=== PATIENT | female | born 1960 | race Hispanic/Latino ===

== ENCOUNTER → 2020-03-11 | Outpatient (REF) | payer OTHER ==
[~2020-03-11] MED LIST: AMIT50TA PO; ATOR40TA75 PO; OMEP10CASR PO; TOPI200T7 PO
[2020-04-25 11:47] LABS: ALBUMIN 3.9 GM/DL (3.2-5.2); BILIRUBIN,TOTAL 0.3 MG/DL (0.2-1.0); CALCIUM LEVEL 9.1 MG/DL (8.5-10.1); CHOLESTEROL RISK RATIO 2.875 (<5); CREATININE FOR GFR 1.2 MG/DL (0.55-1.30); GLOMERULAR FILTRATION RATE 49.1 (>51); POTASSIUM SERUM 4.4 MEQ/L (3.5-5.1); THYROID STIMULATING HORMONE 2.69 uIU/ML (0.358-3.740); TOTAL PROTEIN 6.9 GM/DL (6.4-8.2)
== END ==
LOC: M LAB REF 08:05
PROVIDERS: ATTEND Family Medicine Addiction Medicine
DX: E78.2 Mixed hyperlipidemia (principal)

== ENCOUNTER → 2020-05-05 | Outpatient (CLI) | payer OTHER ==
[2020-05-05 12:28] LABS: BASO # 0.1 10^3/uL (0.0-0.2); BASO % 0.8 % (0.0-1.0); EOS # 0.3 10^3/uL (0.0-0.5); HEMATOCRIT 45.2 % (36.0-47.0); HEMOGLOBIN 14.3 g/dl (12.0-15.5); LYMPH # 2.4 10^3/uL (1.5-5.0); LYMPH % 37.7 % (24.0-44.0); MEAN CORPUSCULAR HEMOGLOBIN 28.9 pg (27.0-33.0); MEAN CORPUSCULAR HGB CONC 31.6 g/dl (32.0-36.5); MEAN CORPUSCULAR VOLUME 91.5 fl (80.0-96.0); MONO # 0.4 10^3/uL (0.0-0.8); MONO % 6.8 % (0.0-5.0); NEUTROPHILS # 3.2 10^3/uL (1.5-8.5); NEUTROPHILS % 50.2 % (36.0-66.0); PLATELET COUNT, AUTOMATED 311 10^3/uL (150-450); RED BLOOD COUNT 4.94 10^6/uL (4.00-5.40); WHITE BLOOD COUNT 6.3 10^3/uL (4.0-10.0)
[2020-05-05 13:03] LABS: ALBUMIN 3.9 GM/DL (3.2-5.2); ALT/SGPT 29 U/L (12-78); BILIRUBIN,TOTAL 0.3 MG/DL (0.2-1.0); BLOOD UREA NITROGEN 18 MG/DL (7-18); CALCIUM LEVEL 9.5 MG/DL (8.5-10.1); CARBON DIOXIDE LEVEL 25 MEQ/L (21-32); CHLORIDE LEVEL 110 MEQ/L (98-107); CREATININE FOR GFR 1.21 MG/DL (0.55-1.30); GLOMERULAR FILTRATION RATE 48.7 (>51); GLUCOSE, FASTING 99 MG/DL (70-100); POTASSIUM SERUM 4.2 MEQ/L (3.5-5.1); RHEUMATOID FACTOR QUANT < 10.0 IU/ML (<15.0); SODIUM LEVEL 142 MEQ/L (136-145); TOTAL PROTEIN 7.2 GM/DL (6.4-8.2)
[2020-05-05 13:05] LABS: VITAMIN B12 LEVEL 418 PG/ML
[2020-05-05 13:07] LABS: FOLATE 7.5 NG/ML
[2020-05-05 13:17] LABS: ERYTHROCYTE SEDIMENTATION RATE 18 mm/hr (0-30)
[2020-05-05 13:27] LABS: HEMOGLOBIN A1c 5.9 %
[2020-05-09 19:06] LABS: ANTINUCLEAR ANTIBODIES DIRECT Negative (Negative); TOPIRAMATE LEVEL 12.1 ug/mL (2.0-25.0); VITAMIN B1 LEVEL WHOLE BLOOD 124.4 nmol/L (66.5-200.0); VITAMIN B6,PYRIDOXAL PHOSPHATE 5.2 ug/L (2.0-32.8); VITAMIN E(ALPHA TOCOPHEROL) 11.7 mg/L (7.0-25.1); VITAMIN E(GAMMA TOCOPHEROL) 2.8 mg/L (0.5-5.5)
== END ==
LOC: M LAB 09:31
PROVIDERS: ATTEND Psychiatry & Neurology Neurology
DX: R51 Headache (principal); E11.9 Type 2 diabetes mellitus without complications; G40.89 Other seizures; M19.90 Unspecified osteoarthritis, unspecified site

== ENCOUNTER → 2020-06-18 | Outpatient (CLI) | payer OTHER | LOC: M LABSMTC 12:10 | PROVIDERS: ATTEND Anesthesiology | DX: Z01.812 Encounter for preprocedural laboratory examination (principal); Z20.828 Contact with and (suspected) exposure to other viral communicable diseases ==

== ENCOUNTER 2020-06-23 09:11 | Day surgery (SDC) | payer OTHER ==
[~2020-06-23] VITALS: Ht 162.6 cm; Wt 92.0 kg
[~2020-06-23 09:11] MED LIST changes: +NS 1,000 ML IV ONE
[2020-06-23] MEDS ORDERED: LIDOCAINE 2% 100MG/5ML SDV (FOR ANES.) As Ordered ONE (09:32)
[2020-06-23] MEDS ORDERED: fentaNYL 100 MCG/2 ML INJECTION (J3010) As Ordered ONE (10:15)
[2020-06-23] MEDS ORDERED: propofoL 500 MG/50 ML VIAL As Ordered ONE (10:27)
[2020-06-23 11:25] VITALS: BP 118/60
--- NOTE | 2020-06-23 11:27 | ROOR ---
Patient Name: Shanta Lees Procedure Date: 06/23/2020 10:28 AM Date of : 1960 Age: 59 Room: [facility] Gender: Female Note Status: Finalized Procedure: Upper GI endoscopy Indications: Heartburn, Suspected gastro-esophageal reflux disease Providers: Randy Ledesma MD Referring MD: Higinio COLLAZO MD Requesting Provider: Medicines: Monitored Anesthesia Care Complications: No immediate complications. Procedure: Pre-Anesthesia Assessment: - Prior to the procedure, a History and Physical was performed, and patient medications and allergies were reviewed. The patient is competent. The risks and benefits of the procedure and the sedation options and risks were discussed with the patient. All questions were answered and informed consent was obtained. Patient identification and proposed procedure were verified by the physician, the nurse and the anesthesiologist in the procedure room. Mental Status Examination: alert and oriented. Airway Examination: normal oropharyngeal airway and neck mobility. Respiratory Examination: clear to auscultation. CV Examination: normal. Prophylactic Antibiotics: The patient does not require prophylactic antibiotics. Prior Anticoagulants: The patient has taken no previous anticoagulant or antiplatelet agents. ASA Grade Assessment: II - A patient with mild systemic disease. After reviewing the risks and benefits, the patient was deemed in satisfactory condition to undergo the procedure. The anesthesia plan was to use monitored anesthesia care (MAC). Immediately prior to administration of medications, the patient was re-assessed for adequacy to receive sedatives. The heart rate, respiratory rate, oxygen saturations, blood pressure, adequacy of pulmonary ventilation, and response to care were monitored throughout the procedure. The physical status of the patient was re-assessed after the procedure. The Endoscope was introduced through the mouth, and advanced to the second part of duodenum. The upper GI endoscopy was accomplished without difficulty. The patient tolerated the procedure well. Findings: The Z-line was irregular and was found 40 cm from the incisors. No gross lesions were noted in the entire esophagus. Scattered mild inflammation characterized by erythema and granularity was found in the gastric antrum. Biopsies were taken with a cold forceps for Helicobacter pylori testing. Verification of patient identification for the specimen was done by the physician and nurse using the patient's name, date and medical record number. Estimated blood loss was minimal. The duodenal bulb and second portion of the duodenum were normal. Impression: - Z-line irregular, 40 cm from the incisors. - No gross lesions in esophagus. - Gastritis. Biopsied. - Normal duodenal bulb and second portion of the duodenum. Recommendation: - Patient has a contact number available for emergencies. The signs and symptoms of potential delayed complications were discussed with the patient. Return to normal activities tomorrow. Written discharge instructions were provided to the patient. - High fiber diet. - Continue present medications. - Await pathology results. - Follow an antireflux regimen. - Telephone GI clinic for pathology results in 2 weeks. - Return to primary care physician. Procedure Code(s): --- Professional --- 59245, Esophagogastroduodenoscopy, flexible, transoral; with biopsy, single or multiple Diagnosis Code(s): --- Professional --- K22.8, Other specified diseases of esophagus K29.70, Gastritis, unspecified, without bleeding R12, Heartburn CPT copyright 2019 [employer]. All rights reserved. The codes documented in this report are preliminary and upon emergency communications dispatcher review may be revised to meet current compliance requirements. Randy Ledesma MD Randy Ledesma MD 06/23/2020 11:26:36 AM Electronically signed by Randy Ledesma MD Number of Addenda: 0 Note Initiated On: 06/23/2020 10:28 AM Estimated Blood Loss: Estimated blood loss was minimal.
--- NOTE | 2020-06-23 11:30 | ROOR ---
Patient Name: Shanta Colon Procedure Date: 06/23/2020 10:28 AM Date of : 1960 Age: 59 Room: [facility] Gender: Female Note Status: Finalized Procedure: Colonoscopy Indications: High risk colon cancer surveillance: Personal history of colonic polyps Providers: Randy Ledesma MD Referring MD: Higinio COLLAZO MD Requesting Provider: Medicines: Monitored Anesthesia Care Complications: No immediate complications. Procedure: Pre-Anesthesia Assessment: - Prior to the procedure, a History and Physical was performed, and patient medications and allergies were reviewed. The patient is competent. The risks and benefits of the procedure and the sedation options and risks were discussed with the patient. All questions were answered and informed consent was obtained. Patient identification and proposed procedure were verified by the physician, the nurse and the anesthesiologist in the procedure room. Mental Status Examination: alert and oriented. Airway Examination: normal oropharyngeal airway and neck mobility. Respiratory Examination: clear to auscultation. CV Examination: normal. Prophylactic Antibiotics: The patient does not require prophylactic antibiotics. Prior Anticoagulants: The patient has taken no previous anticoagulant or antiplatelet agents. ASA Grade Assessment: II - A patient with mild systemic disease. After reviewing the risks and benefits, the patient was deemed in satisfactory condition to undergo the procedure. The anesthesia plan was to use monitored anesthesia care (MAC). Immediately prior to administration of medications, the patient was re-assessed for adequacy to receive sedatives. The heart rate, respiratory rate, oxygen saturations, blood pressure, adequacy of pulmonary ventilation, and response to care were monitored throughout the procedure. The physical status of the patient was re-assessed after the procedure. The Colonoscope was introduced through the anus and advanced to the terminal ileum, with identification of the appendiceal orifice and IC valve. The colonoscopy was performed without difficulty. The patient tolerated the procedure well. The quality of the bowel preparation was good. The terminal ileum, ileocecal valve, appendiceal orifice, and rectum were photographed. Scope insertion time was 2 minutes. Scope withdrawal time was 9 minutes. The total duration of the procedure was 14 minutes. Findings: The perianal and digital rectal examinations were normal. The terminal ileum appeared normal. Two sessile polyps were found in the recto-sigmoid colon and transverse colon. The polyps were 4 to 6 mm in size. These polyps were removed with a jumbo cold forceps. Resection and retrieval were complete. Verification of patient identification for the specimen was done by the physician and nurse using the patient's name, date and medical record number. Estimated blood loss was minimal. A few small-mouthed diverticula were found from sigmoid to transverse colon. There was no evidence of diverticular bleeding. The ileocecal valve was mildly lipomatous. Biopsies were taken with a cold forceps for histology. Non-bleeding external and internal hemorrhoids were found during retroflexion. The hemorrhoids were medium-sized. Impression: - The examined portion of the ileum was normal. - Two 4 to 6 mm polyps at the recto-sigmoid colon and in the transverse colon, removed with a jumbo cold forceps. Resected and retrieved. - Mild diverticulosis from sigmoid to transverse colon. There was no evidence of diverticular bleeding. - Lipomatous ileocecal valve. Biopsied. - Non-bleeding external and internal hemorrhoids. Recommendation: - Patient has a contact number available for emergencies. The signs and symptoms of potential delayed complications were discussed with the patient. Return to normal activities tomorrow. Written discharge instructions were provided to the patient. - High fiber diet. - Continue present medications. - Use fiber, for example Citrucel, Fibercon, Konsyl or Metamucil. - Await pathology results. - Repeat colonoscopy in 5-10 years for surveillance based on pathology results. - Telephone GI clinic for pathology results in 2 weeks. - Return to primary care physician. Procedure Code(s): --- Professional --- 75633, Colonoscopy, flexible; with biopsy, single or multiple Diagnosis Code(s): --- Professional --- Z86.010, Personal history of colonic polyps K64.8, Other hemorrhoids K63.5, Polyp of colon K63.89, Other specified diseases of intestine K57.30, Diverticulosis of large intestine without perforation or abscess without bleeding CPT copyright 2019 [employer]. All rights reserved. The codes documented in this report are preliminary and upon packer and carry out review may be revised to meet current compliance requirements. Randy Ledesma MD Randy Ledesma MD 06/23/2020 11:30:05 AM Electronically signed by Randy Ledesma MD Number of Addenda: 0 Note Initiated On: 06/23/2020 10:28 AM Estimated Blood Loss: Estimated blood loss was minimal.
== END 2020-06-23 12:00 | disposition home or self-care (01) ==
LOC: M OPP 09:11
PROVIDERS: ATTEND Internal Medicine Gastroenterology
DX: Z86.010 Personal history of colon polyps (principal); Z09 Encounter for follow-up examination after completed treatment for conditions other than malignant neoplasm; K64.8 Other hemorrhoids; K63.5 Polyp of colon; K63.89 Other specified diseases of intestine; K57.30 Diverticulosis of large intestine without perforation or abscess without bleeding; K22.8 Other specified diseases of esophagus; K29.70 Gastritis, unspecified, without bleeding; R12 Heartburn; Z79.899 Other long term (current) drug therapy; Z88.2 Allergy status to sulfonamides; Z88.5 Allergy status to narcotic agent; Z88.8 Allergy status to other drugs, medicaments and biological substances; Z87.891 Personal history of nicotine dependence
CPT/HCPCS: 43239; 45380; 88305; J3010

== ENCOUNTER → 2020-08-14 | Outpatient (REF) | payer OTHER ==
[~2020-08-14] MED LIST changes: -NS 1,000 ML IV ONE
[2020-08-14 17:50] LABS: APPEARANCE, URINE CLEAR (CLEAR); BACTERIA, URINE AUTO 1+ (NEGATIVE); BILIRUBIN, URINE AUTO NEGATIVE (NEGATIVE); BLOOD, URINE BLOOD NEGATIVE (NEGATIVE); COLOR, URINE AMBER (YELLOW); GLUCOSE, URINE (UA) AUTO NEGATIVE (NEGATIVE); KETONE, URINE AUTO NEGATIVE (NEGATIVE); LEUKOCYTE ESTERASE, URINE AUTO TRACE (NEGATIVE); MUCUS, URINE SMALL (NEGATIVE); NITRITE, URINE AUTO POSITIVE (NEGATIVE); PROTEIN, URINE AUTO NEGATIVE (NEGATIVE); RBC, URINE AUTO 0 /HPF (0-3); SPECIFIC GRAVITY URINE AUTO 1.004 (1.002-1.035); SQUAMOUS EPITHELIAL CELL UR AU 2 /HPF (0-6); UROBILINOGEN, URINE AUTO 0.2 mg/dL (0.0-2.0); WBC, URINE AUTO 2 /HPF (0-3)
== END ==
LOC: M LAB REF 16:43
PROVIDERS: ATTEND Family Medicine Addiction Medicine
DX: R30.9 Painful micturition, unspecified (principal)

== ENCOUNTER → 2020-08-26 | Outpatient (CLI) | payer OTHER ==
--- NOTE | 2020-08-28 | ECWPNPC ---
PATIENT NAME: ELISSA ALVAREZ : 1960 GENDER: FEMALE VISIT DATE: 08/26/2020 DISCHARGE DATE: 08/26/20 1424 VISIT LOCKED DATE TIME: PHYSICIAN: DENA ELKINS RESOURCE: DENA ELKINS REASON FOR APPOINTMENT 1. BACK PAIN HISTORY OF PRESENT ILLNESS GENERAL: 59-YEAR-OLD FEMALE REFERRED BY [facility] TO EVALUATE CHRONIC NECK AND LOW BACK PAIN. CHIEF AREA OF PAIN IS LOWER BACK WITH RADIATION INTO HER LEFT LEG. ALSO SUFFERS FROM NEUROPATHY. REPORTS FREQUENT FALLING. WAS DOING WELL AFTER PHYSICAL THERAPY AND LUMBAR EPIDURAL STEROID INJECTION THAT WAS DONE IN [place] ONE YEAR AGO UNTIL SHE FELL THIS PAST SUMMER FRACTURING HER RIGHT FOOT. STATES HER LOW BACK PAIN HAS BEEN SIGNIFICANTLY INCREASED SINCE FALL. DENIES URINARY OR BOWEL INCONTINENCE. NO RECENT MRI IMAGING OF THE LUMBAR SPINE. PATIENT STATES SHE HAS LIPOMA AROUND HER SPINAL CORD THAT PAIN SPECIALIST IN [place] WERE CONTEMPLATING DCS TRIAL BUT THEN THEY MOVED. DENIES SADDLE PARESTHESIAS. NO RECENT ILLNESS OR SUDDEN WEIGHT LOSS. -. FALL RISK SCREENING: SCREENING :ONE FALL WITH INJURY IN THE PAST YEAR PATIENT FELL AND BROKE FOOT. PATIENT WAS SEEN AT [facility]. PAIN SCREENING: PATIENT HAS A COMPLAINT OF ACUTE OR CHRONIC PAIN :NO NURSING NOTE: -. PAIN CENTER INTAKE QUESTIONS: DO YOU HAVE A HISTORY OF MRSA? :NO DO YOU TAKE A BLOOD THINNERS? :NO DO YOU HAVE ANY BLEEDING DISORDERS? :NO ANY NEW NUMBNESS OR WEAKNESS IN YOUR LEGS OR ARMS? :NO ANY PACEMAKER,DEFIBRILLATOR, OR DORSAL COLUMN STIMULATOR? :NO DO YOU HAVE ANY RASHES OR OPEN SORES? :YES PATIENT STATES SHE HAS A RASH ON RIGHT LEG ABOVE KNEE. ARE YOU ALLERGIC TO IV DYE? :NO ARE YOU DIABETIC? :NO ANY NEW PROBLEMS WITH YOUR MEDICATIONS? :NO HAVE YOU RECEIVED A VACCINE IN THE PAST 30 DAYS? :NO DO YOU PLAN TO RECEIVE A VACCINE IN THE NEXT 21 DAYS? :YES PATIENT WOULD LIKE COVID VACCINATION WHEN IT BECOMES AVAILABLE. DO YOU NEED ANY PRESCRIPTION? :NO DO YOU TAKE ANY IMMUNOSUPPRESSIVE MEDICATIONS? :NO IS THERE A CHANCE YOU COULD BE ? :NO ARE YOU BREAST FEEDING? :NO CURRENT MEDICATIONS TAKING TOPIRAMATE 200 MG TABLET TAKE ONE TABLET BY MOUTH TWICE A DAY ORALLY TAKING CHLORHEXIDINE GLUCONATE 0.12 % SOLUTION RINSE MOUTH WITH 10ML FOR 1 MINUTE BEFORE BED MOUTH/THROAT TAKING AMITRIPTYLINE HCL 50 MG TABLET 2 TABLET AT BEDTIME ORALLY ONCE A DAY TAKING LIDOCAINE 4 % PATCH DIRECTED EXTERNALLY TAKING LIPITOR 40 MG TABLET 1 TABLET ORALLY ONCE A DAY TAKING TOPAMAX 200 MG TABLET DIRECTED ORALLY TWICE DAILY NOT-TAKING OMEPRAZOLE MAGNESIUM 20 MG TABLET DELAYED RELEASE 1 TABLET 30 MINUTES BEFORE MORNING MEAL ORALLY ONCE A DAY NOT-TAKING ALPRAZOLAM 0.25 MG TABLET (SCHEDULE IV DRUG) TAKE 1 TABLET BY MOUTH ONE HOUR BEFORE MRI MAXIMUM DAILY DOSE 1 ORAL MEDICATION LIST REVIEWED AND RECONCILED WITH THE PATIENT PAST MEDICAL HISTORY GENERALIZED CONVULSIVE EPILEPSY LOCALIZATION-RELATED EPILEPSY LOW BACK PAIN SPONDYLOLYSIS LUMBAR RADICULOPATHY NECK PAIN 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 MIGRAINE WITHOUT AURA, NOT REFRACTORY DISORDERS OF INITIATING AND MAINTAINING SLEEP BILATERAL CARPAL TUNNEL SYNDROME LIPOMITOSIS ALLERGIES VALPROIC ACID SULFAMETHOXAZOLE SURGICAL HISTORY OOPHERECTOMY 2003 COMPLETE HYSTERECTOMY 2002 SOCIAL HISTORY GENERAL: TOBACCO USE ARE YOU A:NONSMOKER LATEX QUESTIONNAIRE LATEX ALLERGY : HAVE YOU EVER DEVELOPED ANY TYPE OF REACTION AFTER HANDLING LATEX PRODUCTS SUCH RUBBER GLOVES, CONDOMS, DIAPHRAGMS, BALLOONS, SOCKS, OR UNDERWEAR?NO LATEX ALLERGY : HAVE YOU EVER DEVELOPED ANY TYPE OF REACTION DURING OR AFTER DENTAL APPOINTMENT, VAGINAL/RECTAL EXAMINATION, SURGICAL PROCEDURE, OR ANY OTHER EXPOSURE?NO LATEX RISK : HAVE YOU EVER HAD ANY DIFFICULTY BREATHING OR HIVES AFTER EATING OR HANDLING ANY FRUITS, OR VEGETABLES; SUCH KIWI, BANANAS, STONE FRUITS, OR CHESTNUTSNO LATEX RISK : DO YOU HAVE A PREVIOUS PERSONAL HISTORY OF MORE THAN NINE SURGERIES, SPINA BIFIDA, OR REPEATED CATHERIZATIONS? NO LATEX RISK : ARE YOU FREQUENTLY EXPOSED TO LATEX PRODUCTS IN YOUR OCCUPATION?NO DATE ASKED : 08/26/2020 ALCOHOL USE: NO. RECREATIONAL DRUG USE DRUG USE?YES LEARNING BARRIERS / SPECIAL NEEDS BARRIERS TO LEARNING?NO HEARING IMPAIRED?NO VISION IMPAIRED?YES :CORRECTIVE LENSES COGNITIVELY IMPAIRED?YES PATIENT STATES SHE BELIEVES IT STEMS FROM THE SEIZURES. :LEARNING DISABILITY READINESS TO LEARN?YES LEARNING PREFERENCES?YES :BOOKLETS, HANDOUTS LEARNING CAPABILITIES PRESENT?YES EMOTIONAL BARRIERS?NO SPECIAL DEVICES?YES :CANE, BRACE SURGICAL AIDE NEEDED?NO HOSPITALIZATION/MAJOR DIAGNOSTIC PROCEDURE HOSPITALIZATIONS FROM ABOVE SURGERIES REVIEW OF SYSTEMS CONSTITUTIONAL: ANY RECENT FEVER NO . CHILLS NO . WEIGHT CHANGE OF UNKNOWN REASONS NO . MUSCULOSKELETAL: ANY UNUSUAL JOINT PAIN OR SWELLING NOT MENTIONED NO . SYSTEMIC LUPUS NO . ANY NEUROMUSCULAR DISORDER NOT MENTIONED NO . LYME DISEASE NO . GASTROENTEROLOGY: ANY NEW CHANGE IN BOWEL CONTROL? NO . HISTORY OF LIVER DISORDER NOT MENTIONED NO . HISTORY OF UNUSUAL ABDOMINAL PAIN OR CRAMPING NOT MENTIONED NO . NO CONSTIPATION. GENITOURINARY: ANY NEW CHANGE IN BLADDER CONTROL? NO . ANY RENAL/KIDNEY CONDITON NOT MENTIONED NO . NEUROLOGY: HISTORY OF TBI NOT MENTIONED NO . HAVE YOU FALLEN IN THE PAST 12 MONTHS? NO . ANY NEW SEIZURES? HISTORY OF SEIZURE DISORDER . LAST SEIZURE WAS SEVERAL YEARS AGO. . HEAD INJURY NO . DEMENTIA NO . CEREBRAL PALSY NO . MULTIPLE SCLEROSIS NO . MYAASTHENIA GRAVIS NO . NEW ONSET DIZZINESS OR NEUROLOGICAL CHANGES NOT MENTIONED NO . DIZZINESS NO . VERTIGO NO . CARDIOLOGY: HEART SURGERY NO . CONGESTIVE HEART FAILURE/FLUID OVERLOAD NOT MENTIONED NO . HISTORY OF CHEST PAIN,IRREGULAR HEART BEAT NOT MENTIONED NO . RESPIRATORY: SHORTNESS OF BREATH ON EXERTION, WHEEZES, UNUSUAL COUGH NOT MENTIONED NO . ENDOCRINOLOGY: ADRENAL GLAND OR THYROID DISORDERS NOT MENTIONED NO . UNUSUAL URINATION, DIZZINESS OR LETHARGY NOT MENTIONED NO . VITAL SIGNS WT 206.2 LBS, HT 64 IN, BMI 35.39 INDEX, BP 139/84 MM HG, HR 85 /MIN, RR 18 /MIN, TEMP 99.1 F, OXYGEN SAT % 97, SAFE IN ENV? (Y/N) LUIS A STRAUSS MA. EXAMINATION GENERAL EXAMINATION: GENERALNO ACUTE DISTRESS, WELL NOURISHED AND HYDRATED. PSYCHAPPROPRIATE MOOD AND AFFECT . NECK:NO LYMPHADENOPATHY. LUNGS:CLEAR TO AUSCULTATION BILATERALLY, NO WHEEZES, RHONCHI, RALES. HEART:NO MURMURS, REGULAR RATE AND RHYTHM. MUSCULOSKELETAL:WEAKNESS NOTED OVER BILATERAL LOWER EXTREMITIES LEFT GREATER THAN RIGHT . LUMBAR: PALPATION: + FOR PAIN OVER L/S SPINE. + FOR PAIN OVER L/S PARSPINALS. ASSESSMENTS LOW BACK PAIN AT MULTIPLE SITES - M54.5 (PRIMARY) TREATMENT LOW BACK PAIN AT MULTIPLE SITES START VALIUM TABLET, 5 MG, 1 TAB, ORALLY, 30 MINUTES PRIOR TO MRI MDD 1, 1 DAYS, 1, REFILLS 0 [facility] MRI LS SPINE W/O AND WITH [id number] NOTES: WE WILL CONSIDER INTERVENTIONAL TREATMENT OPTIONS ONCE MRI IS REVIEWED. I ORDERED THIS WITH AND WITHOUT CONTRAST DUE TO PATIENT'S REPORTED HISTORY OF LIPOMA AROUND SPINAL CORD AND AGGRAVATION OF HER LOWER BACK PAIN AND LEFT LEG RADICULAR SYMPTOMS AFTER A FALL INJURY 6 MONTHS AGO. PROCEDURE CODES FA211 ESTABILISHED PATIENT [facility] CHARGE DISPOSITION & COMMUNICATION FOLLOW UP 6 WEEKS (REASON: REVIEW MRI L/S SPINE) ELECTRONICALLY SIGNED BY GUANAKITO CEJA ON 08/27/2020 AT 02:02 PM EST DISCLAIMER : THIS IS A VISIT SUMMARY EXTRACTED FROM THE [employer] CHART. IT IS NOT A COPY OF THE [employer] PROGRESS NOTE. TALAT
== END ==
LOC: M PAIN 13:00
PROVIDERS: ATTEND Nurse Practitioner Family
DX: M54.5 Low back pain (principal); G40.009 Localization-related (focal) (partial) idiopathic epilepsy and epileptic syndromes with seizures of localized onset, not intractable, without status epilepticus; M47.812 Spondylosis without myelopathy or radiculopathy, cervical region; G43.909 Migraine, unspecified, not intractable, without status migrainosus; Z79.899 Other long term (current) drug therapy; Z88.2 Allergy status to sulfonamides; Z88.8 Allergy status to other drugs, medicaments and biological substances

== ENCOUNTER 2020-09-29 17:00 | Emergency (ER) | payer OTHER ==
[~2020-09-29] VITALS: Ht 162.6 cm; Wt 86.8 kg
--- OUTSIDE RECORDS SUMMARY | 2020-09-29 17:06 | CCD ---
Author Organization Unknown Address [address] [place] [address] Phone [phone] Care Team Providers Care Telemetry Monitor Name Role Phone Higinio Arauz Unavailable Unavailable Allergies Code Code System Name Reaction Severity Status Onset 243041 RxNorm Depakote Active 02/06/2020 318326 RxNorm Demerol Active Nsaids (Non- steroidal Anti-inflammatory Drug) Active Sulfa (Sulfonamide Antibiotics) Active Notes: DEMEROL (MEPERIDINE HCL) | SULFA ANTIBIOTICS Medications Name Status Start Date Stop Date Aerochamber Plus Flow-Vu Active Not aubrie ilable Afluria Quad 60 mcg (15 mcg x 4)/0.5 mL intramuscu lar susp. Completed 05/26/2020 alprazolam 0.25 mg tablet Completed 2019 alprazolam 0.5 mg tablet Completed 020 amitriptyline 50 mg tablet Active Not a vailable aspirin 81 mg tablet,delayed release Completed 05/26/2020 atorvastatin 10 mg tablet Completed 2019 atorvastatin 20 mg tablet Completed 2019 atorvastatin 40 mg tablet Active Not av ailable azithromycin 250 mg tablet Completed 05/26 benzonatate 100 mg capsule Completed 05/26 cefdinir 300 mg capsule Completed 09/17/19 21 cephalexin 500 mg capsule Completed 2019 chlorhexidine gluconate 0.12 % mouthwash Active Not available Ciprodex 0.3 %-0.1 % ear drops,suspension Completed 05/26/2020 ciprofloxacin 250 mg tablet Completed 09/07 clarithromycin 500 mg tablet Completed 06/2021 codeine 10 mg-guaifenesin 100 mg/5 mL oral liquid Completed 05/26/2020 diazepam 5 mg tablet Completed 09/17/2020 hydrocodone 5 mg-acetaminophen 325 mg tablet Completed 05/26/2020 metoprolol tartrate 100 mg tablet Completed 05/26/2020 Mucinex 600 mg tablet, extended release Completed 05/26/2020 Nasal Flasher (oxymetazoline) 0.05 % Completed 05/26/2020 nortriptyline 25 mg capsule Completed 05/08 omeprazole 20 mg capsule,delayed release Active Not available oxycodone-acetaminophen 5 mg-325 mg tablet Completed 09/17/2020 peg-electrolyte solution 420 gram oral solution Completed 09/17/2020 prednisone 10 mg tablet Completed 05/26/20 ProAir HFA 90 mcg/actuation aerosol inhaler Active Not available topiramate 100 mg tablet Completed 020 topiramate 200 mg tablet Active Not aubrie ilable topiramate 50 mg tablet Completed 06/04/20 triamcinolone acetonide 0.1 % topical cream Completed 05/26/2020 Problems Name Status Onset Date Source Mixed Hyperlipidemia Active 02/06/2020 History Chronic Constipation Active 02/06/2020 History Low Back Pain Active 02/06/2020 History Localization-related Symptomatic Epilepsy Active 2019 History Lumbosacral Radiculopathy Active 02/20/2020 Histor y Abnormal Findings on Diagnostic Imaging of Breast Active 03/19/2020 History Clinical Finding Active 03/19/2020 History Cellulitis of Finger of Right Hand Active 04/28/2020 History Acute Bacterial Sinusitis Active 05/26/2020 Chronic Depression Active 06/04/2020 Mammography Abnormal Active 06/04/2020 Screening for Malignant Neoplasm of Breast Active 09/03 Procedures Date Name Performed by 06/04/2020 MAMMO, Diagnostic, Digital, Bilateral [facility] [address] [place] [address] (Work [address]) 09/03/2020 MAMMO, Screening, Digital, Bilateral [facility] [address] [place] [address] (Work Place) Notes: totaly hysterectomy 2004 | totaly hysterectomy 2003, Results Lab Results Date Name Specimen Result Interpretation Description Value Range Status Address 08/14/2020 Urinalysis, Dipstick Urine Normal Appearance, Uri ne clear clear Final [facility]: [address] [facility] Urine Normal Color, Urine brielle yellow Final [facility]: [address] [facility] Urine Normal pH,urine 6.0 units 5.0-9.0 units Fin al [facility]: [address] [facility] Urine Normal Specific [place] Urine Auto 1.004 1 .002-1.035 [facility]: [address] [facility] Urine Normal Protein, Urine Auto negative mg/dL n egative mg/dL [facility]: [address] [facility] Urine Normal Glucose, Urine (UA) Auto negat roberto carlos mg/dL negative mg/dL [facility]: [address] [facility] Urine Normal Ketone, Urine Auto negative mg/dL ne gative mg/dL [facility]: [address] [facility] Urine Normal Urobilinogen, Urine Auto 0.2 mg/dL 0 .0-2.0 mg/dL [facility]: [address] [facility] Urine Normal Bilirubin, Urine Auto negative negat roberto carlos [facility]: [address] [facility] Urine Normal Nitrite, Urine Auto positive negativ e [facility]: [address] [facility] Urine High Leukocyte Esterase, Urine Auto trace negative [facility]: [address] [facility] Urine Normal Blood, Urine Blood negative negative [facility]: [address] [facility] Urine Normal WBC, Urine Auto 2 /hpf 0-3 /hpf [facility]: [address] [facility] Urine Normal RBC, Urine Auto 0 /hpf 0-3 /hpf [facility]: [address] [facility] Urine High Bacteria, Urine Auto 1+ negative [facility]: [address] [facility] Urine Normal Squamous Epithelial Cell Ur AU 2 /hp f 0-6 /hpf [facility]: [address] [facility] Urine Normal Mucus, Urine small negative [facility]: [address] [facility] Urine Normal Hyaline Cast, Urine Auto 0 /lpf 0-1 /lpf [facility]: [address] [facility] Past Encounters 09/17/2020 Insomnia; Acute Cystitis Higinio Arauz MD: [address] [place] [phone], Ph. 08/14/2020 Higinio Arauz MD: [address] [place] [phone], Ph. 06/04/2020 Immunization Due; Mammography Abnormal; Low Back Pain; Localization-related Symptomatic Epilepsy Higinio Arauz MD: [address] [place] [phone], Ph. 05/26/2020 Acute Bacterial Sinusitis Higinio Arauz MD: [address] [place] [address], Ph. Social History Tobacco Smoking Status Former Smoker Vaccine List Vaccine Type Influenza, injectable, MDCK, preservativ e free, quadrivalent 04/24/2020 Tdap 06/04/20200.5 mL Plan of Care Reminders Provider Appointments None recorded. Lab None recorded. Referral None recorded. Procedures None recorded. Surgeries None recorded. Imaging None recorded. Vitals 09/17/2020 10:20AM TELEHEALTH 20 Height 64 in 06/04/2020 04:20PM ESTABLISHED [id number] Height Weight BMI Blood Pressure 64 in 207 lbs 16 oz 35.7 kg/m2 119/82 mm[Hg] 05/26/2020 01:20PM SAME DAY 20 Height Weight BMI Blood Pressure 64 in 198 lbs 4 oz 34 kg/m2 163/91 mm[Hg] 04/28/2020 Height Weight BMI Blood Pressure 64 in 196 lbs 9.6 oz 33.87 kg/m2 120/84 mm[Hg ] 03/19/2020 Height Weight BMI Blood Pressure 64 in 196 lbs 33.76 kg/m2 102/72 mm[Hg] 02/06/2020 Height Weight BMI Blood Pressure 64 in 190 lbs 32.73 kg/m2 122/86 mm[Hg]"
--- OUTSIDE RECORDS SUMMARY | 2020-09-29 17:06 | CCD | Continuity of Care Document ---
Author Author Shanta ODWNEY M.D. Organization Unknown Address [address] [place] [phone] Phone [phone] Problems Active Problems Provider Date Generalized convulsive epilepsy Flavio Downey M.D. Onset: 0 05/05/2020 Localization-related epilepsy Flavio Downey M.D. Onset: Low back pain Flavio Downey M.D. Onset: 05/05/2020 Spondylolysis Flavio Downey M.D. Onset: 05/05/2020 Lumbar radiculopathy Flavio Downey M.D. Onset: 05/05/2020 Neck pain Flavio Downey M.D. Onset: 05/05/2020 Spondylolysis of cervical spine Flavio Downey M.D. Onset: 0 05/05/2020 Cervico-occipital neuralgia Flavio Downey M.D. Onset: 05/05 Chronic tension-type headache Flavio Downey M.D. Onset: 11/2019 Migraine without aura, not refractory Flavio Downey M.D. On set: 07/10/2020 Disorders of initiating and maintaining sleep Darius Lux Onset: 07/10/2020 Bilateral carpal tunnel syndrome Flavio Downey M.D. Onset: 07/10/2020 Social History Type Date Description Comments Sex Unknown Tobacco Use Start: Unknown Patient has never smoked Allergies, Adverse Reactions, Alerts Active Allergies Reaction Severity Comments Date Valproic Acid 05/05/2020 Sulfamethoxazole 05/05/2020 Demerol 05/05/2020 Medications Active Medications SIG Qnty Indications Ordering Provide r Date Amitriptyline HCL 50mg Tablets 2 po qhs. 60tabs Flavio Downey M.D. 05/05/2020 Topiramate 200mg Tablets 1 po bid. 60tabs Flavio Downey, M.D. 05/05/2020 Alprazolam 0.5mg Tablets 1 tab by mouth half an hour before mri scan. may repeat once if needed. 2todd Downey M.D. 05/05/2020 Immunizations Description No Information Available Vital Signs Date Vital Result Comment 05/05/2020 8:29am BP Systolic 130 mmHg BP Diastolic 85 mmHg Heart Rate 94 /min Respiratory Rate 14 /min Height 64 inches 5'4" Weight 195.00 lb BMI (Body Mass Index) 33.5 kg/m2 [place] Body Weight 120 lb Results Test Acquired Date Facility Test Result H/L Range Note Vitamin E Level 05/05/2020 [facility] Vitamin E(Alpha Tocopherol) 11.7 mg/L Normal 7.0-25.1 Vitamin E(Gamma Tocopherol) 2.8 mg/L Normal 0.5-5.5 1 Laboratory test finding 05/05/2020 [facility] Vitamin B1 Level Whole Blood 124.4 nmol/L Normal 66.5-200.0 2 Vitamin B6,Pyridoxal Phosphate 5.2 ug/L Normal 2.0-32.8 3 Antinuclear Antibodies Negative Normal Negative 4 Topiramate 12.1 ug/mL Normal 2.0-25.0 5 Comprehensive Metabolic Profil 05/05/2020 [facility] Glucose, Fasting 99 mg/dL Normal 70-100 Blood Urea Nitrogen 18 mg/dL Normal 7-18 Creatinine For GFR 1.21 mg/dL Normal 0.55-1.30 Glomerular Filtration Rate 48.7 Low >51 6 Sodium Level 142 mEq/L Normal 136-145 Potassium Serum 4.2 mEq/L Normal 3.5-5.1 Chloride Level 110 mEq/L High 98-107 Carbon Dioxide Level 25 mEq/L Normal 21-32 Anion Gap 7 mEq/L Low 8-16 Calcium Level 9.5 mg/dL Normal 8.5-10.1 Ast/Sgot 14 U/L Normal 7-37 Alt/SGPT 29 U/L Normal 12-78 Alkaline Phosphatase 169 U/L High 45-117 Bilirubin,Total 0.3 mg/dL Normal 0.2-1.0 Total Protein 7.2 GM/DL Normal 6.4-8.2 Albumin 3.9 GM/DL Normal 3.2-5.2 Albumin/Globulin Ratio 1.2 Normal 1.2-2.2 Vitamin B12 & Folate 05/05/2020 [facility] Vitamin B12 Level 418 pg/mL Normal 7 Folate 7.5 NG/ML Normal 8 Laboratory test finding 05/05/2020 [facility] Rheumatoid Factor Quant < 10.0 IU/mL Normal <15.0 CBC With Differential 05/05/2020 [facility] White Blood Count 6.3 10 Normal 4.0-10.0 Red Blood Count 4.94 10 Normal 4.00-5.40 Hemoglobin 14.3 g/dL Normal 12.0-15.5 Hematocrit 45.2 % Normal 36.0-47.0 Mean Corpuscular Volume 91.5 fl Normal 80.0-96.0 Mean Corpuscular Hemoglobin 28.9 pg Normal 27.0-33.0 Mean Corpuscular HGB Conc 31.6 g/dL Low 32.0-36.5 Red Cell Distribution Width 13.0 % Normal 11.5-14.5 Platelet Count, Automated 311 10 Normal 150-450 Neutrophils % 50.2 % Normal 36.0-66.0 Lymph % 37.7 % Normal 24.0-44.0 [place] % 6.8 % High 0.0-5.0 Eos % 4.0 % High 0.0-3.0 Baso % 0.8 % Normal 0.0-1.0 Immature Granulocyte % 0.5 % Normal 0-3.0 Nucleated Red Blood Cell % 0.0 % Normal 0-0 Neutrophils # 3.2 10 Normal 1.5-8.5 Lymph # 2.4 10 Normal 1.5-5.0 [place] # 0.4 10 Normal 0.0-0.8 Eos # 0.3 10 Normal 0.0-0.5 Baso # 0.1 10 Normal 0.0-0.2 Laboratory test finding 05/05/2020 [facility] Erythrocyte Sedimentation Rate 18 mm/hr Normal 0-30 Hemoglobin A1c 05/05/2020 [facility] Hemoglobin A1c 5.9 % Normal 9 Estimated Average Glucose 123 mg/dL High 60-110 1 Reference intervals for alph a and gamma-tocopherol determined from National Health and Nutrition Examination Survey, 2685-2703. Individuals with alpha-tocopherol levels less than 5.0 mg/L are considered vitamin E deficient. 2 Specimen Comment: Test(s) 07 0141-Vitamin E(Alpha Tocopherol); 926119- Specimen Comment: Vitamin E(Gamma Tocopherol); 535917-Ymwrapl B6; 651372- Specimen Comment: Vit. B1, Whole Blood Specimen Comment: was developed and its performance characteristics Specimen Comment: determined by [facility]. It has not been cleared or approved Specimen Comment: by the Food and Drug Administration. 3 Specimen Comment: Test(s) 07 0141-Vitamin E(Alpha Tocopherol); 797427- Specimen Comment: Vitamin E(Gamma Tocopherol); 535163-Bxnybhv B6; 018893- Specimen Comment: Vit. B1, Whole Blood Specimen Comment: was developed and its performance characteristics Specimen Comment: determined by [facility]. It has not been cleared or approved Specimen Comment: by the Food and Drug Administration. 4 Specimen Comment: Test(s) 07 0141-Vitamin E(Alpha Tocopherol); 027574- Specimen Comment: Vitamin E(Gamma Tocopherol); 088288-Dflljuh B6; 947872- Specimen Comment: Vit. B1, Whole Blood Specimen Comment: was developed and its performance characteristics Specimen Comment: determined by [facility]. It has not been cleared or approved Specimen Comment: by the Food and Drug Administration. 5 This test was developed and its performance characteristics determined by [facility]. It has not been cleared or approved by the Food and Drug Administration. Detection Limit = 1.0 Performed at: - [address] [id number] Clinical Statistics Manager: Clayton Singer MD, Phone: [phone] Performed at: [facility] [address] [id number] Clinical Statistics Manager: Brie Sanchez MD, Phone: [phone] 6 Units are mL/min/1.73 m2 Chronic Kidney Disease Staging per NKF: Stage I & II GFR >=60 Normal to Mildly Decreased Stage III GFR 30-59 Moderately Decreased Stage IV GFR 15-29 Severely Decreased Stage V GFR <15 Very Little GFR Left ESRD GFR <15 on MACHINE ENGINEER 7 VITAMIN B12 NORMAL RANGE NORMAL 247 - 911 PG/ML INDETERMINATE 211 - 246 PG/ML DEFICIENT LESS THAN 211 PG/ML 8 FOLATE NORMAL RANGE NORMAL GREATER THAN 5.4 NG/ML INDETERMINATE 3.4-5.4 NG/ML DEFICIENT LESS THAN 3.4 NG/ML 9 REFERENCE RANGES: <=5.6% NORMAL 5.7-6.4% SUGGESTS IMPAIRED GLUCOSE META BOLISM/PREDIABETIC >= 6.5% ABNORMAL Procedures Date Code Description Status 06/16/2020 65731 EEG Recording Awake & Asleep Com pleted 06/16/2020 96596 EEG Recording Awake & Asleep Com pleted 05/25/2020 17584 Nerve Conduction 11-12 Studies C ompleted 05/25/2020 46796 Needle Electromyography Complete , Five Or More Muscles Studied Completed 05/25/2020 65618 Needle Electromyography Complete , Five Or More Muscles Studied Completed 05/11/2020 27444 Nerve Conduction 11-12 Studies C ompleted 05/11/2020 75742 Needle Electromyography Complete , Five Or More Muscles Studied Completed 05/11/2020 52051 Needle Electromyography Complete , Five Or More Muscles Studied Completed 05/10/2020 61569 MRI Spine Cervical W/O Contrast Completed 05/10/2020 62666 MRI Spine Cervical W/O Contrast Completed 05/10/2020 86669 MRI Brain W/O Contrast Completed 05/10/2020 72335 MRI Brain W/O Contrast Completed Medical Devices Description No Information Available Encounters Type Date Location Provider Dx Diagnosis Office Visit 07/10/2020 8:00a [place] G40.009 Local-rel idio epi w seiz of loc onst,not ntrct,w/o stat epi G40.309 Gen idiopathic epilepsy, not intractable, w/o stat epi M43.02 Spondylolysis, cervical dagmar on M54.81 Occipital neuralgia M54.5 Low back pain G44.229 Chronic tension-type headach e, not intractable G43.009 Migraine w/o aura, not intra ctable, w/o status migrainosus F51.01 Primary insomnia G56.03 Carpal tunnel syndrome, bila teral upper limbs M43.06 Spondylolysis, lumbar region M54.16 Radiculopathy, lumbar region Office Visit 05/05/2020 8:00a [facility] [place] Den[place] G40.309 Gen idiopathic epilepsy, not intractable, w/o stat epi G40.009 Local-rel idio epi w seiz of loc onst,not ntrct,w/o stat epi M54.5 Low back pain M43.06 Spondylolysis, lumbar region M54.16 Radiculopathy, lumbar region M54.2 Cervicalgia M43.02 Spondylolysis, cervical dagmar on M54.81 Occipital neuralgia Assessments Date Code Description Provider 07/10/2020 G40.009 Localization-related (focal) (partial) idiopathic epilepsy and epileptic syndromes with seizures of localized onset, not intractable, without status epilepticus Flavio Downey M.D. 07/10/2020 G40.309 Generalized idiopath ic epilepsy and epileptic syndromes, not intractable, without status epilepticus Flavio Downey M.D. 07/10/2020 M43.02 Spondylolysis, cervical region M celina Downey M.D. 07/10/2020 M54.81 Occipital neuralgia Flavio Downey M.D. 07/10/2020 M54.5 Low back pain Flavio Downey M.D. 07/10/2020 G44.229 Chronic tension-type headache, n ot intractable Flavio Downey M.D. 07/10/2020 G43.009 Migraine without aur a, not intractable, without status migrainosus Flavio Downey M.D. 07/10/2020 F51.01 Primary insomnia Franc Lux 07/10/2020 G56.03 Carpal tunnel syndrome, bilatera l upper limbs Flavio Downey M.D. 07/10/2020 M43.06 Spondylolysis, lumbar region Cathy Downey M.D. 07/10/2020 M54.16 Radiculopathy, lumbar region Cathy Downey M.D. 06/16/2020 G40.89 Other seizures Luz Marina MaiaDarius mcintosh 06/16/2020 G40.89 Other seizures EEG 05/25/2020 M54.89 Other dorsalgia Flavio Downey M.D. 05/25/2020 R20.2 Paresthesia of skin Flavio Downey M.D. 05/25/2020 G60.9 Hereditary and idiopathic neurop athy, unspecified Flavio Downey M.D. 05/25/2020 M54.16 Radiculopathy, lumbar region Cathy Downey M.D. 05/11/2020 M79.601 Pain in right arm Darius Lux 05/11/2020 M79.602 Pain in left arm Franc Lux 05/11/2020 M62.838 Other muscle spasm Brianna Lux 05/11/2020 M54.2 Cervicalgia Flavio Downey M.D. 05/11/2020 M62.9 Disorder of muscle, unspecified Flavio Downey M.D. 05/10/2020 G40.009 Localization-related (focal) (partial) idiopathic epilepsy and epileptic syndromes with seizures of localized onset, not intractable, without status epilepticus Jacqueline Maia, M.D. 05/10/2020 G40.009 Localization-related (focal) (partial) idiopathic epilepsy and epileptic syndromes with seizures of localized onset, not intractable, without status epilepticus MRI 05/10/2020 G40.309 Generalized idiopath ic epilepsy and epileptic syndromes, not intractable, without status epilepticus Jacqueline Maia, M.D. 05/10/2020 G40.309 Generalized idiopath ic epilepsy and epileptic syndromes, not intractable, without status epilepticus MRI 05/10/2020 M54.2 Cervicalgia Jacqueline Maia, M.D . 05/10/2020 M54.2 Cervicalgia MRI 05/10/2020 M43.02 Spondylolysis, cervical region A bdul Maia, M.D. 05/10/2020 M43.02 Spondylolysis, cervical region M RI 05/10/2020 M54.81 Occipital neuralgia Jacqueline Maia, M.D. 05/10/2020 M54.81 Occipital neuralgia MRI 05/05/2020 G40.309 Generalized idiopath ic epilepsy and epileptic syndromes, not intractable, without status epilepticus Flavio Downey M.D. 05/05/2020 G40.009 Localization-related (focal) (partial) idiopathic epilepsy and epileptic syndromes with seizures of localized onset, not intractable, without status epilepticus Flavio Downey M.D. 05/05/2020 M54.5 Low back pain Flavio Downey M.D. 05/05/2020 M43.06 Spondylolysis, lumbar region Cathy Downey M.D. 05/05/2020 M54.16 Radiculopathy, lumbar region Cathy Downey M.D. 05/05/2020 M54.2 Cervicalgia Flavio Downey M.D. 05/05/2020 M43.02 Spondylolysis, cervical region M celina Downey M.D. 05/05/2020 M54.81 Occipital neuralgia Flavio Downey M.D. Plan of Treatment Future Appointment(s):* 12/08/2020 2:45 pm - Flvaio Downey M.D. at Main office - [place] Functional Status Description No Information Available Mental Status Description No Information Available Referrals Refer to Reason for Referral Status Appt Date Flavio Downey M.D. Created [facility] [address] [place] [address] [phone]
--- OUTSIDE RECORDS SUMMARY | 2020-09-29 17:06 | CCD ---
Author Organization Unknown Address [address] [place] [address] Phone [phone] Care Team Providers Care Laboratory Manager Name Role Phone Higinio Arauz Unavailable Unavailable Allergies Code Code System Name Reaction Severity Status Onset 028273 RxNorm Depakote Active 02/06/2020 735942 RxNorm Demerol Active Nsaids (Non- steroidal Anti-inflammatory [...] capsule Completed 05/26 cefdinir 300 mg capsule Active Not avai lable cephalexin 500 mg capsule Completed 2019 chlorhexidine gluconate 0.12 % mouthwash Active Not available Cipro 250 mg tablet Take 1 tablet twice a day by oral route for 3 days. Active Not available Ciprodex 0.3 %-0.1 % ear drops,suspension Completed 05/26/2020 clarithromycin 500 mg tablet Active Not available codeine 10 mg-guaifenesin 100 mg/5 mL oral liquid Completed 05/26/2020 hydrocodone 5 mg-acetaminophen 325 mg tablet Completed 05/26/2020 metoprolol tartrate 100 mg tablet Completed 05/26/2020 Mucinex 600 mg tablet, extended release Completed 05/26/2020 Nasal [place] (oxymetazoline) 0.05 % Completed 05/26/2020 nortriptyline 25 mg capsule Completed 05/08 omeprazole 20 mg capsule,delayed release Active Not available oxycodone-acetaminophen 5 mg-325 mg tablet Active Not available peg-electrolyte solution 420 gram oral solution Active Not available prednisone 10 mg tablet Completed 05/26/20 ProAir [...] Diagnostic Imaging of Breast Active 03/19/2020 History Acute Bacterial Sinusitis Active 05/26/2020 Chronic Depression Active 06/04/2020 Mammography Abnormal Active 06/04/2020 Procedures Date Name Performed by 06/04/2020 MAMMO, Diagnostic, Digital, Bilateral [facility] [address] [place] [address] (Work Place) Notes: totaly hysterectomy 2004 Results Lab Results Date Name Specimen Result Interpretation Description Value Range Status Address 08/14/2020 Urinalysis, Dipstick Urine Normal Appearance, Uri ne clear clear Final [facility]: [address] [facility] Urine Normal Color, Urine brielle yellow Final [facility]: [address] [facility] Urine Normal pH,urine 6.0 units 5.0-9.0 units Fin al [facility]: [address] [facility] Urine Normal Specific [place] Urine Auto 1.004 1 .002-1.035 Final [facility]: [address] [facility] Urine Normal Protein, Urine Auto negative mg/dL n egative mg/dL [facility]: [address] [facility] Urine Normal Glucose, Urine (UA) Auto negat roberto carlos mg/dL negative mg/dL [facility]: [address] [facility] Urine Normal Ketone, Urine Auto negative mg/dL ne gative mg/dL [facility]: [address] [facility] Urine Normal Urobilinogen, Urine Auto 0.2 mg/dL 0 .0-2.0 mg/dL [facility]: [address] [facility] Urine Normal Bilirubin, Urine Auto negative negat roberto carlos [facility]: [address] [facility] Urine Normal Nitrite, Urine Auto positive negativ e [facility]: [address] [facility] Urine High Leukocyte Esterase, Urine Auto trace negative [facility]: [address] [facility] Urine Normal Blood, Urine Blood negative negative [facility]: [address] [facility] Urine Normal WBC, Urine Auto 2 /hpf 0-3 /hpf [facility]: [address] [facility] Urine Normal RBC, Urine Auto 0 /hpf 0-3 /hpf [facility]: [address] [facility] Urine High Bacteria, Urine Auto 1+ negative [facility]: [address] [facility] Urine Normal Squamous Epithelial Cell Ur AU 2 /hp f 0-6 /hpf [facility]: [address] [facility] Urine Normal Mucus, Urine small negative [facility]: [address] [facility] Urine Normal Hyaline Cast, Urine Auto 0 /lpf 0-1 /lpf [facility]: [address] [facility] Past Encounters 08/14/2020 Higinio Arauz MD: [address] [place] [address], Ph. 06/04/2020 Immunization Due; Mammography Abnormal; Low Back Pain; Localization-related Symptomatic Epilepsy Higinio Arauz MD: [address] [place] [address], Ph. 05/26/2020 Acute Bacterial Sinusitis Higinio Arauz MD: [address] [place] [phone], Ph. Social History Tobacco Smoking Status Former Smoker Vaccine List Vaccine Type Influenza, injectable, MDCK, preservativ e free, quadrivalent 04/24/2020 Tdap 06/04/20200.5 mL Plan of Care Reminders Provider Appointments None recorded. Lab None recorded. Referral None recorded. Procedures None recorded. Surgeries None recorded. Imaging None recorded. Vitals 06/04/2020 04:20PM ESTABLISHED [id number] Height Weight BMI Blood Pressure 64 in 207 lbs 16 oz 35.7 kg/m2 119/82 mm[Hg] 05/26/2020 01:20PM SAME DAY 20 Height Weight BMI Blood Pressure 64 in 198 lbs 4 oz 34 kg/m2 163/91 mm[Hg] 03/19/2020 Height Weight Blood Pressure 64 in 196 lbs 102/72 mm[Hg] 02/06/2020 Height Weight Blood Pressure 64 in 190 lbs 122/86 mm[Hg]"
--- OUTSIDE RECORDS SUMMARY | 2020-09-29 17:06 | CCD ---
Author Author [facility] Organization [facility] Address Unknown Phone Unavailable Care Team Providers Care Station Engineer Name Role Phone Evelyn Pitts Unavailable PROBLEMS No Information ALLERGIES Allergen (clinical drug ingredient) Drug/Non Drug Allergy do cumented on EMR Reaction Allergy Type Onset Date Status Sulfamethoxazole([facility] Code:[address]-07) Unknown Drug A llergy Active valproate Valproic Acid([facility] Code:[address]-25) Unknown Drug Leonid rgy Active ENCOUNTERS from 1960 to 2020-08-29 Encounter Location Date Provider Diagnosis [facility] [address] [place] [phone] Aug, Evelyn Pitts Low back pain at multiple sites M54.5 IMMUNIZATIONS No Information SOCIAL HISTORY Tobacco Use: Social History Observation Description Date Details (start date - stop date) Never Smoker Sex Assigned At : Social History Observation Description Sex Assigned At Unknown Tobacco Use: Question Answer Notes Are you a: never smoker REASON FOR REFERRAL No Information VITAL SIGNS Weight 206.2 lbs Aug, Height 64 in Aug, BMI 35.39 kg/m2 Aug, Heart Rate 85 /min Aug, Respiratory Rate 18 /min Aug, Temperature 99.1 degrees Fahrenheit Aug, Oximetry 97 Aug, Blood pressure systolic 139 mm Hg Aug, Blood pressure diastolic 84 mm Hg Aug, MEDICATIONS Medication SIG (Take, Route, Frequency, Duration) Notes Start Da te End Date Status Omeprazole Magnesium 20 MG 1 tablet 30 minutes before morning meal Orally Once a day for 30 day(s) Not-Taking Topiramate 200 MG TAKE ONE TABLET BY MOUTH TWICE A DAY Orally Active Lidocaine 4 % as directed Externally Active Valium 5 MG 1 tab Orally 30 minutes prior to MRI MDD 1 for 1 days Aug, Active Chlorhexidine Gluconate 0.12 % RINSE MOUTH WITH 10ML F OR 1 MINUTE BEFORE BED Mouth/Throat for 30 Active Topamax 200 MG as directed Orally twice daily Active Alprazolam 0.25 MG (Schedule IV Drug) TAKE 1 TA BLET BY MOUTH ONE HOUR BEFORE MRI MAXIMUM DAILY DOSE 1 Oral for 1 Not-Taking Lipitor 40 MG 1 tablet Orally Once a day for 30 day(s) Active Amitriptyline HCl 50 MG 2 tablet at bedtime Orally Once a day Active PROCEDURES No Information RESULTS No Results REASON FOR VISIT BACK PAIN MEDICAL (GENERAL) HISTORY Type Description Date Medical History Generalized Convulsive epilepsy Medical History localization-related epilepsy Medical History Low back pain Medical History Spondylolysis Medical History lumbar radiculopathy Medical History neck pain Medical History Spondylysis of cervical spine Medical History cervico-occipital neuralgia Medical History chronic tension type headache Medical History Migraine without aura, not refractory Medical History Disorders of initiating and maintaining sleep Medical History Bilateral carpal tunnel syndrome Medical History lipomitosis Surgical History oopherectomy 2002 Surgical History Complete hysterectomy 2002 Hospitalization History Hospitalizations from above [facility] Section No Information Health Concerns No Information MEDICAL EQUIPMENT No Information MENTAL STATUS No Information FUNCTIONAL STATUS No Information ASSESSMENTS Encounter Date Diagnosis Assessment Notes Treatment Notes Treatm ent Clinical Notes Aug, Low back pain at multiple sites (ICD-10 - M54.5) We will consider interventional treatment options once MRI is reviewed. 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 PLAN OF TREATMENT Medication Medication Name Sig Start Date Stop Date Valium 5 MG 1 tab Orally 30 minutes prior to MRI MDD 1 for 1 days Aug, Treatment Notes Assessment Notes Clinical Notes Low back pain at multiple sites We will consider inter ventional treatment options once MRI is reviewed. 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 Treatment Notes Test Name Order Date [facility] MRI LS SPINE W/O AND WITH CONT 2020-08-29 Next Appt Details 6 Weeks Reason:review MRI L/S spine Provider Name:Evelyn Pitts, 2020-10-07 02 :45:00 PM, [address] [place] [address], [phone], Follow Up:6 Weeksreview MRI L/S spine Insurance Providers Payer Name Payer Address Payer Phone Insured Name Patient Relati onship to Insured Coverage Start Date Coverage End Date [address] [phone] ELISSA ALVAREZ self
[2020-09-29] MEDS ORDERED: MULT-90 PO (17:07)
--- OUTSIDE RECORDS SUMMARY | 2020-09-29 17:07 | CCD ---
Author Author [facility] Organization [facility] Address Unknown Phone Unavailable Care Team Providers Care Repairer Recreational Vehicle Name Role Phone PETROFF, CHACHO PA Unavailable Unavailable PETROFF, CHACHO PA Unavailable Unavailable PETROFF, CHACHO PA Unavailable Unavailable PETROFF, CHACHO PA Unavailable Unavailable PETROFF, CHACHO PA Unavailable Unavailable PETROFF, CHACHO PA Unavailable Unavailable PETROFF, CHACHO PA Unavailable Unavailable PETROFF, CHACHO PA Unavailable Unavailable Radha Collazo MD Unavailable Unavailable Radha Collazo MD Unavailable Unavailable Radha Collazo MD Unavailable Unavailable Radha Collazo MD Unavailable Unavailable Radha Collazo MD Unavailable Unavailable Radha Collazo MD Unavailable Unavailable Radha Collazo MD Unavailable Unavailable Radha Collazo MD Unavailable Unavailable Radha Collazo MD Unavailable Unavailable Radha Collazo MD Unavailable Unavailable Radha Collazo MD Unavailable Unavailable Radha Collazo MD Unavailable Unavailable Radha Collazo MD Unavailable Unavailable Radha Collazo MD Unavailable Unavailable Radha Collazo MD Unavailable Unavailable Radha Collazo MD Unavailable Unavailable Radha Collazo MD Unavailable Unavailable Radha Collazo MD Unavailable Unavailable Radha Collazo MD Unavailable Unavailable Radha Collazo MD Unavailable Unavailable Radha Collazo MD Unavailable Unavailable Radha Collazo MD Unavailable Unavailable Radha Collazo MD Unavailable Unavailable Radha Collazo MD Unavailable Unavailable Radha Collazo MD Unavailable Unavailable Radha Collazo MD Unavailable Unavailable Radha Collazo MD Unavailable Unavailable Radha Collazo MD Unavailable Unavailable Radha Collazo MD Unavailable Unavailable Radha Collazo MD Unavailable Unavailable Radha Collazo MD Unavailable Unavailable Radha Collazo MD Unavailable Unavailable Radha Collazo MD Unavailable Unavailable Radha Collazo MD Unavailable Unavailable Radha Collazo MD Unavailable Unavailable Radha Collazo MD Unavailable Unavailable Radha Collazo MD Unavailable Unavailable Radha Collazo MD Unavailable Unavailable Radha Collazo MD Unavailable Unavailable Radha Collazo MD Unavailable Unavailable Radha Collazo MD Unavailable Unavailable Radha Collazo MD Unavailable Unavailable Radha Collazo MD Unavailable Unavailable Radha Collazo MD Unavailable Unavailable Radha Collazo MD Unavailable Unavailable Radha Collazo MD Unavailable Unavailable Radha Collazo MD Unavailable Unavailable Radha Collazo MD Unavailable Unavailable Radha Collazo MD Unavailable Unavailable Radha Collazo MD Unavailable Unavailable Radha Collazo MD Unavailable Unavailable Radha Collazo MD Unavailable Unavailable Radha Collazo MD Unavailable Unavailable Radha Collazo MD Unavailable Unavailable Radha Collazo MD Unavailable Unavailable Radha Collazo MD Unavailable Unavailable Radha Collazo MD Unavailable Unavailable Radha Collazo MD Unavailable Unavailable Radha Collazo MD Unavailable Unavailable Radha Collazo MD Unavailable Unavailable Radha Collazo MD Unavailable Unavailable Radha Collazo MD Unavailable Unavailable Radha Collazo MD Unavailable Unavailable Radha Collazo MD Unavailable Unavailable Radha Collazo MD Unavailable Unavailable Radha Collaoz MD Unavailable Unavailable Radha Collazo MD Unavailable Unavailable Radha Collazo MD Unavailable Unavailable Radha Collazo MD Unavailable Unavailable Radha Collazo MD Unavailable Unavailable Radha Collzao MD Unavailable Unavailable Radha Collazo MD Unavailable Unavailable Radha Colalzo MD Unavailable Unavailable Radha Collazo MD Unavailable Unavailable Radha Collazo MD Unavailable Unavailable Radha Collazo MD Unavailable Unavailable Radha Collazo MD Unavailable Unavailable Radha Collazo MD Unavailable Unavailable Radha Collazo MD Unavailable Unavailable Radha Collazo MD Unavailable Unavailable Radha Collazo MD Unavailable Unavailable Radha Collazo MD Unavailable Unavailable Radha Collazo MD Unavailable Unavailable Radha Collazo MD Unavailable Unavailable Radha Collazo MD Unavailable Unavailable Radha Collazo MD Unavailable Unavailable Radha Collazo MD Unavailable Unavailable Radha Collazo MD Unavailable Unavailable Radha Collazo MD Unavailable Unavailable Fish, Reny Hallie MPAS, PA-C Unavailable Unavailabl e Fish, Reny Hallie MPAS, PA-C Unavailable Unavailabl e Fish, Reny Hallie MPAS, PA-C Unavailable Unavailabl e Fish, Reny Hallie MPAS, PA-C Unavailable Unavailabl e Fish, Reny Hallie MPAS, PA-C Unavailable Unavailabl e Fish, Reny Hallie MPAS, PA-C Unavailable Unavailabl e Fish, Reny Hallie MPAS, PA-C Unavailable Unavailabl e Fish, [facility], PA-C Unavailable Unavailabl e Fish, [facility], PA-C Unavailable Unavailabl e Fish, [facility], PA-C Unavailable Unavailabl e Fish, [facility], PA-C Unavailable Unavailabl e Fish, [facility], PA-C Unavailable Unavailabl e Fish, [facility], PA-C Unavailable Unavailabl e Fish, [facility], PA-C Unavailable Unavailabl e Fish, [facility], PA-C Unavailable Unavailabl e Fish, [facility], PA-C Unavailable Unavailabl e Fish, [facility], PA-C Unavailable Unavailabl e Fish, [facility], PA-C Unavailable Unavailabl e Fish, [facility], PA-C Unavailable Unavailabl e Fish, [facility], PA-C Unavailable Unavailabl e Fish, [facility], PA-C Unavailable Unavailabl e Fish, [facility], PA-C Unavailable Unavailabl e Fish, [facility], PA-C Unavailable Unavailabl e Fish, [facility], PA-C Unavailable Unavailabl e Fish, [facility], PA-C Unavailable Unavailabl e Fish, [facility], PA-C Unavailable Unavailabl e Fish, [facility], PA-C Unavailable Unavailabl e Fish, [facility], PA-C Unavailable Unavailabl e Fish, [facility], PA-C Unavailable Unavailabl e Fish, [facility], PA-C Unavailable Unavailabl e Fish, [facility], PA-C Unavailable Unavailabl e Fish, [facility], PA-C Unavailable Unavailabl e Fish, [facility], PA-C Unavailable Unavailabl e Fish, [facility], PA-C Unavailable Unavailabl e Radha Collazo MD Unavailable Unavailable Radha Collazo MD Unavailable Unavailable Radha Collazo MD Unavailable Unavailable Radha Collazo MD Unavailable Unavailable Radha Collazo MD Unavailable Unavailable Radha Collazo MD Unavailable Unavailable Radha Collazo MD Unavailable Unavailable Radha Collazo MD Unavailable Unavailable Radha Collazo MD Unavailable Unavailable Radha Collazo MD Unavailable Unavailable Radha Collazo MD Unavailable Unavailable Radha Collazo MD Unavailable Unavailable Radha Collazo MD Unavailable Unavailable Radha Collazo MD Unavailable Unavailable Radha Collazo MD Unavailable Unavailable Radha Collazo MD Unavailable Unavailable Radha Collazo MD Unavailable Unavailable Radha Collazo MD Unavailable Unavailable Radha Collazo MD Unavailable Unavailable Radha Collazo MD Unavailable Unavailable Radha Collazo MD Unavailable Unavailable Radha Collazo MD Unavailable Unavailable Radha Collazo MD Unavailable Unavailable Radha Collazo MD Unavailable Unavailable Radha Collazo MD Unavailable Unavailable Radha Collazo MD Unavailable Unavailable Radha Collazo MD Unavailable Unavailable Radha Collazo MD Unavailable Unavailable Radha Collazo MD Unavailable Unavailable Radha Collazo MD Unavailable Unavailable Radha Collazo MD Unavailable Unavailable Radha Collazo MD Unavailable Unavailable Radha Collazo MD Unavailable Unavailable Radha Collazo MD Unavailable Unavailable Radha Collazo MD Unavailable Unavailable Radha Collazo MD Unavailable Unavailable Radha Collazo MD Unavailable Unavailable Radha Collazo MD Unavailable Unavailable Radha Collazo MD Unavailable Unavailable Radha Collazo MD Unavailable Unavailable Radha Collazo MD Unavailable Unavailable Radha Collazo MD Unavailable Unavailable Radha Collazo MD Unavailable Unavailable Radha Collazo MD Unavailable Unavailable Radha Collazo MD Unavailable Unavailable Radha Collazo MD Unavailable Unavailable Radha Collazo MD Unavailable Unavailable Radha Collazo MD Unavailable Unavailable Radha Collazo MD Unavailable Unavailable Radha Collazo MD Unavailable Unavailable Radha Collazo MD Unavailable Unavailable Radha Collazo MD Unavailable Unavailable Radha Collazo MD Unavailable Unavailable Radha Collazo MD Unavailable Unavailable Radha Collazo MD Unavailable Unavailable Radha Collazo MD Unavailable Unavailable Radha Collazo MD Unavailable Unavailable Radha Collazo MD Unavailable Unavailable Radha Collazo MD Unavailable Unavailable Radha Collazo MD Unavailable Unavailable Radha Collazo MD Unavailable Unavailable Radha Collazo MD Unavailable Unavailable Radha Collazo MD Unavailable Unavailable Radha Collazo MD Unavailable Unavailable Radha Collazo MD Unavailable Unavailable Radha Collazo MD Unavailable Unavailable Radha Collazo MD Unavailable Unavailable Radha Collazo MD Unavailable Unavailable Radha Collazo MD Unavailable Unavailable Radha Collazo MD Unavailable Unavailable Radha Collazo MD Unavailable Unavailable Radha Collazo MD Unavailable Unavailable Radha Collazo MD Unavailable Unavailable Radha Collazo MD Unavailable Unavailable Radha Collazo MD Unavailable Unavailable Radha Collazo MD Unavailable Unavailable Radha Collazo MD Unavailable Unavailable Radha Collazo MD Unavailable Unavailable Radha Collazo MD Unavailable Unavailable Radha Collazo MD Unavailable Unavailable Radha Collazo MD Unavailable Unavailable Radha Collazo MD Unavailable Unavailable Radha Collazo MD Unavailable Unavailable Radha Collazo MD Unavailable Unavailable Radha Collazo MD Unavailable Unavailable Radha Collazo MD Unavailable Unavailable Radha Collazo MD Unavailable Unavailable Radha Collazo MD Unavailable Unavailable Radha Collazo MD Unavailable Unavailable TURRIN, ADRIEL Unavailable Unavailable TURRIN, ADRIEL Unavailable Unavailable TURRIN, ADRIEL Unavailable Unavailable TURRIN, ADRIEL Unavailable Unavailable Radha Collazo MD Unavailable Unavailable Radha Collazo MD Unavailable Unavailable Radha Collazo MD Unavailable Unavailable Radha Collazo MD Unavailable Unavailable Radha Collazo MD Unavailable Unavailable Radha Collazo MD Unavailable Unavailable Radha Collazo MD Unavailable Unavailable Radha Collazo MD Unavailable Unavailable Radha Collazo MD Unavailable Unavailable Radha Collazo MD Unavailable Unavailable Radha Collazo MD Unavailable Unavailable Radha Collazo MD Unavailable Unavailable Radha Collazo MD Unavailable Unavailable Radha Collazo MD Unavailable Unavailable Radha Collazo MD Unavailable Unavailable Radha Collazo MD Unavailable Unavailable Radha Collazo MD Unavailable Unavailable Radha Collazo MD Unavailable Unavailable Radha Collazo MD Unavailable Unavailable Radha Collazo MD Unavailable Unavailable Radha Collazo MD Unavailable Unavailable Radha Collazo MD Unavailable Unavailable Radha Collazo MD Unavailable Unavailable Radha Collazo MD Unavailable Unavailable Radha Collazo MD Unavailable Unavailable Radha Collazo MD Unavailable Unavailable Radha Collazo MD Unavailable Unavailable Radha Collazo MD Unavailable Unavailable Radha Collazo MD Unavailable Unavailable Radha Collazo MD Unavailable Unavailable Radha Collazo MD Unavailable Unavailable Radha Collazo MD Unavailable Unavailable Radha Collazo MD Unavailable Unavailable Radha Collazo MD Unavailable Unavailable Radha Collazo MD Unavailable Unavailable Radha Collazo MD Unavailable Unavailable Radha Collazo MD Unavailable Unavailable Radha Clolazo MD Unavailable Unavailable Radha Collazo MD Unavailable Unavailable Radha Collazo MD Unavailable Unavailable Radha Collazo MD Unavailable Unavailable Radha Collazo MD Unavailable Unavailable Radha Collazo MD Unavailable Unavailable Radha Collazo MD Unavailable Unavailable Radha Collazo MD Unavailable Unavailable Radha Collazo MD Unavailable Unavailable Radha Collazo MD Unavailable Unavailable Radha Collazo MD Unavailable Unavailable Radha Collazo MD Unavailable Unavailable Radha Collazo MD Unavailable Unavailable Radha Collazo MD Unavailable Unavailable Radha Collazo MD Unavailable Unavailable Radha Collazo MD Unavailable Unavailable Radha Collazo MD Unavailable Unavailable Radha Collazo MD Unavailable Unavailable Radha Collazo MD Unavailable Unavailable Radha Collazo MD Unavailable Unavailable Radha Collazo MD Unavailable Unavailable Radha Collazo MD Unavailable Unavailable Radha Collazo MD Unavailable Unavailable Radha Collazo MD Unavailable Unavailable CollazoRadha MD Unavailable Unavailable CollazoRadha MD Unavailable Unavailable CollazoRadha MD Unavailable Unavailable Radha Collazo MD Unavailable Unavailable Radha Collazo MD Unavailable Unavailable CollazoRadha MD Unavailable Unavailable Radha Collazo MD Unavailable Unavailable Radha Collazo MD Unavailable Unavailable CollazoRadha MD Unavailable Unavailable Collazo, Radha Sylvester MD Unavailable Unavailable CollazoRadha MD Unavailable Unavailable CollazoRadha MD Unavailable Unavailable CollazoRadha MD Unavailable Unavailable Radha Collazo MD Unavailable Unavailable CollazoRadha MD Unavailable Unavailable CollazoRadha MD Unavailable Unavailable Radha Collazo MD Unavailable Unavailable Radha Collazo MD Unavailable Unavailable CollazoRadha MD Unavailable Unavailable Radha Collazo MD Unavailable Unavailable Radha Collazo MD Unavailable Unavailable Radha Collazo MD Unavailable Unavailable Radha Collazo MD Unavailable Unavailable Radha Collazo MD Unavailable Unavailable Radha Collazo MD Unavailable Unavailable Radha Collazo MD Unavailable Unavailable Radha Collazo MD Unavailable Unavailable Radha Collazo MD Unavailable Unavailable Flavio Downey MD Unavailable Unavailable Flavio Downey MD Unavailable Unavailable Flavio Downey MD Unavailable Unavailable Flavio Downey MD Unavailable Unavailable Flavio Downey MD Unavailable Unavailable Flavio Downey MD Unavailable Unavailable Flavio Downey MD Unavailable Unavailable Flavio Downey MD Unavailable Unavailable Flavio Downey MD Unavailable Unavailable Flavio Downey MD Unavailable Unavailable Flavio Downey MD Unavailable Unavailable Flavio Downey MD Unavailable Unavailable Flavio Downey MD Unavailable Unavailable Flavio Downey MD Unavailable Unavailable Flavio Downey MD Unavailable Unavailable Flavio Downey MD Unavailable Unavailable Flavio Downey MD Unavailable Unavailable Flavio Downey MD Unavailable Unavailable Flavio Downey MD Unavailable Unavailable Flavio Downey MD Unavailable Unavailable Flavio Downey MD Unavailable Unavailable Flavio Downey MD Unavailable Unavailable Flavio Downey MD Unavailable Unavailable Flavio Downey MD Unavailable Unavailable Flavio Downey MD Unavailable Unavailable Flavio Downey MD Unavailable Unavailable Flavio Downey MD Unavailable Unavailable Flavio Downey MD Unavailable Unavailable Flavio Downey MD Unavailable Unavailable Flavio Downey MD Unavailable Unavailable Flavio Downey MD Unavailable Unavailable Flavio Downey MD Unavailable Unavailable Flavio Downey MD Unavailable Unavailable Flavio Downey MD Unavailable Unavailable Flavio Downey MD Unavailable Unavailable Flavio Downey MD Unavailable Unavailable Flavio Downey MD Unavailable Unavailable Flavio Downey MD Unavailable Unavailable Flavio Downey MD Unavailable Unavailable Flavio Downey MD Unavailable Unavailable Ali, Flavio MD Unavailable Unavailable Ali, Flavio MD Unavailable Unavailable Ali, Flavio MD Unavailable Unavailable Ali, Flavio MD Unavailable Unavailable Ali, Flavio MD Unavailable Unavailable Ali, Flavio MD Unavailable Unavailable Ali, Flavio MD Unavailable Unavailable Ali, Flavio MD Unavailable Unavailable Ali, Flavio MD Unavailable Unavailable Re-disclosure Warning The records that you are about to access may contain information from federally-assisted alcohol or drug abuse programs. If such information is present, then the following federally mandated warning applies: This information has been disclosed to you from records protected by federal confidentiality rules (42 CFR part 2). The federal rules prohibit you from making any further disclosure of this information unless further disclosure is expressly permitted by the written consent of the person to whom it pertains or as otherwise permitted by 42 CFR part 2. A general authorization for the release of medical or other information is NOT sufficient for this purpose. The Federal rules restrict any use of the information to criminally investigate or prosecute any alcohol or drug abuse patient.The records that you are about to access may contain highly sensitive health information, the redisclosure of which is protected by Article 27-F of the [facility] Public Health law. If you continue you may have access to information: Regarding HIV / AIDS; Provided by facilities licensed or operated by the [facility] Office of Mental Health; or Provided by the [facility] Office for People With Developmental Disabilities. If such information is present, then the following [facility] mandated warning applies: This information has been disclosed to you from confidential records which are protected by state law. State law prohibits you from making any further disclosure of this information without the specific written consent of the person to whom it pertains, or as otherwise permitted by law. Any unauthorized further disclosure in violation of state law may result in a fine or half-way sentence or both. A general authorization for the release of medical or other information is NOT sufficient authorization for further disc losure. Allergies and Adverse Reactions Type Description Substance Reaction Status Data Source(s ) Drug allergy SEPT [facility] Allergy to substance Allergy to substance Depakote [facility] ([facility]) Allergy to substance Allergy to substance Depakote [facility] ([facility]) Allergy to substance Allergy to substance Depakote [facility] ([facility]) Drug allergy DEPAKOTE DEPAKOTE [facility] Drug allergy DEMEROL (MEPERIDINE HCL) DEMEROL (MEPERIDINE HCL) [facility] Food allergy SULFA ANTIBIOTICS SULFA ANTIBIOTICS [facility] Encounters Encounter Providers Location Date Indications Data Source(s ) Higinio Collazo MD: [address] [place] [address] [phone], Ph. Attender: Higinio Collazo MD [facility] Medical 09/17/2020 12:00:00 AM EST [facility] ([facility]) Outpatient [id number] [facility] [id number] 08/26/2020 12:00:00 AM EST eCW1 ([facility]) Higinio Collazo MD: [address] [place] [address] [phone], Ph. Attender: Higinio Collazo MD [facility] Medical 08/14/2020 12:00:00 AM EST [facility] ([facility]) Higinio Collazo MD: [address] [place] [address] [phone], Ph. Attender: Higinio Collazo MD [facility] Medical 08/14/2020 12:00:00 AM EST [facility] ([facility]) Outpatient Attender: Flavio Downey MD Main office - [place] 07/10/2020 07:00:00 AM EST MED[facility] ([facility]) Higinio Collazo MD: [address] [place] [address] [phone], Ph. Attender: Higinio Collazo MD [facility] Medical 06/04/2020 12:00:00 AM EDT [facility] ([facility]) Higinio Collazo MD: [address] [place] [address] [phone], Ph. Attender: Higinio Collazo MD [facility] Medical 06/04/2020 12:00:00 AM EDT [facility] ([facility]) Higinio Collazo MD: [address] [place] [address] [phone], Ph. Attender: Higinio Collazo MD [facility] Medical 06/04/2020 12:00:00 AM EDT [facility] ([facility]) Outpatient Attender: Higinio Collazo MD 06/02/2020 02:24:00 PM EDT [facility] Outpatient Attender: Higinio Collazo MD 05/26/2020 01:08:01 PM EDT [facility] Higinio Collazo MD: [address] [place] [address] [phone], Ph. Attender: Higinio Collazo MD [facility] Medical 05/26/2020 12:00:00 AM EDT [facility] ([facility]) Higinio Collazo MD: [address] [place] [address] [phone], Ph. Attender: Higinio Collazo MD [facility] Medical 05/26/2020 12:00:00 AM EDT [facility] ([facility]) Higinio Collazo MD: [address] [place] [address] [phone], Ph. Attender: Higinio Collazo MD [facility] Medical 05/26/2020 12:00:00 AM EDT [facility] ([facility]) Outpatient Attender: Higinio Collazo MD 05/22/2020 12:38:02 PM EDT [facility] Emergency Attender: ADRIEL BRICEÑOConsultant: Higinio Collazo MD 05/21/2020 02:58:00 PM EDT - 05/21/2020 03:51:[address] [facility] Patient discharged. Outpatient Attender: Higinio Collazo MD 05/05/2020 01:30:04 PM EDT [facility] Outpatient Attender: Higinio Collazo MD 05/05/2020 01:29:59 PM EDT [facility] Outpatient Attender: Higinio Collazo MD 05/05/2020 01:21:03 PM EDT [facility] Outpatient Attender: Higinio Collazo MD 05/05/2020 01:21:02 PM EDT [facility] Outpatient Attender: Flavio Downey MD Main office - [place] 05/05/2020 08:00:00 AM EDT MED[facility] ([facility]) Outpatient Attender: Higinio Collazo MD FP 04/28/2020 02:06:03 PM EDT [facility] Outpatient Attender: Higinio Collazo MD FP 04/28/2020 02:05:01 PM EDT [facility] Outpatient Attender: Higinio Collazo MD FP 04/28/2020 12:36:01 PM EDT [facility] Outpatient Attender: Higinio Collazo MD FP 04/28/2020 12:35:05 PM EDT [facility] Outpatient Attender: Higinio Collazo MD FP 04/27/2020 08:38:03 AM EDT [facility] Outpatient Attender: Higinio Collazo MD FP 04/27/2020 08:38:02 AM EDT [facility] Outpatient Attender: Higinio Collazo MD FP 04/17/2020 01:12:00 PM EDT [facility] Outpatient Attender: Higinio Collazo MD FP 04/17/2020 12:00:47 AM EDT [facility] Outpatient Attender: Higinio Collazo MD FP 04/16/2020 03:00:10 PM EDT [facility] Outpatient Attender: Higinio Collazo MD FP 04/16/2020 02:46:31 PM EDT [facility] Outpatient Attender: Higinio Collazo MD FP 03/20/2020 03:34:01 PM EDT [facility] Outpatient Attender: Higinio Collaoz MD FP 03/19/2020 03:06:00 PM EDT [facility] Outpatient Attender: Higinio Collazo MD FP 03/19/2020 09:38:01 AM EDT [facility] Outpatient Attender: Higinio Collazo MD FP 03/19/2020 09:16:01 AM EDT [facility] Outpatient Attender: Higinio Collazo MD FP 03/19/2020 08:55:01 AM EDT [facility] Outpatient Attender: Higinio Collazo MD FP 03/11/2020 11:31:01 AM EDT [facility] Outpatient Attender: Higinio Collazo MD FP 03/09/2020 04:18:01 PM EDT [facility] Outpatient Attender: Higinio Collazo MD FP 03/09/2020 02:05:00 PM EDT [facility] Outpatient Attender: Higinio Collazo MD FP 03/09/2020 02:04:02 PM EDT [facility] Outpatient Attender: Higinio Collazo MD FP 03/09/2020 02:03:01 PM EDT [facility] Outpatient Attender: Higinio Collazo MD FP 02/24/2020 04:50:00 PM EDT [facility] Outpatient Attender: Higinio Collazo MD FP 02/20/2020 03:42:01 PM EDT [facility] Outpatient Attender: [facility] 02/17/2020 02:15:00 PM EDT [facility] ([facility]) Outpatient Attender: Higinio Collazo MD FP 02/10/2020 07:39:01 AM EDT [facility] Outpatient Attender: Higinio Collazo MD FP 02/07/2020 12:00:11 AM EDT [facility] Outpatient Attender: Higinio Collazo MD FP 02/06/2020 09:32:02 AM EDT [facility] Outpatient Attender: Higinio Collazo MD FP 02/06/2020 09:31:00 AM EDT [facility] Outpatient Attender: Higinio Collazo MD FP 02/06/2020 08:24:00 AM EDT [facility] Outpatient Attender: Higinio Collazo MD FP 02/06/2020 08:22:01 AM EDT [facility] Outpatient Attender: Higinio Collazo MD FP 02/06/2020 08:21:00 AM EDT [facility] Outpatient Attender: Higinio Collazo MD FP 02/06/2020 08:20:00 AM EDT [facility] Outpatient Attender: Higinio Collazo MD FP 02/06/2020 08:10:00 AM EDT [facility] Outpatient Attender: Higinio Collazo MD FP 02/05/2020 09:40:01 AM EDT [facility] Outpatient Attender: TOPHER PattenC Physical Therapy 01/22/2020 09:30:00 AM EDT [facility] ([facility]) Outpatient Attender: Higinio Collazo MD FP 01/21/2020 04:16:01 PM EDT [facility] Outpatient Attender: Higinio Collazo MD FP 01/14/2020 08:04:12 PM EDT [facility] OFFICE OUTPATIENT NEW 30 MINUTES Attender: JUAREZ Patten-C Physical Therapy 01/13/2020 11:00:00 AM EDT [facility] ([facility] ) Emergency Attender: CHACHO PIZARRO 2019 02:57:00 PM EDT - 01/12/2020 05:00:00 PM EDT [facility] Patient discharged. Outpatient Attender: Higinio TOVAR 01/10/2020 12:02:16 AM EDT [facility] Outpatient Attender: Higinio TOVAR 01/09/2020 03:03:00 PM EDT [facility] Immunizations Vaccine Date Status Description Data Source(s) Tdap 06/04/2020 05:14:00 PM EDT completed 06/04/2020 0.5 mL [place] ([facility]) Tdap 06/04/2020 05:14:00 PM EDT completed 06/04/2020 0.5 mL [facility] ([facility]) Tdap 06/04/2020 05:14:00 PM EDT completed 06/04/2020 0.5 mL [facility] ([facility]) Influenza, injectable, MDCK, preservative free, ciro valent 04/24/2020 12:00:00 AM EDT completed 04/24/2020 [place] ([facility]) Influenza, injectable, MDCK, preservative free, ciro valent 04/24/2020 12:00:00 AM EDT completed 04/24/2020 [place] ([facility]) INFLUENZA VIRUS VACCINE QUADRIVALENT 2019-21 (6 MOS AN D UP) 04/24/2020 12:00:00 AM EDT completed [facility] Medications Medication Brand Name Start Date Product Form Dose Route Admi nistrative Instructions Pharmacy Instructions Status Indications Reaction Description Data Source(s) Diazepam 5 MG Oral Tablet [Valium] Valium 5 MG Valium 5 MG 08/27/2020 12:00:00 AM EST active Valium 5 MG eCW1 ([facility]) Alprazolam 0.5 MG Oral Tablet Alprazolam 05/05/2020 12:00:00 AM EDT ORAL active [facility] ([facility] ) topiramate 200 MG Oral Tablet Topiramate 05/05/2020 12:00:00 AM EDT ORAL active [facility] ([facility] ) Amitriptyline Hydrochloride 50 MG Oral Tablet Amitriptyline HCL 05/05/2020 12:00:00 AM EDT ORAL active M [facility]ENT ([facility]) Cephalexin 500 MG Oral Capsule CEPHALEXIN 04/28/2020 12:00:00 AM EDT capsule 21 TAKE ONE CAPSULE BY MOUTH THREE TIMES A DAY TAKE ONE C APSULE BY MOUTH THREE TIMES A DAY SOLD: 04/30/2020 [facility] 0.12 % 04/17/2020 12:00:00 AM EDT mouthwash 473 RINSE MOUTH WITH 10ML FOR 1 MINUTE BEFORE BED RINSE MOUTH WITH 10ML FOR 1 MINUTE BEFORE BED SOLD: [facility] Alprazolam 0.25 MG Oral Tablet ALPRAZOLAM 03/24/2020 12:00:00 AM EDT t ablet 1 TAKE 1 TABLET BY MOUTH ONE HOUR BEFORE MRI MAXIMUM DAILY DOSE = 1 TAKE 1 TABLET BY MOUTH ONE HOUR BEFORE MRI MAXIMUM DAILY DOSE = 1 SOLD: 03/25/2020 [facility] 50 mg 03/20/2020 12:00:00 AM EDT tablet 60 TAKE ONE TABLET BY MOUTH TWICE A DAY TAKE ONE TABLET BY MOUTH TWICE A DAY SOLD: 04/24/2020 [facility] 50 mg 03/20/2020 12:00:00 AM EDT tablet 60 TAKE ONE TABLET BY MOUTH TWICE A DAY TAKE ONE TABLET BY MOUTH TWICE A DAY SOLD: 03/20/2020 [facility] 100 mg 03/20/2020 12:00:00 AM EDT tablet 60 TAKE ONE TABLET BY MOUTH TWICE A DAY TAKE ONE TABLET BY MOUTH TWICE A DAY SOLD: 04/24/2020 [facility] 100 mg 03/20/2020 12:00:00 AM EDT tablet 60 TAKE ONE TABLET BY MOUTH TWICE A DAY TAKE ONE TABLET BY MOUTH TWICE A DAY SOLD: 03/20/2020 [facility] 5-325 mg 01/13/2020 12:00:00 AM EDT tablet 6 TAKE ONE TABLET BY MOUTH EVERY 4 HOURS NEEDED FOR PAIN MAXIMUM DAILY DOSE = 12 TAKE ONE TABLET BY MOUTH EVERY 4 HOURS NEEDED FOR PAIN MAXIMUM DAILY DOSE = 12 SOLD: 01/13/2020 [facility] atorvastatin 20 MG Oral Tablet atorvastatin 20 mg tabl et atorvastatin 20 mg tablet completed atorvastatin 20 MG Oral Tablet [facility] ([facility]) atorvastatin 20 MG Oral Tablet atorvastatin 20 mg tabl et atorvastatin 20 mg tablet completed [facility] Ciprofloxacin 3 MG/ML / Dexamethasone 1 MG/ML Otic Suspension [Ciprodex] Ciprodex 0.3 %-0.1 % ear drops,suspension Ciprodex 0.3 %-0.1 % ear drops,suspension completed ciprofloxacin 3 MG/ML / dexamethasone 1 MG/ML Otic Suspension [Ciprodex] [place] ([facility]) Cephalexin 500 MG Oral Capsule cephalexin 500 mg capsu le cephalexin 500 mg capsule completed cephalexin 500 MG Oral Capsule [place] ([facility]) Clarithromycin 500 MG Oral Tablet clarithromycin 500 m g tablet clarithromycin 500 mg tablet completed clarithr omycin 500 MG Oral Tablet [place] ([facility]) Alprazolam 0.5 MG Oral Tablet alprazolam 0.5 mg tablet alpra zolam 0.5 mg tablet completed alprazolam 0.5 MG Oral Tablet [place] ([facility]) atorvastatin 10 MG Oral Tablet atorvastatin 10 mg tabl et atorvastatin 10 mg tablet completed atorvastatin 10 MG Oral Tablet [place] ([facility]) 12 HR Guaifenesin 600 MG Extended Releas e Oral Tablet [Mucinex] Mucinex 600 mg tablet, extended release Mucinex 600 mg tablet, extended release completed 12 HR guaifenesin 600 MG Extende d Release Oral Tablet [Mucinex] [place] ([facility]) Acetaminophen 325 MG / Hydrocodone Juve trate 5 MG Oral Tablet hydrocodone 5 mg- acetaminophen 325 mg tablet hydrocodone 5 mg-acetaminophen 325 mg tablet completed acetaminophen 325 MG / hydrocodone bitartrate 5 MG Oral Tablet [place] ([facility]) Nortriptyline 25 MG Oral Capsule nortriptyline 25 mg c apsule nortriptyline 25 mg capsule completed nortriptyline 25 MG Oral Capsule [place] ([facility]) cefdinir 300 MG Oral Capsule cefdinir 300 mg capsule cefdinir 30 0 mg capsule completed cefdinir 300 M G Oral Capsule [place] ([facility]) Metoprolol Tartrate 100 MG Oral Tablet metoprolol tart rate 100 mg tablet metoprolol tartrate 100 mg tablet comp leted metoprolol tartrate 100 MG Oral Tablet [place] ([facility]) Oxymetazoline hydrochloride 0.5 MG/ML Na one[place]ichard Nasal Prichard (oxymetazoline) 0.05 % Nasal [place]ichard (oxymetazoline) 0.05 % co mpleted oxymetazoline hydrochloride 0.5 MG/ML Nasal Prichard [place] ([facility]) topiramate 50 MG Oral Tablet topiramate 50 mg tablet topiramate 50 mg tablet completed topiramate 50 MG Oral Tablet [place] ([facility]) Oxymetazoline hydrochloride 0.5 MG/ML [place] Nasal [place]ichard (oxymetazoline) 0.05 % Nasal [place] (oxymetazoline) 0.05 % co mpleted oxymetazoline hydrochloride 0.5 MG/ML Nasal [place]ard [place] ([facility]) Alprazolam 0.25 MG Oral Tablet alprazolam 0.25 mg tabl et alprazolam 0.25 mg tablet completed alprazolam 0.25 MG Oral Tablet [place] ([facility]) Metoprolol Tartrate 100 MG Oral Tablet metoprolol tart rate 100 mg tablet metoprolol tartrate 100 mg tablet comp leted metoprolol tartrate 100 MG Oral Tablet [place] ([facility]) Codeine Phosphate 2 MG/ML / Guaifenesin 20 MG/ML Oral Solution codeine 10 mg- guaifenesin 100 mg/5 mL oral liquid codeine 10 mg-guaifenesin 100 mg/5 mL or al liquid completed codeine phosphate 2 MG/ML / guaifenesin 20 MG/ML Oral Solution [place] ([facility]) Alprazolam 0.25 MG Oral Tablet alprazolam 0.25 mg tabl et alprazolam 0.25 mg tablet completed alprazolam 0.25 MG Oral Tablet [place] ([facility]) Cephalexin 500 MG Oral Capsule cephalexin 500 mg capsu le cephalexin 500 mg capsule completed cephalexin 500 MG Oral Capsule [place] ([facility]) Alprazolam 0.5 MG Oral Tablet alprazolam 0.5 mg tablet alpra zolam 0.5 mg tablet completed alprazolam 0.5 MG Oral Tablet [place] ([facility]) Azithromycin 250 MG Oral Tablet azithromycin 250 mg ta blet azithromycin 250 mg tablet completed azithromycin 25 0 MG Oral Tablet [place] ([facility]) Aspirin 81 MG Delayed Release Oral Tablet aspirin 81 m g tablet,delayed release aspirin 81 mg tablet,delayed release c ompleted aspirin 81 MG Delayed Release Oral Tablet [place] ([facility]) Alprazolam 0.25 MG Oral Tablet alprazolam 0.25 mg tabl et alprazolam 0.25 mg tablet completed alprazolam 0.25 MG Oral Tablet [place] ([facility]) Nortriptyline 25 MG Oral Capsule nortriptyline 25 mg c apsule nortriptyline 25 mg capsule completed nortriptyline 25 MG Oral Capsule [place] ([facility]) topiramate 100 MG Oral Tablet topiramate 100 mg tablet topir amate 100 mg tablet completed topiramate 100 MG Oral Tablet [place] ([facility]) topiramate 100 MG Oral Tablet topiramate 100 mg tablet topir amate 100 mg tablet completed topiramate 100 MG Oral Tablet [place] ([facility]) Ciprofloxacin 3 MG/ML / Dexamethasone 1 MG/ML Otic Suspension [Ciprodex] Ciprodex 0.3 %-0.1 % ear drops,suspension Ciprodex 0.3 %-0.1 % ear drops,suspension completed ciprofloxacin 3 MG/ML / dexamethasone 1 MG/ML Otic Suspension [Ciprodex] [place] ([facility]) Afluria Quad 6615-2430 60 mcg (15 mcg x 4)/0.5 mL intramuscular susp. 175519 completed Afluria Quad 60 mcg (15 mcg x 4)/0.5 mL intramuscular susp. [place] ([facility]) Afluria Quad 5862-4338 60 mcg (15 mcg x 4)/0.5 mL intramuscular susp. 584162 completed Afluria Quad 60 mcg (15 mcg x 4)/0.5 mL intramuscular susp. [place] ([facility]) Oxymetazoline hydrochloride 0.5 MG/ML [place] Nasal Prichard (oxymetazoline) 0.05 % Nasal [place]ichard (oxymetazoline) 0.05 % co mpleted oxymetazoline hydrochloride 0.5 MG/ML Nasal [place] ([facility]) topiramate 50 MG Oral Tablet topiramate 50 mg tablet topiramate 50 mg tablet completed topiramate 50 MG Oral Tablet [facility]) atorvastatin 20 MG Oral Tablet atorvastatin 20 mg tabl et atorvastatin 20 mg tablet completed atorvastatin 20 MG Oral Tablet [place] ([facility]) Triamcinolone Acetonide 1 MG/ML Topical Cream triamcinolone acetonide 0.1 % topical cream triamcinolone acetonide 0.1 % topical cream completed triamcinolone acetonide 1 MG/ML Topical Cream [place] ([facility]) Acetaminophen 325 MG / Hydrocodone Juve trate 5 MG Oral Tablet hydrocodone 5 mg- acetaminophen 325 mg tablet hydrocodone 5 mg-acetaminophen 325 mg tablet completed acetaminophen 325 MG / hydrocodone bitartrate 5 MG Oral Tablet [place] ([facility]) atorvastatin 10 MG Oral Tablet atorvastatin 10 mg tabl et atorvastatin 10 mg tablet completed atorvastatin 10 MG Oral Tablet [place] ([facility]) Aspirin 81 MG Delayed Release Oral Tablet aspirin 81 m g tablet,delayed release aspirin 81 mg tablet,delayed release c ompleted aspirin 81 MG Delayed Release Oral Tablet [place] ([facility]) 12 HR Guaifenesin 600 MG Extended Releas e Oral Tablet [Mucinex] Mucinex 600 mg tablet, extended release Mucinex 600 mg tablet, extended release completed 12 HR guaifenesin 600 MG Extende d Release Oral Tablet [Mucinex] [facility] ([facility]) Diazepam 5 MG Oral Tablet diazepam 5 mg tablet diazepam 5 mg tablet completed diazepam 5 MG Oral Tablet [place] ([facility]) Codeine Phosphate 2 MG/ML / Guaifenesin 20 MG/ML Oral Solution codeine 10 mg- guaifenesin 100 mg/5 mL oral liquid codeine 10 mg-guaifenesin 100 mg/5 mL or al liquid completed codeine phosphate 2 MG/ML / guaifenesin 20 MG/ML Oral Solution [place] ([facility]) Afluria Quad 1271-9760 60 mcg (15 mcg x 4)/0.5 mL intramuscular susp. 448047 completed Afluria Quad 2 -2020 60 mcg (15 mcg x 4)/0.5 mL intramuscular susp. [facility] ([facility]) Aspirin 81 MG Delayed Release Oral Tablet aspirin 81 m g tablet,delayed release aspirin 81 mg tablet,delayed release c ompleted aspirin 81 MG Delayed Release Oral Tablet [place] ([facility]) POLYETHYLENE GLYCOL 3350 105 MG/ML / Pot assium Chloride 0.27778 MEQ/ML / Sodium Bicarbonate 0.017 MEQ/ML / Sodium Chloride 0.0479 MEQ/ML Oral Solution peg- electrolyte solution 420 gram oral solution peg-electrolyte solution 420 gram oral solution completed polyethylene glycol 3350 155523 MG / potassium chloride 1480 MG / sodium bicarbonate 5720 MG / sodium chloride 92805 MG Powder for Oral Solution [place] ([facility]) Codeine Phosphate 2 MG/ML / Guaifenesin 20 MG/ML Oral Solution codeine 10 mg- guaifenesin 100 mg/5 mL oral liquid codeine 10 mg-guaifenesin 100 mg/5 mL or al liquid completed codeine phosphate 2 MG/ML / guaifenesin 20 MG/ML Oral Solution [place] ([facility]) Prednisone 10 MG Oral Tablet prednisone 10 mg tablet prednisone 10 mg tablet completed prednisone 10 MG Oral Tablet [place] ([facility]) benzonatate 100 MG Oral Capsule benzonatate 100 mg cap estefany benzonatate 100 mg capsule completed benzonatate 10 0 MG Oral Capsule [place] ([facility]) Alprazolam 0.5 MG Oral Tablet alprazolam 0.5 mg tablet alpra zolam 0.5 mg tablet completed alprazolam 0.5 MG Oral Tablet [place] ([facility]) Prednisone 10 MG Oral Tablet prednisone 10 mg tablet prednisone 10 mg tablet completed prednisone 10 MG Oral Tablet [place] ([facility]) Ciprofloxacin 3 MG/ML / Dexamethasone 1 MG/ML Otic Suspension [Ciprodex] Ciprodex 0.3 %-0.1 % ear drops,suspension Ciprodex 0.3 %-0.1 % ear drops,suspension completed ciprofloxacin 3 MG/ML / dexamethasone 1 MG/ML Otic Suspension [Ciprodex] [place] ([facility]) topiramate 50 MG Oral Tablet topiramate 50 mg tablet topiramate 50 mg tablet completed topiramate 50 MG Oral Tablet [place] ([facility]) topiramate 100 MG Oral Tablet topiramate 100 mg tablet topir amate 100 mg tablet completed topiramate 100 MG Oral Tablet [place] ([facility]) Acetaminophen 325 MG / Oxycodone Hydroch loride 5 MG Oral Tablet oxycodone- acetaminophen 5 mg-325 mg tablet oxycodone-acetaminophen 5 mg-325 mg tablet completed acetaminop hen 325 MG / oxycodone hydrochloride 5 MG Oral Tablet [place] ([facility]) Ciprofloxacin 250 MG Oral Tablet ciprofloxacin 250 mg tablet ciprofloxacin 250 mg tablet completed ciprofloxaci n 250 MG Oral Tablet [place] ([facility]) Triamcinolone Acetonide 1 MG/ML Topical Cream triamcinolone acetonide 0.1 % topical cream triamcinolone acetonide 0.1 % topical cream completed triamcinolone acetonide 1 MG/ML Topical Cream [place] ([facility]) Metoprolol Tartrate 100 MG Oral Tablet metoprolol tart rate 100 mg tablet metoprolol tartrate 100 mg tablet comp leted metoprolol tartrate 100 MG Oral Tablet [place] ([facility]) atorvastatin 10 MG Oral Tablet atorvastatin 10 mg tabl et atorvastatin 10 mg tablet completed atorvastatin 10 MG Oral Tablet [place] ([facility]) benzonatate 100 MG Oral Capsule benzonatate 100 mg cap estefany benzonatate 100 mg capsule completed benzonatate 10 0 MG Oral Capsule [place] ([facility]) Azithromycin 250 MG Oral Tablet azithromycin 250 mg ta blet azithromycin 250 mg tablet completed azithromycin 25 0 MG Oral Tablet [place] ([facility]) Azithromycin 250 MG Oral Tablet azithromycin 250 mg ta blet azithromycin 250 mg tablet completed azithromycin 25 0 MG Oral Tablet [place] ([facility]) Acetaminophen 325 MG / Hydrocodone Juve trate 5 MG Oral Tablet hydrocodone 5 mg- acetaminophen 325 mg tablet hydrocodone 5 mg-acetaminophen 325 mg tablet completed acetaminophen 325 MG / hydrocodone bitartrate 5 MG Oral Tablet [place] ([facility]) benzonatate 100 MG Oral Capsule benzonatate 100 mg cap estefany benzonatate 100 mg capsule completed benzonatate 10 0 MG Oral Capsule [place] ([facility]) Prednisone 10 MG Oral Tablet prednisone 10 mg tablet prednisone 10 mg tablet completed prednisone 10 MG Oral Tablet [place] ([facility]) 12 HR Guaifenesin 600 MG Extended Releas e Oral Tablet [Mucinex] Mucinex 600 mg tablet, extended release Mucinex 600 mg tablet, extended release completed 12 HR guaifenesin 600 MG Extende d Release Oral Tablet [Mucinex] [place] ([facility]) Triamcinolone Acetonide 1 MG/ML Topical Cream triamcinolone acetonide 0.1 % topical cream triamcinolone acetonide 0.1 % topical cream completed triamcinolone acetonide 1 MG/ML Topical Cream [place] ([facility]) Nortriptyline 25 MG Oral Capsule nortriptyline 25 mg c apsule nortriptyline 25 mg capsule completed nortriptyline 25 MG Oral Capsule [place] ([facility]) Cephalexin 500 MG Oral Capsule cephalexin 500 mg capsu le cephalexin 500 mg capsule completed cephalexin 500 MG Oral Capsule [place] ([facility]) Insurance Providers Payer name Policy type / Coverage type Policy ID Covered constitution party ID Covered constitution party's relationship to bullard Policy Bullard Plan Information [facility] [id number] SP [id number] [facility] O [id number] P [id number] [facility] [id number] SP [id number] [facility] AT [facility] [id number] 18 [id number] [facility] P [id number] S [id number] Self Pay P [id number] S [id number] Self Pay P UNAVAILABLE S UNAVAILA BLE [facility] PLAN [id number] S [id number] Problems, Conditions, and Diagnoses Code Display Name Description Problem Type Effective Dates Data Source(s) 787231169 Screening for malignant neoplasm of [address] Screening for Malignant Neoplasm of Breast Problem 09/03/2020 12:00:00 AM EST [place] ([facility]) [id number] Bilateral carpal tunnel syndrome Bilater al carpal tunnel syndrome Problem 07/10/2020 12:00:00 AM EST [facility] ([facility]) 268420741 Disorders of initiating and maintaining sleep Disorders of initiating and maintaining sleep Problem 07/10/2020 12:00:00 AM EST [facility] ([facility]) 730025804 Migraine without aura, not refractory Mi graine without aura, not refractory Problem 07/10/2020 12:00:00 AM EST [facility] ([facility]) 598192143 Chronic tension-type headache Chronic tension-type hea dache Problem 07/10/2020 12:00:00 AM EST [facility] ([facility]) 077090288 Mammography abnormal Mammography Abnormal Problem 06/04/2020 12:00:00 AM EDT [facility] ([facility]) 374855513 Chronic depression Chronic Depression Problem 12:00:00 AM EDT [facility] ([facility]) 234088301 Mammography abnormal Mammography Abnormal Problem 06/04/2020 12:00:00 AM EDT [facility] ([facility]) 954753084 Chronic depression Chronic Depression Problem 12:00:00 AM EDT [facility] ([facility]) 594887973 Mammography abnormal Mammography Abnormal Problem 06/04/2020 12:00:00 AM EDT [facility] ([facility]) 042052838 Chronic depression Chronic Depression Problem 12:00:00 AM EDT [facility] ([facility]) 67080127 Acute bacterial sinusitis Acute Bacterial Sinusitis Pr oblem 05/26/2020 12:00:00 AM EDT [facility] ([facility]) 01125674 Acute bacterial sinusitis Acute Bacterial Sinusitis Pr oblem 05/26/2020 12:00:00 AM EDT [facility] ([facility]) 05922664 Acute bacterial sinusitis Acute Bacterial Sinusitis Pr oblem 05/26/2020 12:00:00 AM EDT [facility] ([facility]) 70450185 Cervico-occipital neuralgia Cervico-occipital neuralgi a Problem 05/05/2020 12:00:00 AM EDT [facility] ([facility]) 929096421 Spondylolysis of cervical spine Spondylolysis of cervical spine Problem 05/05/2020 12:00:00 AM EDT [facility] ([facility]) 70165882 Neck pain Neck pain Problem 05/05/2020 12:00:00 AM ED T [facility] ([facility]) 941846839 Lumbar radiculopathy Lumbar radiculopathy Problem 05/05/2020 12:00:00 AM EDT [facility] ([facility]) 489664866 Spondylolysis Spondylolysis Problem 05/05/2020 12:00:00 AM EDT [facility] ([facility]) 494635550 Low back pain Low back pain Problem 05/05/2020 12:00:00 AM EDT [facility] ([facility]) 719537978 Localization-related epilepsy Localization-related epi lepsy Problem 05/05/2020 12:00:00 AM EDT [facility] ([facility]) 69217465 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 Problem 05/05/2020 12:00:00 AM EDT [facility] ([facility] ) 681.02 Cellulitis of right finger Cellulitis of right finger 04/28/2020 02:04:42 PM EDT [facility] [id number] Cellulitis of finger of right hand Cellu litis of Finger of Right Hand Problem 04/28/2020 12:00:00 AM EDT [facility] ([facility]) 793.80 Mammography abnormal Mammography abnormal 03/19 09:14:38 AM EDT [facility] [id number] Clinical finding Clinical Finding Problem 03/19/2020 12 :00:00 AM EDT [facility] ([facility]) 127627436 Abnormal findings on diagnostic imaging of breast Abnormal Findings on Diagnostic Imaging of Breast Problem 03/19/2020 12:00:00 AM EDT [facility]VIN [facility] ([facility]) 283766962 Abnormal findings on diagnostic imaging of breast Abnormal Findings on Diagnostic Imaging of Breast Problem 03/19/2020 12:00:00 AM EDT [facility] ([facility]) 842618295 Abnormal findings on diagnostic imaging of breast Abnormal Findings on Diagnostic Imaging of Breast Problem 03/19/2020 12:00:00 AM EDT [facility] ([facility]) 724.4 Lumbar radiculopathy Lumbar radiculopathy 02/19 03:41:34 PM EDT [facility] 300559005 Localization-related (focal) (partial) symptomatic epilepsy and epileptic syndromes with simple partial seizures, intractable, without status epilepticus Localization-related (focal) (partial) s ymptomatic epilepsy and epileptic syndromes with simple partial seizures, intractable, without status epilepticus 02/20/2020 03:41:34 PM EDT [facility] [id number] Lumbosacral radiculopathy Lumbosacral Radiculopathy Pr oblem 02/20/2020 12:00:00 AM EDT [place] ([facility]) [id number] Localization-related symptomatic epileps y Localization-related Symptomatic Epilepsy Problem 02/20/2020 12:00:00 AM EDT [place] ([facility]) 4067528 Lumbosacral radiculopathy Lumbosacral Radiculopathy Pr oblem 02/20/2020 12:00:00 AM EDT [place] ([facility]) [id number] Localization-related symptomatic epileps y Localization-related Symptomatic Epilepsy Problem 02/20/2020 12:00:00 AM EDT [place] ([facility]) 7610936 Lumbosacral radiculopathy Lumbosacral Radiculopathy Pr oblem 02/20/2020 12:00:00 AM EDT [place] ([facility]) [id number] Localization-related symptomatic epileps y Localization-related Symptomatic Epilepsy Problem 02/20/2020 12:00:00 AM EDT [place] ([facility]) 16607514 Other constipation Other constipation 0 09:30:39 AM EDT [facility] [id number] Mixed hyperlipidemia Mixed hyperlipidemia 02/06/2020 09:30:39 AM EDT [facility] 724.2 Chronic low back pain Chronic low back pain 09/2019 09:30:39 AM EDT [facility] [id number] Low back pain Low Back Pain Problem 02/06/2020 12:00:00 AM EDT [place] ([facility]) [id number] Chronic constipation Chronic Constipation Problem 02/06/2020 12:00:00 AM EDT [place] ([facility]) 572643968 Mixed hyperlipidemia Mixed Hyperlipidemia Problem 02/06/2020 12:00:00 AM EDT [place] ([facility]) 538736406 Low back pain Low Back Pain Problem 02/06/2020 12:00:00 AM EDT [place] ([facility]) 700378667 Chronic constipation Chronic Constipation Problem 02/06/2020 12:00:00 AM EDT [place] ([facility]) 092686039 Mixed hyperlipidemia Mixed Hyperlipidemia Problem 02/06/2020 12:00:00 AM EDT [place] ([facility]) 427028181 Low back pain Low Back Pain Problem 02/06/2020 12:00:00 AM EDT [place] ([facility]) 545924677 Chronic constipation Chronic Constipation Problem 02/06/2020 12:00:00 AM EDT [place] ([facility]) 415514496 Mixed hyperlipidemia Mixed Hyperlipidemia Problem 02/06/2020 12:00:00 AM EDT [place] ([facility]) H17844 Personal history of nicotine dependence Personal history of nicotine dependence Diagnosis 05/21/2020 02:58:[address] 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 E7800 Pure hypercholesterolemia, unspecified P ure hypercholesterolemia, unspecified Diagnosis 05/21/2020 02:58:[address] [facility] J0110 Acute frontal sinusitis, unspecified Acute front al sinusitis, unspecified Diagnosis 05/21/2020 02:58:00 PM [facility] J0100 Acute maxillary sinusitis, unspecified A cute maxillary sinusitis, unspecified Diagnosis 05/21/2020 02:58:00 PM [facility] J3489 Other specified disorders of nose and na oneida sinuses Other specified disorders of nose and nasal sinuses Diagnosis 05/21/2020 02:58:[address] 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 THER SCREENING TECH (CURRENT) DRUG THERAPY Diagnosis [facility]/12[facility]2020 [facility] S92.255A Nondisplaced fracture of monique icular [scaphoid] of left foot, initial encounter for closed fracture NONDISP FX OF NAVICULAR OF LEFT FOOT, IN IT FOR SUZANNE Diagnosis 01/12/2020 02:57:00 PM ED[facility] S92.345A Nondisplaced fracture of fou rth metatarsal bone, left foot, initial encounter for closed fracture NONDISP FX OF FOURTH METATARSAL BONE, LE FT FOOT, I Diagnosis 01/12/2020 02:57:00 PM EDT [facility] l S99.911A Unspecified injury of right ankle, initi al encounter UNSPECIFIED INJURY OF RIGHT ANKLE, INITIAL ENCOUNTER Diagnosis 01/12/2020 02:57:00 PM ED T [facility] Surgeries/Procedures Procedure Description Date Indications Data Source(s) ELECTROENCEPHALOGRAM W/REC AWAKE&ASLEEP 06/16/2020 12: 00:00 AM EST [place] ([facility]) ELECTROENCEPHALOGRAM W/REC AWAKE&ASLEEP 06/16/2020 12: 00:00 AM EST [place] ([facility] ) MAMMO, diagnostic, digital, bilateral 06/04/2020 12:00 :00 AM EDT [place] ([facility]) Needle electromyography, each extremity, with related paraspinal areas, when performed, done with nerve conduction, amplitude and latency/velocity study; complete, five or more muscles studied, innervated by three or more nerves or four or more spinal levels (list separately in addition to the code for primary procedure). 05/25/2020 12:00:00 AM EDT [place] ([facility], ) Needle electromyography, each extremity, with related paraspinal areas, when performed, done with nerve conduction, amplitude and latency/velocity study; complete, five or more muscles studied, innervated by three or more nerves or four or more spinal levels (list separately in addition to the code for primary procedure). 05/25/2020 12:00:00 AM EDT [facility] ([facility], ) Nerve Conduction 11-12 Studies 05/25/2020 12:00:00 AM EDT [place] ([facility] ) Needle electromyography, each extremity, with related paraspinal areas, when performed, done with nerve conduction, amplitude and latency/velocity study; complete, five or more muscles studied, innervated by three or more nerves or four or more spinal levels (list separately in addition to the code for primary procedure). 05/11/2020 12:00:00 AM EDT [place] [facility] ([facility], ) Needle electromyography, each extremity, with related paraspinal areas, when performed, done with nerve conduction, amplitude and latency/velocity study; complete, five or more muscles studied, innervated by three or more nerves or four or more spinal levels (list separately in addition to the code for primary procedure). 05/11/2020 12:00:00 AM EDT [facility] [facility] ([facility] ) Nerve Conduction 11-12 Studies 05/11/2020 12:00:00 AM EDT [facility] ([facility] ) MRI BRAIN BRAIN STEM W/O CONTRAST MATERIAL 05/10/2020 12:00:00 AM EDT [place] ([facility] ) MRI BRAIN BRAIN STEM W/O CONTRAST MATERIAL 05/10/2020 12:00:00 AM EDT [place] ([facility] ) MRI SPINAL CANAL CERVICAL W/O CONTRAST MATRL 0 12:00:00 AM EDT [place] ([facility] ) MRI SPINAL CANAL CERVICAL W/O CONTRAST MATRL 0 12:00:00 AM EDT [facility] ([facility] ) RADIOLOGIC EXAM KNEE COMPLETE 4/MORE VIEWS 01/22/2020 12:00:00 AM EDT [facility] ([facility] ) RADEX FOOT COMPLETE MINIMUM 3 VIEWS 01/22/2020 12:00:0 0 AM EDT [place] ([facility] ) RADIOLOGIC EXAM KNEE COMPLETE 4/MORE VIEWS 01/13/2020 12:00:00 AM EDT [facility] ([facility] ) Results ID Date Data Source [id number] 08/14/2020 11:30:00 AM EST [place] ([facility]) Name Value Range Interpretation Code Description Data Alexa rce(s) Supporting Document(s) appearance, urine clear clear normal Appearance, Urine [place] ([facility]) protein, urine auto negative negative normal Protein, Urine A uto [place] ([facility]) pH,urine 6.0 units 5.0-9.0 normal pH,urine [place] ([facility]) specific gravity urine auto 1.002-1.035 normal Specifi c [place] Urine Auto [place] ([facility]) color, urine brielle yellow normal Color, Urine [place] (No [facility]) bilirubin, urine auto negative negative normal Bilirubin, Uri ne Auto [place] ([facility]) nitrite, urine auto positive negative normal Nitrite, Urine A uto [place] ([facility]) urobilinogen, urine auto 0.2 mg/dL 0.0-2.0 normal Urobilinoge n, Urine Auto [place] ([facility]) ketone, urine auto negative negative normal Ketone, Urine Aut o [place] ([facility]) glucose, urine (UA) auto negative negative normal Glucose, Ur ine (UA) Auto [place] ([facility]) leukocyte esterase, urine auto trace negative Above high normal Leukocyte Esterase, Urine Auto [place] ([facility]) WBC, urine auto 2 /hpf 0-3 normal WBC, Urine Auto [place] ([facility]) RBC, urine auto 0 /hpf 0-3 normal RBC, Urine Auto [place] ([facility]) blood, urine blood negative negative normal Blood, Urine Bloo d [place] ([facility]) bacteria, urine auto 1+ negative Above high normal Bacteria , Urine Auto [place] ([facility]) squamous epithelial cell ur AU 2 /hpf 0-6 normal Squam ous Epithelial Cell Ur AU [place] ([facility]) mucus, urine small negative normal Mucus, Urine [place] ([facility]) hyaline cast, urine auto 0 /lpf 0-1 normal Hyaline Paulo t, Urine Auto [place] ([facility]) ID Date Data Source [id number] 08/14/2020 11:30:00 AM EST [place] ([facility]) Name Value Range Interpretation Code Description Data Alexa rce(s) Supporting Document(s) appearance, urine clear clear normal Appearance, Urine [place] ([facility]) pH,urine 6.0 units 5.0-9.0 normal pH,urine [place] ([facility]) color, urine brielle yellow normal Color, Urine [place] ([facility]) glucose, urine (UA) auto negative negative normal Glucose, Ur ine (UA) Auto [place] ([facility]) protein, urine auto negative negative normal Protein, Urine A uto [place] ([facility]) specific gravity urine auto 1.002-1.035 normal Specifi c [place] Urine Auto [place] ([facility]) urobilinogen, urine auto 0.2 mg/dL 0.0-2.0 normal Urobilinoge n, Urine Auto [place] ([facility]) ketone, urine auto negative negative normal Ketone, Urine Aut o [place] ([facility]) nitrite, urine auto positive negative normal Nitrite, Urine A uto [place] ([facility]) blood, urine blood negative negative normal Blood, Urine Bloo d [place] ([facility]) leukocyte esterase, urine auto trace negative Above high normal Leukocyte Esterase, Urine Auto [place] ([facility]) bilirubin, urine auto negative negative normal Bilirubin, Uri ne Auto [place] ([facility]) RBC, urine auto 0 /hpf 0-3 normal RBC, Urine Auto [place] ([facility]) WBC, urine auto 2 /hpf 0-3 normal WBC, Urine Auto [place] ([facility]) squamous epithelial cell ur AU 2 /hpf 0-6 normal Squam ous Epithelial Cell Ur AU [place] ([facility]) bacteria, urine auto 1+ negative Above high normal Bacteria , Urine Auto [place] ([facility]) mucus, urine small negative normal Mucus, Urine [place] (No [facility]) hyaline cast, urine auto 0 /lpf 0-1 normal Hyaline Paulo t, Urine Auto [place] ([facility]) ID Date Data Source [id number] 06/18/2020 01:00:00 PM EST [facility] Name Value Range Interpretation Code Description Data Alexa rce(s) Supporting Document(s) SARS coronavirus 2 RNA [facility] This lab was ordered by [facility] and reported by [facility]. ID Date Data Source [id number] 05/25/2020 10:02:00 AM EDT [facility] [address] [place] [address] PHONE: [phone] FAX: [phone] Name .................. : ANTONIO BOWERS Acct Number.................. : [id number] ROOM. ................. : -1B MR Number ................... : [id number] Stay type ............. : E/R Discharge Date......... ... : 05/21/20 Admit Date ......... : 05/21/20 Admit Phys .................... : TURRIN HANNAH Date of ....... : 1960 Family Phys ................... : [employer] Phone .................. : [phone] Age ................................ : 59 Film# .................. .:[id number] Sex ................................. : F Unsigned transcriptions are preliminary reports and do not represent a medical or legal document CHEST 2 VIEWS [id number] COMPLETE:05/21/20 17:02 [facility] [id number] Reason(s): Congestion CHEST X-RAY: 2-VIEWS FINDINGS: Frontal and lateral views of the chest are performed. COPD changes are noted. Pneumonic infiltrate, pneumothorax, pleural effusion, cardiomegaly or acute osseous abnormality is not seen. IMPRESSION: COPD. No acute pathology identified. Electronically Reviewed and Signed By Alfred Tovar MD , 05/25/20 10:02, K[facility] Transcribe Initials: CHARLES , Transcribe Date: 05/22/20 02:45, Dictation Date: Copy for: EMERGENCY DEPT via [facility] Copy for: 710 MED REC DISCHARGED Page 1 of 1 Name Value Range Interpretation Code Description Data Alexa rce(s) Supporting Document(s) ID Date Data Source [id number] 05/21/2020 02:58:[address] [facility] [address] [facility] Emergency Department [address] [place] [address] Phone #: [phone] 05/21/2020 14:45 Patient: ELISSA ALVAREZ Sex: F : 1960 Age: 59yWEIGHT:87.0 kg (S) HEIGHT:64 inches (S) BMI:32.9ALLERGIES: Depakote, Meperidine and Related, Sulfa AntibioticsCHIEF COMPLAINT: cough, sinus painDIAGNOSIS: SinusitisLAB ORDERSOrder Description Priority Entered Acknowledged InitialedDIAGNOSTIC STUDY ORDERSOrder Description Priority Entered Acknowledged InitialedChest 2 View STAT 15:09 05/21/2020 15:14 Sorberica,(Oxygen?(No)) Adriel Briceño R.N., M.D.; Reason for Study: Congestion, CoughMEDICATION/IV/DRIP/FLUID ORDERSOrder Description Priority Entered Acknowledged InitialedTessalon Perles PO 15:09 05/21/2020 15:21 Sorbero,200 mg Adriel Briceño R.N., M.D.;Motrin 600 mg PO 15:10 05/21/2020 15:21 Sorbero,X1 dose: 600 mg Adriel Briceño RMarlinNMarlin(NOW x1) M.DMarlin; Reason for ordering with alerts: Does not appear to be a true allergy -- 15:10 05/21/2020 Adriel Briceño M.D.Cefdinir Capsules 15:35 05/21/2020 15:38 Sorbero,PO 300 mg (NOW Adriel Briceño RMarlinNMarlinx1) M.DMarlin;GENERAL ORDERSOrder Description Priority Entered Acknowledged Initialed[Electronically signed by Adriel Briceño M.D. (16:02 05/21/2020)][Electronically signed by Harsh Solis R.N. (16:12 05/21/2020)][Electronically locked by Harsh Solis R.N. (16:12 05/21/2020)] Name Value Range Interpretation Code Description Data Alexa rce(s) Supporting Document(s) ID Date Data Source [id number] 05/21/2020 02:58:[address] [facility] [address] [facility] Emergency Department [address] [place] [address] Phone #: [phone] 05/21/2020 14:45 Patient: ELISSA ALVAREZ Sex: F : 1960 Age: 59yWeight: 87.0 kgHeight/Length: 64 in.BMI: 32.9ALLERGIES: Depakote, Meperidine and Related, Sulfa AntibioticsThe patient's Home Medications are listed below:CONTINUE TAKING THE FOLLOWING MEDICATIONS: Amitriptyline HCl Oral (50 mg) 2 tablets, daily, at bedtime Atorvastatin Calcium Oral (40 mg) 1 tablet, daily Omeprazole Oral (20 mg) 1 capsule, daily Topiramate Oral 150 mg, 2x a dayThe source(s) of the original Home Medication information:Not obtained.The following Medications were given to the patient in the Emergency Department:Tessalon Perles [PO] PO 200 mg, administered: 05/21/2020 3:21:00 PMMotrin [PO] PO 600 mg, administered: 05/21/2020 3:21:00 PMCefdinir [PO] PO 300 mg, administered: 05/21/2020 3:38:00 PMThe following Medications were prescribed to the patient:cefdinir 300 mg capsule Take 1 capsule twice a day for 10 days -- Dispense 20 capsule. Refills: 0.Substitution permitted.Pharmacy - [facility] [phone] ; [place] [address]. .Tessalon Perles 100 mg capsule Take 1 capsule three times a day for 5 days -- Dispense 15 capsule.Refills: 1. Substitution permitted.Pharmacy - [facility] [address] ; [place] [address]. Phone: [phone] [facility] Emergency Department [address] [place] [address] Phone #: [phone]- [phone] 05/21/2020 14:45 Patient: ELISSA ALVAREZ Sex: F : 1960 Age: [id number] . -- Adriel Briceño M.D. Name Value Range Interpretation Code Description Data Alexa rce(s) Supporting Document(s) ID Date Data Source [id number] 05/21/2020 02:58:[address] [facility] [address] [facility] Emergency Department [address] [place] [address] Phone #: [phone]- [phone] 05/21/2020 14:45 Patient: ELISSA ALVAREZ Sex: F : 1960 Age: 59yWeight: 87.0 kgHeight/Length: 64 inBMI: 32.9ALLERGIES: Meperidine and Related, Sulfa Antibiotics, Depakote Date/Time Medication Administered Medication OrderedGiven TESSALON PERLES [PO] Tessalon Perles PO 200 mg15:21 05/21/2020 (BENZONATATE)Harsh Solis R.N. Dose: 200 mg Capsules POGiven MOTRIN [PO] (IBUPROFEN) Motrin 600 mg PO X1 dose: 65779:21 05/21/2020 Dose: 600 mg Tablets PO mg (NOW x1)Harsh Solis R.N.Given CEFDINIR [PO] Cefdinir Capsules PO 300 mg15:38 05/21/2020 Dose: 300 mg Capsules PO (NOW x1)Harsh Solis R.N. Name Value Range Interpretation Code Description Data Alexa rce(s) Supporting Document(s) ID Date Data Source [id number] 05/21/2020 02:58:[address] [facility] [address] [facility] Emergency Department [address] [place] [address] Phone #: [phone]- [phone] 05/21/2020 14:45 Patient: ELISSA ALVAREZ Sex: F : 1960 Age: 59yAcute maxillary and frontal sinusitis.INSTRUCTIONSAlternate Tylenol (Acetaminophen) or Motrin (Ibuprofen) for fever, temperature greater than 102 degreesorally. Take according to label instructions.Drink plenty of fluids. Do not smoke. No alcohol.Warnings: Further evaluation is necessary. It is very important to follow up with a healthcare provider.GENERAL WARNINGS: Return or contact your physician immediately if your condition worsens orchanges unexpectedly, if not improving as expected, or if other problems arise. Specifically return if pain,vomiting, bleeding, breathing difficulty or fever greater than 102 degrees F and not controlled byacetaminophen or ibuprofen worsens.Your Current Medications: Your current home medications have been reviewed.CONTINUE TAKING THE FOLLOWING MEDICATIONS:Amitriptyline HCl Oral : Tablet 50 mg, 2 tablets daily, at bedtime.Atorvastatin Calcium Oral : Tablet 40 mg, 1 tablet daily.Omeprazole Oral : Capsule Delayed Release 20 mg, 1 capsule daily.Topiramate Oral : 150 mg 2x a day.Prescription Medications:cefdinir 300 mg capsule Take 1 capsule twice a day for 10 days -- Dispense 20 capsule. Refills: 0.Substitution permitted.Pharmacy - [facility] [address] ; [place] [address]. Phone: .Tessalon Perles 100 mg capsule Take 1 capsule three times a day for 5 days -- Dispense 15 capsule.Refills: 1. Substitution permitted.Pharmacy - [facility] [phone] ; [place] [address]. .Follow-up:Return to the emergency department as needed. Follow up with your healthcare provider in five days ifnot better. Call for an appointment. Reason for referral: evaluation and treatment. Summary of careprovided to patient via paper.Understanding of the discharge instructions verbalized by patient. Expected course of illness, disch arge [address] [facility] Emergency Department [address] [place] [address] Phone #: [phone]- [phone] 05/21/2020 14:45 Patient: ELISSA ALVAREZ Sex: F : 1960 Age: 59yinstructions, activity level, diet, prescriptions x2, follow-up appointment and risks and benefits of treatmentreviewed with patient and understanding verbalized. Agrees to plan of care. ADDITIONAL INFORMATIONSinusitis (Antibiotic Treatment)The sinuses are air-filled spaces within the bones of the face. They connect to the inside of thenose. Sinusitis is an inflammation of the tissue that lines the sinuses. Sinusitis can occur during acold. It can also happen due to allergies to pollens and other particles in the air. Sinusitis can causesymptoms of sinus congestion and a feeling of fullness. A sinus infection causes fever, headache,and facial pain. There is often green or yellow fluid draining from the nose or into the back of thethroat (post-nasal drip). You have been given antibiotics to treat this condition.Home care Take the full course of antibiotics as instructed. Do not stop taking them, even when you feel better. Drink plenty of water, hot tea, and other liquids. This may help thin nasal mucus. It also may help your sinuses drain fluids. Heat may help soothe painful areas of your face. Use a towel soaked in hot water. Or, shredded filler cigar maker machine the shower and direct the warm spray onto your face. Using a vaporizer along with a [address] [facility] Emergency Department [address] [place] [address] Phone #: [phone]- [phone] 05/21/2020 14:45 Patient: ELISSA ALVAREZ Sex: F : 1960 Age: 59y menthol rub at night may also help soothe symptoms. An expectorant with guaifenesin may help thin nasal mucus and help your sinuses drain fluids. You can use an cozr-zef-ezxkioh decongestant, unless a similar medicine was prescribed to you. Nasal sprays work the fastest. Use one that contains phenylephrine or oxymetazoline. First blow your nose gently. Then use the spray. Do not use these medicines more often than directed on the label. If you do, your symptoms may get worse. You may also take pills that contain pseudoephedrine. Don't use products that combine multiple medicines. This is because side effects may be increased. Read labels. You can also ask the pharmacist for help. (People with high blood pressure should not use decongestants. They can raise blood pressure.) Ialh-jix-mcsfezf antihistamines may help if allergies contributed to your sinusitis. Do not use nasal rinses or irrigation during an acute sinus infection, unless your healthcare provider tells you to. Rinsing may spread the infection to other areas in your sinuses. Use acetaminophen or ibuprofen to control pain, unless another pain medicine was prescribed to you. If you have chronic liver or kidney disease or ever had a stomach ulcer, talk with your healthcare provider before using these medicines. (Aspirin should never be taken by anyone under age 18 who is ill with a fever. It may cause severe liver damage.) Don't smoke. This can make symptoms worse.Follow-up careFollow up with your healthcare provider or our staff if you are not better in 1 week.When to seek medical adviceCall your healthcare provider if any of these occur: Facial pain or headache that gets worse Stiff neck Unusual drowsiness or confusion Swelling of your forehead or eyelids Vision problems, such as blurred or double vision Fever of 100.4F (38C) or higher, or as directed by your healthcare provider Seizure [address] [facility] Emergency Department [address] [place] [address] Phone #: ext- [phone] 05/21/2020 14:45 Patient: ELISSA ALVAREZ Sex: F : 1960 Age: 59y Breathing problems Symptoms don't go away in 10 daysPreventionHere are steps you can take to help prevent an infection: Keep good hand washing habits. Don't have close contact with people who have sore throats, colds, or other upper respiratory infections. Don't smoke, and stay away from secondhand smoke. Stay up to date with of your vaccines. 6004-7067 [employer]. [address] [place] [address]. All rights reserved. This information is not intended as asubstitute for professional medical care. Always follow your healthcare professional's instructions.Fever Control (Adult)A fever is a normal reaction of your body to an illness. The temperature itself usually isn't harmful. Itactually helps your body fight infections. You don't need to treat a fever unless you feel veryuncomfortable.Home careFollow these tips to take care of yourself at home: If you feel warm, check your temperature. Dress in light clothing. This will help you lose extra body heat through your skin. The fever will go up if you wear extra layers or wrap in blankets. Fever causes your body to lose water through evaporation. Drink plenty of fluids. These include water, juice, clear sodas, diana jimmie, or lemonade.Fever me dicinesYou can take acetaminophen every 4 to 6 hours if: You feel very uncomfortable Your oral temperature is 100.4F (38C) or higherIf you can't take or keep down oral medicine, ask your pharmacist for acetaminophen suppositories.You don't need a prescription for these. [address] [facility] Emergency Department [address] [place] [address] Phone #: ext- [phone] 05/21/2020 14:45 Patient: ELISSA ALVAREZ Sex: F : 1960 Age: 59yIf the fever doesn't get better within 1 hour after you take acetaminophen, take ibuprofen. If thisworks, keep taking the ibuprofen every 6 to 8 hours.If you have chronic liver or kidney disease, talk with your healthcare provider before taking thesemedicines. Also talk with your provider if you ever had a stomach ulcer or GI (gastrointestinal)bleeding.If either medicine alone doesn't keep the fever down, you may switch off between the 2 medicinesevery 3 to 4 hours. But do this only if your healthcare provider has told you to. For example, takeibuprofen. Wait 3 hours. Then take acetaminophen. Wait 3 hours. Take ibuprofen, and so on. Followyour provider's instructions exactly.Don't give aspirin to anyone younger than age 19 who is ill with a fever. Aspirin can cause seriousside effects such as liver damage and Chaka syndrome. Although rare, Chaka syndrome is a veryserious illness usually found in children younger than age 15. The syndrome is closely linked to theuse of aspirin or aspirin-co ntaining medicine during viral infection.Follow-up careFollow up with your healthcare provider if you don't get better after 48 hours.When to seek medical adviceCall your healthcare provider right away if any of these occur: Fever, as directed by your healthcare provider, or: o Fever of 100.4F (38C) or above lasting for 24 to 48 hours o Fever lasting more than 3 days, even without other symptoms o Fever that happens after visiting a foreign country o Fever that happens within a month after visiting a country with malaria. Malaria is a serious illness. A fever can still be malaria even if you took medicine to prevent it. The medicine does not work in all cases. Confusion or trouble thinking Headache or stiff neck Flat, small, purplish red spots on your skin Low blood pressure Fast heart rate Fast (rapid) breathing [address] [facility] Emergency Department [address] [place] [address] Phone #: ext- [phone] 05/21/2020 14:45 Patient: ELISSA ALVAREZ Sex: F : 1960 Age: 59y You are You just had surgery, another medical procedure, or were just discharged from the hospital Use of medicines that suppress the immune system (immunosuppressants). These include Prednisone, cancer medicines, and organ transplant rejection medicines. If you are not sure about whether your medicines suppress your immune system, ask your healthcare provider.Call 911Someone should call 911 if you: Are having trouble breathing or shortness of breath Are unresponsiveImportant reminderCall your healthcare provider if you get a fever after visiting a place where infectious diseases arecommon. Many people turkey picker a cold or other virus while traveling. This usually goes away without aproblem. But, some places have more serious diseases. Fever with certain other symptoms maymean you have a serious illness. Symptoms to watch for include diarrhea, skin rashes, insect bites,and skin boils, or infections. Your provider may ask you: What you did on your trip How long you were there Where you stayed (hotel, nooksack house, tent) What you ate and drank If you were bitten by insects or other bugs If you swam in freshwater If you had sex or got a tattoo or piercing while you were thereCheck the CDC to get more information about specific infectious diseases in the areas you havetraveled. 6259-3489 [employer]. [address] [place] [address]. All rights reserved. This information is not intended as asubstitute for professional medical care. Always follow your healthcare professional's instructions. You have been given the following additional information: [address] [facility] Emergency Department [address] [place] [address] Phone #: ext- [phone] 05/21/2020 14:45 Patient: ELISSA ALVAREZ Sex: F : 1960 Age: 59ySinusitis (Antibiotic Treatment)Fever Control (Adult)(Electronically signed by Adriel Briceño M.D. 05/21/2020 16:02) Name Value Range Interpretation Code Description Data Alexa rce(s) Supporting Document(s) ID Date Data Source [id number] 05/21/2020 02:58:[address] [facility] 1 Clinical Report - Nurses [facility] Emergency Department [address] [place] [address] Phone #: ext- [phone] 05/21/2020 14:45 Patient: ELISSA ALVAREZ Sex: F : 1960 Age: 59yTRIAGEArrived by private vehicle. Historian: patient.Triage time: 14:47 05/21/2020. Acuity: LEVEL 3.Chief Complaint: COUGH.14:47 10/20. Alert. No acute distress.Onset. (1 weeks ago). Reports muscle aches. The patient has had nasal congestion, right ear pain andhas had left ear pain and sinus pain. The patient has had a cough productive of yellow sputum.SEPSIS SCREEN: SIRS Screen negative. Sepsis Screen negative. No suspected or confirmed signs ofinfection present. --14:59 05/21/20 Lorena Latham RN14:47 05/21/20. BP: 128/100. MAP: 109. HR: 90. RR: 16. O2 saturation: 97%. Temp: 96.6 F. Pain levelnow: 6/10. Describes the quality as "pain". It has been constant. Pain level at maximum: 6/10. No radiationnoted. It is worsened by movement, turning, coughing and deep breathing. --14:59 05/21/20 MANUEL Angulo.Weight: 87 kg stated. Height/Length: 64 inches Per Patient. BMI: 32.9. --14:46 05/21/20 Lorena Latham RN.MedicationsAmitriptyline HCl Oral (Tablet 50 mg) 2 tablets, daily at bedtime. --15:03 05/21/20 Lorena Latham RN Atorvastatin Calcium Oral (Tablet 40 mg) 1 tablet, daily. --15:04 05/21/20 Lorena Latham RN Omeprazole Oral (Capsule Delayed Release 20 mg) 1 capsule, daily. --15:05 05/21/20 MANUEL Angulo Topiramate Oral 150 mg, 2x a day. --15:08 05/21/20 Lorena Latham RN.AllergiesDepakote.(rash) --14:49 05/21/20 VERNON Moulfa Antibiotics.(itching, rash) --14:50 05/21/20 Lorena Latham RNMeperidine and Related. (Seizure) --14:50 05/21/20 Lorena Latham RN.PROBLEMS:Hypercholesterolemia.Spinal Stenosis.Seizure. --14:51 05/21/20 Lorena Latham RN.ADDITIONAL SURGERIES:Hysterectomy. --14:51 05/21/20 Lorena Latham RN. 2 Clinical Report - Nurses [facility] Emergency Department [address] [place] [address] Phone #: ext- [phone] 05/21/2020 14:45 Patient: ELISSA ALVAREZ Sex: F : 1960 Age: 59y History 14:47 05/21/20. PAST MEDICAL HX: Immunizations: up-to-date. SOCIAL HX: Former smoker, end date 2009. No alcohol use or drug use. The patient was offered HIV testing but declined and hepatitis C testing but declined. Infectious disease exposure: Has cough. (Returned home from [place], [place] yesterday visiting family (granddaughter had a cold) Denies contact with PUI for COVID- 19). Patient is not a known carrier of tuberculosis, hepatitis, HIV, MRSA or VRE. Patient is not a known carrier of CRE. SELF HARM ASSESSMENT: Self harm assessment was performed. The patient answered "no" to the question(s) "Do you have thoughts of harming or killing yourself?" and "Have you recently had thoughts about harming or killing others?". ABUSE ASSESSMENT: Abuse assessment. The patient had positive responses to the question(s) "Do you feel safe in your home?" (yes). Abuse denied. No report of abuse. NUTRITIONAL RISK ASSESSMENT: The nutritional risk assessment revealed no deficiencies. FUNCTIONAL ASSESSMENT: Functional assessment: no impairments noted. LEARNING NEEDS ASSESSMENT: The learning needs assessment revealed no barriers. FALL RISK ASSESSMENT: Fall risk assessment completed. Fall interventions initiated. Patient placed on stretcher. Side rails up x2. Bed in low position. Brakes on. Patient identified as a fall risk by chart flagged. Family at bedside. Call light in reach of patient. Instructed not to get up without assistance. Instructions given to patient. Verbalizes understanding. SKIN INTEGRITY ASSESSMENT: Skin integrity risk assessment completed. No skin integrity risk identified. --14:59 05/21/20 Lorena Latham RN late entry - 15:51 05/21/20. SOCIAL HX: The patient has not traveled outside the [place] --15:51 05/21/20 Harsh Solis R.N. Interventions 14:47 05/21/20. To treatment room. Ambulatory by hospital staff. Report given to the primary nurse. --14:59 05/21/20 Lorena Latham RN.PHYSICAL UBSMKDZGHO20:10 05/21/20. Ambulatory to room. Patient gowned.GENERAL / NEURO / PSYCH: Alert. Appears in no acute distress.HEENT: Pharynx within normal limits. Voice within normal limits. Mucous membranes are pink.RESPIRATORY: Respirations not labored. Breath sounds within normal limits.CVS: Capillary refill less than 2 seconds. 3 Clinical Report - Nurses [facility] Emergency Department [address] [place] [address] Phone #: ext- [phone] 05/21/2020 14:45 Patient: ELISSA ALVAREZ Sex: F : 1960 Age: 59y SKIN: Skin is warm and dry. Normal skin turgor. --15:10 05/21/20 Harsh Solis R.N.NURSING PROGRESS NOTES14:47 05/21/20. Head of bed elevated. Two patient identifiers checked. Call light placed in reach. Siderails up. Bed placed in lowest position. Brakes of bed on. Patient ready for evaluation- ED suzanna PIZARRO notified. --15:00 05/21/20 Lorena Latham RN 15:14 05/21/20. Patient transported to radiology by wheelchair with eye technician. --15:14 05/21/20 Harsh Solis R.N. 15:21 05/21/2020 Tessalon Perles (Benzonatate) PO Capsules 200 mg given. Allergies verified and confirmed 5 rights. Information reviewed with patient including reason for taking this medication, signs of allergic reaction and precautions. Verbalizes understanding. --15:21 05/21/20 Harsh Solis R.N. 15:21 05/21/2020 Motrin (Ibuprofen) PO Tablets 600 mg given. Allergies verified and confirmed 5 rights. Information reviewed with patient including reason for taking this medication, signs of allergic reaction and precautions. Verbalizes understanding. --15:21 05/21/20 Harsh Solis R.N. 15:38 05/21/2020 Cefdinir PO Capsules 300 mg given. Allergies verified and confirmed 5 rights. Information reviewed with patient including reason for taking this medication, signs of allergic reaction and precautions. Verbalizes understanding. --15:38 05/21/20 Harsh Solis R.N.DISPOSITION / DISCHARGE 15:48 05/21/20. Condition at departure: improved and stable. The goals identified in the patient's plan of care were met. Fall risk assessment completed. No risk factors identified. No learning barriers present. Discharge instructions provided and reviewed with the patient and spouse. Reviewed warnings. Reviewed medication(s) side effects, precautions, dosing and course information. Prescription(s) sent electronically to pharmacy. Treatments reviewed. Reviewed referral to a primary care physician. Patient and spouse verbalized understanding. Written instructions provided in Italian. The patient was discharged by the physician. She was discharged home and accompanied by spouse. She left ambulatory and via private vehicle. Spouse driving. --15:49 05/21/20 Harsh Solis R.N. 15:49 05/21/20. BP: 124/84. HR: 86. RR: 17. O2 saturation: 100%. Temp: 98.8 F. Pain level now 4/10. --15:50 05/21/20 [place] manager floralMarin ER Tech1 Departure time: 15:50 05/21/2020. --15:50 05/21/20 Harsh Solis R.N.Locked/Released at 05/21/2020 16:12 by Harsh Solis R.N. 4 Clinical Report - Nurses [facility] Emergency Department [address] [place] [address] Phone #: ext- [phone] 05/21/2020 14:45 Patient: ELISSA ALVAREZ Sex: F : 1960 Age: 59y Name Value Range Interpretation Code Description Data Alexa rce(s) Supporting Document(s) ID Date Data Source [id number] 05/21/2020 02:58:[address] [facility] 1 Clinical Report - Physicians/Mid Levels [facility] Emergency Department [address] [place] [address] Phone #: ext- [phone] 05/21/2020 14:45 Patient: ELISSA ALVAREZ Sex: F : 1960 Age: 59y Time Seen: 14:46 05/21/2020; initial patient contact. Arrived- By private vehicle. Historian- patient. Disposition decision: 15:36 05/21/2020.HISTORY OF PRESENT ILLNESS Chief Complaint: COUGH and SINUS PAIN. This started 1 weeks ago and is still present and now worse. It was gradual in onset and has been constant. The patient has had a mild cough productive of scant amounts of yellow sputum. She has had scant amounts of yellow sputum. No difficulty breathing, chest pain, fever, chills or sore throat. No hoarseness. She has had chest soreness (left lower rib w coughing). She has had moderate nasal congestion, moderate sinus pressure . Associated symptoms include sinus drainage and mild, generalized muscle aches. She has had a moderate yellow nasal discharge. She has had moderate sinus drainage with sinus pressure. She has had mild left ear pain. Additional history - The patient has had contact with a sick family member. (grandchild). They have had similar symptoms. She has had recent travel- [facility] (just returned from [place]). Similar symptoms previously. Patient has had similar symptoms occasionally. ( w sinusitis and had pneumoniae once). Recent medical care: Not recently seen/assessed.REVIEW OF SYSTEMSThe patient has had a mild, dull frontal headache. No eye discomfort, nausea, vomiting, diarrhea orabdominal pain. No hay fever, pedal edema, calf pain, difficulty with urination or skin rash. No enlargedlymph nodes, joint pain or tick bite. All other systems reviewed and are negative.PAST HISTORYSee nurses notes. Problems: Gastroesophageal Reflux Disease. Hypercholesterolemia. Spinal Stenosis. Seizure. Additional Surgeries: Hysterectomy. Medications: Topiramate Oral 150 mg, 2x a day. Omeprazole Oral (Capsule Delayed Release 20 mg) 1 capsule, daily. Atorvastatin Calcium Oral (Tablet 40 mg) 1 tablet, daily. 2 Clinical Report - Physicians/Mid Levels [facility] Emergency Department [address] [place] [address] Phone #: ext- [phone] 05/21/2020 14:45 Patient: ELISSA ALVAREZ Sex: F : 1960 Age: 59y Amitriptyline HCl Oral (Tablet 50 mg) 2 tablets, daily at bedtime. Allergies: Depakote.(rash) Meperidine and Related. (Seizure) Sulfa Antibiotics.(itching, rash).SOCIAL HISTORYFormer smoker, end date 2009. No alcohol use or drug use.ADDITIONAL NOTESThe nursing notes have been reviewed with agreement regarding the chief complaint, HPI, ROS, PMH andpatient medications and allergies.PHYSICAL EXAMVital Signs: 05/21/2020 14:47 BP: 128/100. MAP: 109. HR: 90. RR: 16. O2 saturation: 97%. Temp: 96.6F. Pain level now: 6/10. Oxygen saturation normal.Appearance: Alert. No acute distress.Head: Tenderness present to percussion/palpation of the sinuses: mild right and left frontal tenderness,maxillary tenderness.Eyes: Pupils equal, round and reactive to light. Eyes normal inspection.ENT: Left TM reveals bulging (fluid behind each TM). No erythema of the right TM. No exudate in the leftexternal auditory canal. Moderate nasal discharge present. Pharynx normal. Uvula midline.Neck: Normal inspection. Neck supple.CVS: Normal heart rate and rhythm. Heart sounds normal. Pulses normal.Respiratory: No respiratory distress. Painless inspiration. Breath sounds normal.Abdomen: Soft and nontender. No organomegaly.Back: Normal inspection.Skin: Skin warm and dry. Normal skin color. No rash. Normal skin turgor.Extremities: Extremities exhibit normal ROM. No lower extremity edema.Neuro: Oriented X 3. No motor deficit. No sensory deficit. Reflexes normal.LABS, X-RAYS, AND EKGChest X-ray: No acute disease. Views: PA and lateral. Technique: good. The X-rays were interpretedby the radiologist. Interpretation time: 15:30 05/21/2020.PROGRESS AND PROCEDURESCourse of Care: 1 5:35 05/21/20. CXR is nml; will treat for sinsusitis; pt agrees; d/c instructions given. Patient and spouse counseled in person regarding the patient's stable condition, test results, diagnosis and need for follow-up. Patient and spouse agrees with plan of care. Disposition: Condition: good and stable. Discharge decision based on the following: patient's condition is stable; patient's condition is improved; patient is ambulatory; patient is active; patient drinking fluids; patient eating; patient's pain is controlled; 3 Clinical Report - Physicians/Mid Levels [facility] Emergency Department [address] [place] [address] Phone #: ext- [phone] 05/21/2020 14:45 Patient: ELISSA ALVAREZ Sex: F : 1960 Age: 59y patient's exam is improved; no abnormal test results; improving condition on repeat evaluation; social support is good; transportation is available; follow- up is available; clinical impression is consistent with outpatient treatment.CLINICAL IMPRESSION Acute maxillary and frontal sinusitis.INSTRUCTIONS Alternate Tylenol (Acetaminophen) or Motrin (Ibuprofen) for fever, temperature greater than 102 degrees orally. Take according to label instructions. Drink plenty of fluids. Do not smoke. No alcohol. Warnings: Further evaluation is necessary. It is very important to follow up with a healthcare provider. GENERAL WARNINGS: Return or contact your physician immediately if your condition worsens or changes unexpectedly, if not improving as expected, or if other problems arise. Specifically return if pain, vomiting, bleeding, breathing difficulty or fever greater than 102 degrees F and not controlled by acetaminophen or ibuprofen worsens. Your Current Medications: Your current home medications have been reviewed. CONTINUE TAKING THE FOLLOWING MEDICATIONS: Amitriptyline HCl Oral : Tablet 50 mg, 2 tablets daily, at bedtime. Atorvastatin Calcium Oral : Tablet 40 mg, 1 tablet daily. Omeprazole Oral : Capsule Delayed Release 20 mg, 1 capsule daily. Topiramate Oral : 150 mg 2x a day. Prescription Medications: cefdinir 300 mg capsule Take 1 capsule twice a day for 10 days -- Dispense 20 capsule. Refills: 0. Substitution permitted. Pharmacy - [facility] [id number] ; [place] [address]. . Tessalon Perles 100 mg capsule Take 1 capsule three times a day for 5 days -- Dispense 15 capsule. Refills: 1. Substitution permitted. Pharmacy - [facility] [id number] ; [place] [address]. . Follow-up: Return to the emergency department as needed. Follow up with your healthcare provider in five days if not better. Call for an appointment. Reason for referral: evaluation and treatment. Summary of care provided to patient via paper. 4 Clinical Report - Physicians/Mid Levels [facility] Emergency Department [address] [place] [address] Phone #: ext- [phone] 05/21/2020 14:45 Patient: ELISSA ALVAREZ Sex: F : 1960 Age: 59y Understanding of the discharge instructions verbalized by patient. Expected course of illness, discharge instructions, activity level, diet, prescriptions x2, follow-up appointment and risks and benefits of treatment reviewed with patient and understanding verbalized. Agrees to plan of care.(Electronically signed by Adriel Briceño M.D. 05/21/2020 16:02) Name Value Range Interpretation Code Description Data Alexa rce(s) Supporting Document(s) ID Date Data Source [id number] 05/05/2020 09:47:00 AM EDT [facility] ([facility], ) Name Value Range Interpretation Code Description Data Alexa rce(s) Supporting Document(s) Pyridoxine [Mass/volume] in Serum or Plasma 5.2 ug/L 2.0-32.8 [facility] ([facility], ) Specimen Comment: Test(s) [id number] E(Alpha Tocopherol); 653075- Specimen Comment: Vitamin E(Gamma Tocopherol); 297941-Svlblhl B6; 407586- Specimen Comment: Vit. B1, Whole Blood Specimen Comment: was developed and its performance characteristics Specimen Comment: determined by [facility]. It has not been cleared or approved Specimen Comment: by the Food and Drug Administration. Thiamine [Mass/volume] in Blood 124.4 nmol/L 66.5-200.0 [facility] ([facility], ) Specimen Comment: Test(s) [id number]-Imnmvep E(Alpha Tocopherol); 371868- Specimen Comment: Vitamin E(Gamma Tocopherol); 236184-Lbvatkv B6; 968905- Specimen Comment: Vit. B1, Whole Blood Specimen Comment: was developed and its performance characteristics Specimen Comment: determined by [facility]. It has not been cleared or approved Specimen Comment: by the Food and Drug Administration. Nuclear IgG Ab [Units/volume] in Serum by Flow cytomet ry (FC) Laboratory test result [facility] ([facility], ) Specimen Comment: Test(s) [id number] E(Alpha Tocopherol); 165230- Specimen Comment: Vitamin E(Gamma Tocopherol); 177003-Kjynfrx B6; 385322- Specimen Comment: Vit. B1, Whole Blood Specimen Comment: was developed and its performance characteristics Specimen Comment: determined by [facility]. It has not been cleared or approved Specimen Comment: by the Food and Drug Administration. Topiramate [Mass/volume] in Serum or Plasma 12.1 ug/mL 2.0-25.0 [facility] ([facility], ) This test was developed and its performa nce characteristics determined by [facility]. It has not been cleared or approved by the Food and Drug Administration. Detection Limit = 1.0 Performed at: - [facility] [address] [id number] [employer] Consultant: Clayton Singer MD, Phone: [phone] Performed at: [facility] [id number] [employer] Consultant: Brie Sanchez MD, Phone: [phone] ID Date Data Source [id number] 05/05/2020 09:47:00 AM EDT [facility] ([facility], ) Name Value Range Interpretation Code Description Data Alexa rce(s) Supporting Document(s) Vitamin E(Gamma Tocopherol) 2.8 mg/L 0.5-5.5 [facility] ([facility], ) Reference intervals for alpha and gamma- tocopherol determined from National Health and Nutrition Examination Survey, 0784-8453. Individuals with alpha-tocopherol levels less than 5.0 mg/L are considered vitamin E deficient. Vitamin E(Alpha Tocopherol) 11.7 mg/L 7.0-25.1 [facility] ([facility], ) ID Date Data Source [id number] 05/05/2020 09:46:[address] [facility] ([facility], ) Name Value Range Interpretation Code Description Data Alexa rce(s) Supporting Document(s) Hemoglobin A1c 5.9 % [facility] ([facility], ) <content>REFERENCE RANGES:</content><br/ ><content></content>
<content><=5.6% NORMAL</content>
<content>5.7-6.4% SUGGESTS IMPAIRED GLUCOSE METABOLISM/PREDIABETIC</content>
<content>>= 6.5% ABNORMAL</content>
<content></content> Estimated Average Glucose 123 mg/dL 60-110 [facility] ([facility], ) ID Date Data Source [id number] 05/05/2020 09:46:00 AM EDT [facility] ([facility]) Name Value Range Interpretation Code Description Data Alexa rce(s) Supporting Document(s) Erythrocyte sedimentation rate by 2H Westergren method 18 mm/hr 0-3 0 [facility] ([facility]) ID Date Data Source [id number] 05/05/2020 09:46:00 AM EDT [facility] ([facility]) Name Value Range Interpretation Code Description Data Alexa rce(s) Supporting Document(s) White Blood Count 6.3 10 4.0-10.0 [facility] ([facility]) Red Blood Count 4.94 10 4.00-5.40 [facility] ([facility]) Hematocrit 45.2 % 36.0-47.0 [facility] ([facility]) Mean Corpuscular Volume 91.5 fl 80.0-96.0 M [facility] ([facility]) Hemoglobin 14.3 g/dL 12.0-15.5 [facility] ([facility]) Mean Corpuscular Hemoglobin 28.9 pg 27.0-33.0 [facility] ([facility]) Mean Corpuscular HGB Conc 31.6 g/dL 32.0-36.5 [facility] ([facility]) Neutrophils % 50.2 % 36.0-66.0 [facility] ([facility]) Platelet Count, Automated 311 10 150-450 [facility] ([facility]) Red Cell Distribution Width 13.0 % 11.5-14.5 [facility] ([facility]) Baca % 6.8 % 0.0-5.0 [facility] ([facility]) Eos % 4.0 % 0.0-3.0 [facility] ([facility]) Lymph % 37.7 % 24.0-44.0 [facility] ([facility]) Baso % 0.8 % 0.0-1.0 [facility] ([facility]) Nucleated Red Blood Cell % 0.0 % 0-0 [facility] ([facility]) Immature Granulocyte % 0.5 % 0-3.0 [facility] ([facility]) Neutrophils # 3.2 10 1.5-8.5 [facility] ([facility]) Lymph # 2.4 10 1.5-5.0 [facility] ([facility], ) Baca # 0.4 10 0.0-0.8 [facility] Eos # 0.3 10 0.0-0.5 [facility] Baso # 0.1 10 0.0-0.2 [facility] ([facility], ) ID Date Data Source [id number] 05/05/2020 09:46:00 AM EDT [facility] ([facility], ) Name Value Range Interpretation Code Description Data Alexa rce(s) Supporting Document(s) Rheumatoid factor [Units/volume] in Serum or Plasma Laboratory test result [facility] ([facility], ) ID Date Data Source [id number] 05/05/2020 09:46:00 AM EDT [facility] ([facility], ) Name Value Range Interpretation Code Description Data Alexa rce(s) Supporting Document(s) Vitamin B12 Level 418 pg/mL [facility] ([facility], ) VITAMIN B12 NORMAL RANGE NORMAL 247 - 911 PG/ML INDETERMINATE 211 - 246 PG/ML DEFICIENT LESS THAN 211 PG/ML Folate 7.5 ng/mL [facility] ([facility], ) FOLATE NORMAL RANGE NORMAL GREATER THAN 5.4 NG/ML INDETERMINATE 3.4-5.4 NG/ML DEFICIENT LESS THAN 3.4 NG/ML ID Date Data Source [id number] 05/05/2020 09:46:00 AM EDT [facility] ([facility], ) Name Value Range Interpretation Code Description Data Alexa rce(s) Supporting Document(s) Blood Urea Nitrogen 18 mg/dL 7-18 [facility] ([facility], ) Glucose, Fasting 99 mg/dL 70-100 [facility] ([facility], ) Creatinine For GFR 1.21 mg/dL 0.55-1.30 [facility] ([facility], ) Potassium Serum 4.2 meq/L 3.5-5.1 [facility] ([facility], ) Sodium Level 142 meq/L 136-145 [facility] ([facility], ) Glomerular Filtration Rate 48.7 [facility] ([facility], ) <content>Units are mL/min/1.73 m2</content>
<content></content>
<content>Chronic Kidney Disease Staging per NKF:</content>
<content></content>
<content>Stage I & II GFR >=60 Normal to Mildly Decreased</content>
<content>Stage III GFR 30- 59 Moderately Decreased</content>
<content>Stage IV GFR 15-29 Severely Decreased</content>
<content>Stage V GFR <15 Very Little GFR Left</content>
<content>ESRD GFR <15 on INSPECTOR BALANCE BRIDGE</content>
<content></content> Anion Gap 7 meq/L 8-16 [facility] ([facility], ) Carbon Dioxide Level 25 meq/L 21-32 [facility] ([facility]) Chloride Level 110 meq/L 98-107 [facility] ([facility]) Alt/SGPT 29 U/L 12-78 [facility] ([facility]) Calcium Level 9.5 mg/dL 8.5-10.1 [facility] ([facility], ) Ast/Sgot 14 U/L 7-37 [facility] ([facility]) Alkaline Phosphatase 169 U/L 45-117 [facility] ([facility], ) Bilirubin,Total 0.3 mg/dL 0.2-1.0 [facility] ([facility]) Total Protein 7.2 GM/DL 6.4-8.2 [facility] ([facility]) Albumin/Globulin Ratio 1.2 1.2-2.2 [facility] ([facility]) Albumin 3.9 GM/DL 3.2-5.2 [facility] ([facility]) ID Date Data Source [id number] 05/05/2020 09:46:00 AM EDT [facility] Name Value Range Interpretation Code Description Data Alexa rce(s) Supporting Document(s) HGBA1C 5.9 % N [facility] ID Date Data Source [id number] 05/05/2020 09:46:00 AM EDT [facility] Name Value Range Interpretation Code Description Data Alexa rce(s) Supporting Document(s) BG FASTING 99 mg/dL 70-100 N [facility] ID Date Data Source [id number] 05/05/2020 09:46:00 AM EDT [facility] Name Value Range Interpretation Code Description Data Alexa rce(s) Supporting Document(s) ESR 18 mm/hr 0-30 N [facility] HCT 45.2 % 36.0-47.0 N [facility] HGB 14.3 g/dL 12.0-15.5 N [facility] MCH 31.6 G/DL pg 32.0-36.5 L [facility] MCHC 28.9 PG % 27.0-33.0 N [facility] PLATELETS 311 10 10*3/mm3 150-450 N [facility] RBC 4.94 10 10*6/mm3 4.00-5.40 N [facility] RDW 13.0 % 11.5-14.5 N [facility] WBC TOTAL 6.3 4.0-10.0 N [facility] ID Date Data Source [id number] 04/28/2020 01:00:47 PM EDT [facility] Measurements & CalculationsHeight: 64 inches (5 ft. 4 in.) 162.56 cm Weight: 196.6 pounds 89.36 kg Body Mass Index (BMI): 33.87BMI Interpretation: ObeseBody Surface Area (BSA): 1.94Weight Management Education Done (Nutrition/Physical Activity)Vital SignsTemperature: 98.3F 36.83C tympanic Pulse Rate: 98 beats/minuteRespiratory Rate: 12 respirations/minuteBlood Pressure: 120/84 left arm sitting automaticO2 Saturation: 98% Vital Signs performed by: Karie Zepeda MA, April 28, 2020 1:22 PMVital Signs performed by: Karie Zepeda MA, April 28, 2020 1:22 PMInitial Intake Information From: patientRoom #: 13Infectious Disease / Travel ScreeningRecent travel for you or any close contacts? NoHave you had any close contact with anyone diagnosed with or under investigation for COVID-19 (coronavirus)? NoFever? NoRespiratory symptoms: cough, cold, congestion, shortne ss of breath, difficulty breathing? NoLoss of smell? NoLoss of taste? NoSmoking, Tobacco, Vaping or Smoke Exposure StatusSmoke Status: former smokerTobacco Use: NoDo you vape? NoPassive Smoke Exposure: NoMenstrual HistoryComments: total hysterectomy 2004Healthcare HistorySince your last office visit...Have you been admitted to the hospital? NoHave you been to an emergency room (ER) or urgent care clinic? NoHave you seen another healthcare provider? Yes - [facility] - MRI, Neurology Have you seen a dentist? Yes - NOCOIntake performed by: Karie Zepeda MA, April 28, 2020 1:06 PMRate Your HealthIn general, would you say your health is? GoodPain AssessmentAre you currently having any pain which... You would like your provider to address? Yes Affects your activity level? YesDepression Screening - PHQ-2Over the last two weeks, have you... Had little interest or pleasure in doing things? Nearly every day Been feeling down, depressed, or hopeless? Nearly every day PHQ-2 Score: 6Anxiety Screening - SENTHIL-2Over the last two weeks, have you been... Feeling nervous, anxious, or on edge? Nearly every day Unable to stop or control worrying? Nearly every day SENTHIL-2 Score: 6Food InsecurityWithin the past year...Did you worry whether your food would run out before you got money to buy more? Sometimes trueWas there a time when the food you bought didn't last and you didn't have money to get more? Sometimes trueGeneralized Anxiety Disorder 7- Item Screening (SENTHIL-7)Answer Guide:0 = Not at all1 = Several days2 = Over half the days3 = Nearly every dayOver the last 2 weeks, how often have you been bothered by the following problems?Feeling nervous, anxious, or on edge: 3Not being able to stop or control worryinWorrying too much about different things: 3Trouble relaxinBeing so restless that it's hard to sit still: 3Becoming easily annoyed or irritable: 1Feeling afraid as if something awful might happen: 3Answer Guide:0 = Not difficult at all1 = Somewhat difficult2 = Very difficult3 = Extremely difficultHow difficult have these made it for you to do your work, take care of things at home, or get along with other people? 1GAD-7 Screening Results SENTHIL-2 Score: 6GAD-7 Score: 19Functional Impairment: Somewhat difficultRecommendation: Severe anxietyPHQ-9 1. Over the last 2 weeks, patient reports the following frequency of symptoms: a. Little interest or pleasure in doing things -Nearly every day b. Feeling down, depressed, or hopeless -Nearly every day c. Trouble falling asleep, staying asleep, or sleeping too much - Nearly every day d. Feeling tired or having little energy -Nearly every day e. Poor appetite or overeating -Nearly every day f. Feeling bad about yourself, feeling that you are a failure, or feeling that you have let yourself or your family down -More than half the days g. Trouble concentrating on things such as reading the newspaper or watching television -Nearly every day h. Moving or speaking so slowly that other people could have noticed. Or being so fidgety or restless that you have been moving around a lot more than usual -Nearly every day i. Thinking that you would be better off or that you want to hurt yourself in some way -Not at all2. If you checked off any problems, how difficult have these problems made it for you to do your work, take care of things at home, or get along with other people? -Somewhat DifficultToday's P HQ-9 Results Score: 23 Severity: Severe Diagnosis Recommendation: Major Depression Functional Impairment: Somewhat DifficultPain AssessmentPain ScaleNumeric Rating Scale: 7 / 10Location: Left Lower backDuration: chronicFrequency: DailyCharacter/Quality: aching, sharp, stabbing, throbbing, pressure and stingingIs the pain radiating? YesTo what body part(s) is the pain radiating? down legs to feetScreening, Brief Intervention, & Referral to Treatment (SBIRT)Pre-Screening Questions How many times have you have 4 or more drinks in a day? 0How many times have you used an illegal drug or used a prescription medication for a non-medical reason? 0Performed by: Karie Zepeda MA, April 28, 2020 1:16 PMPatient History Medical History:spinal stenosislynphoma EpilepsySurgical History:totaly hysterectomy 2004Family History:both parents had heat issues and diabetesgrandmother- breast cancer Social/Personal History: Chief Complaintfollow-up visit cut/infected fingerHistory of Present Illness (HPI)59 YO female here for possibly infected cut. Patient states she has lower back pain and anxiety. Patient has already received a flu shot. Right index finger. A week ago. Redness, swelling and pain. No change with time. Peroxide and Neosporin with no relief. Pops open on occasion with bleeding. No fever and no chills.Ongoing issues with low back pain and anxiety. Chronic and somwehat worse lately.HPI performed by: Higinio Collazo MD, April 28, 2020 1:51 PMTransitions of Care InboundProblem ReviewProblem List was reviewed and/or updated during this visit.Medication Reconciliation & ReviewMedication List was reviewed and/or updated during this visit, including review of any [id number] medications, herbal therapies, and/or supplements.Allergy ReviewAllergy List was reviewed and/or updated during this visit.Adult Preventive CareProvider Calculated and Reviewed all Clinical Protocols for patient today. Labs/Meds/Other Counseling-Nutrition and Physical Activity:BMI Interpretation: Obese (04/28/2020) Counseling: Done (04/28/2020) Physical Activity: Done (04/28/2020)Review of Systems General: Denies chills, fever. Physical ExamGeneral Appearance: well nourished, well hydrated, no acute distressRespiratory, Auscultation: clear to auscultation bilaterally; no rales, rhonchi, or wheezesGait & Station: normalSkin, Inspection: Proximal nail fold right index finger with erythema and edema. No pointing and no fluctuance. No drainage.Orientation: oriented to time, place, and personMood & Affect: no depression, anxiety, or agitationJudgment & Insight: intactCare Management Plan Transitions of CareInboundRate Your HealthIn general, would you say your health is? GoodAssessment & Plan Problems:Added: Cellulitis of right finger (ICD- 681.02) (IXF68-W33.011) Assessment: Instructions: Keflex for 7 days.Warm soaks.Tylenol prn.Assessed:Chronic low back pain (ICD-724.2) (SUL67-O50.5) Assessment: Instructions: Chronic.Will defer discussion of this as well as chronic anxiety and depression to one month follow up due to time constraints (today was an acute visit.)Patient Instructions/Care Plan: Cellulitis of right finger: Keflex for 7 days.Warm soaks.Tylenol prn.Chronic low back pain: Chronic.Will defer discussion of this as well as chronic anxiety and depression to one month follow up due to time constraints (today was an acute visit.) Plan developed in collaboration with patient and/or familyMedications:KEFLEX 500 MG ORAL CAPSULECHLORHEXIDINE GLUCONATE 0.12 % SOLNCHLORHEXIDINE GLUCONATE 0.12 % SOLNALPRAZOLAM 0.25 MG ORAL TABLETNORTRIPTYLINE HCL 25 MG ORAL CAPSULETOPAMAX 100 MG ORAL TABLETTOPAMAX 50 MG ORAL TABLETATORVASTATIN CALCIUM 40 MG ORAL TABLETOMEPRAZOLE 20 MG ORAL CAPSULE DELAYED RELEASEMedication Changes:New Prescription:KEFLEX 500 MG ORAL CAPSULE-One po tid Qty: 21[Capsule] Refills: 0 Method: ElectronicAllergies:DEMEROL (MEPERIDINE HCL) (Critical)DEPAKOTE (Critical)SEPTRA (Critical)* SULFA ANTIBIOTICS (Critical)Orders:Adult - Ofc Vst, EST, Level III [CPT-25978] Medications:KEFLEX 500 MG ORAL CAPSULE (CEPHALEXIN) One po tid #21[Capsule] x 0 Route:ORAL Entered and Authorized by: Higinio Collazo MD Method used: Electronically to [facility] (retail) [address] [place] [address] Note to Pharmacy: Route: ORAL; RxID: [id number] signed by Higinio Collazo MD on 04/28/2020 at 2:04 PM Name Value Range Interpretation Code Description Data Alexa rce(s) Supporting Document(s) ID Date Data Source [id number] 04/16/2020 12:46:03 PM EDT [facility] Current Problems: Mammography abnormal ( ICD-793.80) (DHP70-P37.8)Lumbar radiculopathy (ICD-724.4) (BPL55-D18.16)Localization-related (focal) (partial) symptomatic epilepsy and epileptic syndromes with simple partial seizures, intractable, without status epilepticus (PXT84-E67.119)Other constipation (NAJ47-Z12.09)Mixed hyperlipidemia (BHC35-D43.2)Chronic low back pain (ICD- 724.2) (NTM39-C62.5)Problem list reviewed during this update.Current Medications: CHLORHEXIDINE GLUCONATE 0.12 % SOLN (CHLORHEXIDINE GLUCONATE) Rinse for 1 minute with 10mL before bed; Route: MOUTH/THROATALPRAZOLAM 0.25 MG ORAL T ABLET (ALPRAZOLAM) One po one hour before MRI. MDD 1.; Route: ORALNORTRIPTYLINE HCL 25 MG ORAL CAPSULE (NORTRIPTYLINE HCL) take 4 caps by mouth at bedtime; Route: ORALTOPAMAX 100 MG ORAL TABLET (TOPIRAMATE) one tab twice a day; Route: ORALTOPAMAX 50 MG ORAL TABLET (TOPIRAMATE) one tab twice a day; Route: ORALATORVASTATIN CALCIUM 40 MG ORAL TABLET (ATORVASTATIN CALCIUM) one tab by mouth daily; Route: ORALOMEPRAZOLE 20 MG ORAL CAPSULE DELAYED RELEASE (OMEPRAZOLE) one cap every day; Route: ORALMedication list reviewed during this update.Current Allergies: DEMEROL (MEPERIDINE HCL) (Critical)DEPAKOTE (Crit ical)SEPTRA (Critical)* SULFA ANTIBIOTICS (Critical)Allergy list reviewed during this update. Dental Chart: Procedures:Type - CDT Code - Description B - (D0140) Limited oral evaluation - problem focused on Tooth # 4 (Performed by Ayaka Morales DMD) B - (D0220) Intraoral, periapical, first radiographic image on Tooth # 4 (Performed by Ayaka Morales DMD) Existing:Type - CDT Code - Description[E] Bridge - Abutment On #4, #6[E] Bridge - Pontic On #5 Chart Notes:minerva (Apr 16 2020 2:59PM): Additional PPE requirements due to COVID-19 in the dental setting, N95, surgical mask, hair covering, gown and shield. Had to Wait 45 min. for the front getting med history since checked in. still not in.S: CC:" I have a swollen gum on my upper right and it might be because of my bridge. I got a chip stuck in there and it might be because of that"O: RMHx (-)Per Pt. allergy to , demeral, depacoat septra and sulfa drugs HPI: last night PL: 5 BP: 128/95 P: 86, PA 4-6, Bridge, gum area inflammed, possible trauma to the buccal area of #4A: DDS recommends chlorhexadine and monojet syringe to rinse the area , DX:traumaP:Prescribe chlorhexadine follow up in 2 week if neededE-scribe Chlorhexadine Informed Pt about new pain management policy of the clinic regarding about narcotic,told pt to alternate Ibuprophen 600- 800mg and tylenol 500mg every 4 to 6 hrs for pain when needed. Assisted By: PD [place]: Ayaka Verma DMD by minerva (04/16/2020 2:59 PM): Tooth Notes and Watches: Assessment & Plan Medications:CHLORHEXIDINE GLUCONATE 0.12 % SOLNALPRAZOLAM 0.25 MG ORAL TABLETNORTRIPTYLINE HCL 25 MG ORAL CAPSULETOPAMAX 100 MG ORAL TABLETTOPAMAX 50 MG ORAL TABLETATORVASTATIN CALCIUM 40 MG ORAL TABLETOMEPRAZOLE 20 MG ORAL CAPSULE DELAYED RELEASEMedication Changes:New Prescription:CHLORHEXIDINE GLUCONATE 0.12 % SOLN-Rinse for 1 minute with 10mL before bed Qty: 1 Refills: 0 Method: Allergies:DEMEROL (MEPERIDINE HCL) (Critical)DEPAKOTE (Critical)SEPTRA (Critical)* SULFA ANTIBIOTICS (Critical) Name Value Range Interpretation Code Description Data Alexa rce(s) Supporting Document(s) ID Date Data Source [id number] 03/30/2020 12:00:00 AM EDT [facility] Higinio Collazo MD Patient Name: ELISSA [id number] [facility] Date of : 1960[place] [address] Date of Exam: 03/30/2020#: Fax: [phone] EXAM: MRI LUMBAR SPINE WITHOUT CONTRASTPROCEDURE INFORMATION:Exam: MR Lumbar Spine Without Contrast.Exam date and time: 03/30/2020 8:00 AM Age: 59 years oldClinical indication: Low back painTECHNIQUE: Imaging protocol: Multiplanar magnetic resonance images of thelumbar spine without intravenous contrast.COMPARISON: No relevant prior studies available.FINDINGS:Vertebrae: Unremarkable.Spinal cord: Normal signal. No cord compression.L1-L2: No significant disc disease. No significant spinal canal stenosis.No neural foraminal stenosis. L2-L3: There is disc desiccation. There is asuperimposed right foraminal disc herniation. There is moderate right-sidedneuroforaminal narrowing.L3-L4: There is degenerative disc disease including disc space narrowingand dessication. There is mild disc bulging. Disc bulging extends into bothneural foramen causing mild bilateral neural foraminal narrowing, rightworse than left. There is facet arthropathy and ligamentum flavumhypertrophy. There is mild spinal canal stenosis.L4-L5: There is mild disc bulging. Disc bulging extends into both neuralforamen causing mild bilateral neural foraminal narrowing. There is facetarthropathy and ligamentum flavum hypertrophy. There is mild/moderatespinal canal stenosis.L5-S1: There is mild disc bulging. There is a posterior annular tear. Discbulging extends into both neural foramen causing mild bilateral neuralforaminal narrowing.Soft tissues: Unremarkable.IMPRESSION: Multilevel degenerative changes causing variable degrees ofspinal canal and neuroforaminal narrowing as described above. Rightforaminal disc herniation at L2/3. Please see details above. InThank you for allowing us to participate in the care of your patient.Dictated and Authenticated by: Zack Mka MD 03/30/2020 9:01 AM [facility] ( & Jose)ElaineV/Ivy marx for referring ELISSA ALVAREZ to our office. Electronically Signed - ELAINE 03/30/20 9:05 Name Value Range Interpretation Code Description Data Alexa rce(s) Supporting Document(s) ID Date Data Source [id number] 03/19/2020 08:51:43 AM EDT [facility] Measurements & CalculationsHeight: 64 inches (5 ft. 4 in.) 162.56 cm Weight: 196 pounds 89.09 kg Body Mass Index (BMI): 33.76BMI Interpretation: ObeseBody Surface Area (BSA): 1.94Weight Management Education Done (Nutrition/Physical Activity)Vital SignsTemperature: 98.1FPulse Rate: 88 beats/minuteRespiratory Rate: 16 respirations/minuteBlood Pressure: 102/72 O2 Saturation: 97% Vital Signs performed by: Josefina Terrazas MA, March 19, 2020 8:53 AMInitial Intake Information From: patientRoom #: 15Infectious Disease / Travel ScreeningRecent travel for you or any close contacts? NoHave you had any close contact with anyone diagnosed with or under investigation for COVID-19 (coronavirus)? NoFever? NoRespiratory symptoms: cough, cold, congestion, shortness of breath, difficulty breathing? NoLoss of smell? NoLoss of taste? NoSmoking, Tobacco, Vaping or Smoke Exposure StatusTobacco Use: NoDo you vape? NoMenstrual HistoryAny possibility of ? NoHealthcare HistorySince your last office visit...Have you been admitted to the hospital? NoHave you been to an emergency room (ER) or urgent care clinic? NoHave you seen another healthcare provider? NoHave you seen a dentist? NoIntake performed by: Josefina Terrazas MA, March 19, 2020 8:52 AMRate Your HealthIn general, would you say your health is? GoodPain AssessmentAre you currently having any pain which... You would like your provider to address? No Affects your activity level? NoDepression Screening - PHQ-2Over the last two weeks, have you... Had little interest or pleasure in doing things? Not at all Been feeling down, depressed, or hopeless? Not at all PHQ-2 Score: 0Anxiety Screening - SENTHIL-2Over the last two weeks, have you been... Feeling nervous, anxious, or on edge? Not at all Unable to stop or control worrying? Not at all SENTHIL-2 Score: 0Screening, Brief Intervention, & Referral to Treatment (SBIRT)Pre-Screening Questions How many times have you have 4 or more drinks in a day? 0How many times have you used an illegal drug or used a prescription medication for a non- medical reason? 0Performed by: Josefina Terrazas MA, March 19, 2020 8:52 AMPatient History Medical History:spinal stenosislynphoma EpilepsySurgical History:totaly hysterectomy 2004Family History:both parents had heat issues and diabetesgrandmother- breast cancer Social/Personal History: Chief Complaintlab resultsHistory of Present Illness (HPI)Doing well. Still has not heard from the neurologist or GI yet.Having left breast pain, burning, for the past few months. No worse and no better with time.No worse with exertion. No chest pressure. Non radiaiting.Otherwise feeling well.Labs look good except for elevated alk phos.HDL is 64.HPI performed by: Higinio Collazo MD, March 19, 2020 9:00 AMProblem ReviewProblem List was reviewed and/or updated during this visit.Medication Reconciliation & ReviewMedication List was reviewed and/or updated during this visit, including review of any xpse-uln-wkmbmcp medications, herbal therapies, and/or supplements.Allergy ReviewAllergy List was reviewed and/or updated during this visit.Adult Preventive CareProvider Calculated and Reviewed all Clinical Protocols for patient today. Labs/Meds/Other Counseling-Nutrition and Physical Activity:BMI Interpretation: Obese (03/19/2020) Counseling: Done (03/19/2020) Physical Activity: Done (03/19/2020)Cancer Screening Mammogram Reviewed: Previous Comments: 2 years ago in [place] report scanned (02/06/2020)Pap Smear/HPV TestingReviewed: Previous Comments: total hysterectomy ( 0)ColonoscopyReviewed:Previous Comments: would like referral last one done in [place] (02/06/2020)Review of Systems General: Denies dizziness, fatigue. Cardiovascular: Denies chest pain, palpitations, feeling faint. Respiratory: Denies difficulty breathing. Physical ExamGeneral Appearance: well nourished, well hydrated, no acute distressRespiratory, Auscultation: clear to auscultation bilaterally; no rales, rhonchi, or wheezesRespiratory, Effort: no intercostal retractions or use of accessory musclesCardiovascular, Auscultation: S1, S2 audible; no murmur, rub, or gallop; RRRPeripheral Circulation: no clubbing, cyanosis, edema, or varicositiesGait & Station: normalSkin, Inspection: no rashes, lesions, or ulcerationsOrientation: oriented to time, place, and personMood & Affect: no depression, anxiety, or agitationJudgment & Insight: intactRate Your HealthIn general, would you say your health is? GoodAssessment & Plan Problems:Added: Mammography abnormal (ICD-793.80) (EZS12-W05.8) Assessment: Instructions: Area of concern on left upper outer breast 2 years ago on mammogram but read as likely benign. Report on chart.Left breast pain for 2 months. Inlikely cardiac. Will await result of mammogram and make further decisions based on this.Will set up a mammogram.Assessed:Mixed hyperlipidemia (PIZ14-N67.2) Assessment: Instructions: On Lipitor and this seems to be working.Slightly elevated Alk Phos. Asymptomatic. Of unknown clinical signficiance.Recheck this in 6 months with visit with me after.Patient Instructions/Care Plan: Mammography abnormal: Area of concern on left upper outer breast 2 years ago on mammogram but read as likely benign. Report on chart.Left breast pain for 2 months. Inlikely cardiac. Will await result of mammogram and make further decisions based on this.Will set up a mammogram.Mixed hyperlipidemia: On Lipitor and this seems to be working.Slightly elevated Alk Phos. Asymptomatic. Of unknown clinical signficiance.Recheck this in 6 months with visit with me after. Plan developed in collaboration with patient and/or familyMedications:NORTRIPTYLINE HCL 25 MG ORAL CAPSULETOPAMAX 100 MG ORAL TABLETTOPAMAX 50 MG ORAL TABLETATORVASTATIN CALCIUM 40 MG ORAL TABLETOMEPRAZOLE 20 MG ORAL CAPSULE DELAYED RELEASEAllergies:DEMEROL (MEPERIDINE HCL) (Critical)DEPAKOTE (Critical)* SULFA ANTIBIOTICS (Critical)Orders:Adult - Ofc Vst, EST, Level III [CPT-23531] Mammography - Diagnostic- Bilateral; including CAD [CPT-76381] Ultrasound, breast, unilateral; complete [CPT-78058] COMP METABOLIC PANEL [CPT-88997] TSH [CPT-99995] LIPID PANEL [CPT-78846] Electro nically signed by Higinio Collazo MD on 03/19/2020 at 9:37 AM Name Value Range Interpretation Code Description Data Alexa rce(s) Supporting Document(s) ID Date Data Source [id number] 03/11/2020 08:21:24 AM EDT [facility] Labs In-House Blood TestsDate/Time Colle cted: March 11, 2020 7:55 AMTest Result Reference Range Normal ValueComments: taken from right ac, tolerated well.Yas Vargas, March 11, 2020 8:22 AMAssessment & Plan Orders:[id number] Vst-Est Level I [CPT-66128] 57997 - Venipuncture [CPT-16120] Name Value Range Interpretation Code Description Data Alexa rce(s) Supporting Document(s) ID Date Data Source [id number] 03/11/2020 07:55:00 AM EDT [facility] Name Value Range Interpretation Code Description Data Alexa rce(s) Supporting Document(s) BG FASTING 98 mg/dL 70-100 [address] [facility] TSH 2.690 microintl units/mL 0.358-3.740 [address] [facility] ID Date Data Source [id number] 02/06/2020 08:33:19 AM EDT [facility] Measurements & CalculationsHeight: 64 inches (5 ft. 4 in.) 162.56 cm Weight: 190 pounds 86.36 kg Body Mass Index (BMI): 32.73BMI Interpretation: ObeseBody Surface Area (BSA): 1.92Weight Management Education Done (Nutrition/Physical Activity)Vital SignsTemperature: 98.7FPulse Rate: 95 beats/minuteRespiratory Rate: 18 respirations/minuteBlood Pressure: 122/86 O2 Saturation: 98% Vital Signs performed by: Josefina Terrazas MA, February 06, 2020 8:48 AMInitial Intake Information From: patientRoom #: 14Infectious Disease / Travel ScreeningRecent travel for you or any close contacts? NoHave you had any close contact with anyone diagnosed with or under investigation for COVID-19 (coronavirus)? NoFever? NoRespiratory symptoms: cough, cold, congestion, shortness of breath, difficulty breathing? NoLoss of smell? NoLoss of taste? NoSmoking, Tobacco, Vaping or Smoke Exposure StatusSmoke Status: former smokerTobacco Use: NoDo you vape? NoMenstrual HistoryAny possibility of ? NoComments: total hysterectomy 2004Healthcare HistorySince your last office visit...Have you been admitted to the hospital? NoHave you been to an emergency room (ER) or urgent care clinic? NoHave you seen another healthcare provider? NoHave you seen a dentist? NoIntake performed by: Josefina Terrazas MA, February 06, 2020 8:45 AMRate Your HealthIn general, would you say your health is? FairPain AssessmentAre you currently having any pain which... You would like your provider to address? No Affects your activity level? NoDepression Screening - PHQ-2Over the last two weeks, have you... Had little interest or pleasure in doing things? Not at all Been feeling down, depressed, or hopeless? Not at all PHQ-2 Score: 0Anxiety Screening - SENTHIL-2Over the last two weeks, have you been... Feeling nervous, anxious, or on edge? Not at all Unable to stop or control worrying? Not at all SENTHIL-2 Score: 0PRAPARE Sociodemographic Characteristics Race: or Ethnicity: or Preferred Language: EnglishScreening, Brief Intervention, & Referral to Treatment (SBIRT)Pre-Screening Questions How many ti mes have you have 4 or more drinks in a day? 0How many times have you used an illegal drug or used a prescription medication for a non-medical reason? 0Performed by: Josefina Terrazas MA, February 06, 2020 8:45 AMPatient History Medical History:spinal stenosislynphoma EpilepsySurgical History:totaly hysterectomy 2004Family History:both parents had heat issues and diabetesgrandmother- breast cancer Social/Personal History: Chief Complaintestablish care History of Present Illness (HPI)would like referral to pain center also needs a colonoscopy referral Had a FIT test last year that was negative but she would like a colonoscopy.Chronic low back pain for which she was getting injections at the pain clinic in [place]. Spinal stenosis and lipomatosis. Injections were helping. Has been on medications in the past but she did not like how they made her feel. Numbness in left leg. Chronic and unchanged. No saddle anesthesia.Recently broke foot. Seeing Ortho for this.Problems over the past month with constipation. Not having BMs as often as she used to and they are hard to pass. No relief with monica softener. No better and no worse with time.HPI performed by: Higinio Collazo MD, February 06, 2020 8:51 AMProblem ReviewProblem List was reviewed and/or updated during this visit.Medication Reconciliation & ReviewMedication List was reviewed and/or updated during this visit, including review of any bcpm-gof-avodbrf m edications, herbal therapies, and/or supplements.Allergy ReviewAllergy List was reviewed and/or updated during this visit.Adult Preventive CareProvider Calculated and Reviewed all Clinical Protocols for patient today. Labs/Meds/Other Counseling-Nutrition and Physical Activity:BMI Interpretation: Obese (02/06/2020) Counseling: Done (02/06/2020) Physical Activity: Done (02/06/2020)Cancer Screening Mammogram Reviewed: Today's Comments[place] report scannedPap Smear/HPV TestingReviewed: Today's Comments: total hysterectomy ColonoscopyReviewed:Today's Comments: [facility] General: Denies dizziness, fatigue, headache. Cardiovascular: Denies chest pain. Respiratory: Denies difficulty breathing, shortness of breath. Gastrointestinal: Complains of constipation, change in bowel habits. Denies diarrhea, bloody diarrhea, blood in stool, black or tarry stools. Physical ExamGeneral Appearance: well nourished, well hydrated, no acute distressRespiratory, Auscultation: clear to auscultation bilaterally; no rales, rhonchi, or wheezesRespiratory, Effort: no intercostal retractions or use of accessory musclesCardiovascular, Auscultation: S1, S2 audible; no murmur, rub, or gallop; RRRPeripheral Circulation: no clubbing, cyanosis, edema, or varicositiesGait & Station: normalSkin, Inspection: no rashes, lesions, or ulcerationsOrientation: oriented to time, place, and personMood & Affect: no depression, anxiety, or agitationJudgment & Insight: intactRate Your HealthIn general, would you say your health is? FairAssessment & Plan Problems:Added: Mixed hyperlipidemia (OPH50-R80.2)Chronic low back pain (ICD-724.2) (ICD10- M54.5) Assessment: Instructions: Refer to pain clinic.I am somewhat concerned about the new onset constipation so I am ordering an MRI.Other constipation (YMF62-Y36.09) Assessment: Instructions: Posssibly due to dietary changes since the move here but with the chronic LBP and spinal stenosis I am ordering an open MRI (claustrophobic.)Patient Instructions/Care Plan: Chronic low back pain: Refer to pain clinic.I am somewhat concerned about the new onset constipation so I am ordering an MRI.Other constipation: Posssibly due to dietary changes since the move here but with the chronic LBP and spinal stenosis I am ordering an open MRI (claustrophobic.) Plan developed in collaboration with patient and/or familyMedications:NORTRIPTYLINE HCL 25 MG ORAL CAPSULETOPAMAX 100 MG ORAL TABLETTOPAMAX 50 MG ORAL TABLETATORVASTATIN CALCIUM 40 MG ORAL TABLETOMEPRAZOLE 20 MG ORAL CAPSULE DELAYED RELEASEMedication Changes:Added: OMEPRAZOLE 20 MG ORAL CAPSULE DELAYED RELEASE-one cap every dayATORVASTATIN CALCIUM 40 MG ORAL TABLET-one tab by mouth dailyTOPAMAX 50 MG ORAL TABLET-one tab twice a dayTOPAMAX 100 MG ORAL TABLET-one tab twice a dayNORTRIPTYLINE HCL 25 MG ORAL CAPSULE-take 4 caps by mouth at bedtimeAllergies:DEMEROL (MEPERIDINE HCL) (Critical)DEPAKOTE (Critical)* SULFA ANTIBIOTICS (Critical)Orders:Adult - Ofc Vst, NEW, Level III [CPT-88569] COMP METABOLIC PANEL [CPT-88889] LIPID PANEL [CPT-12096] TSH [CPT-35552] MRI SPINAL CANAL LUMBAR W/O CONTRAST MATERIAL [CPT-47864] Name Value Range Interpretation Code Description Data Alexa rce(s) Supporting Document(s) ID Date Data Source [id number] 01/13/2020 11:51:[address] [facility] Patient: ELISSA ALVAREZ Observation Re port - [facility].VisitID: [id number] [place] [address] [phone], FRegistration Date/Time: 01/12/2020 14:53 Weight:81.6 kg (S). Height/Length:64 inches (S). BMI:30.9 FAMILY HISTORYPaternal grandmother: Cancer. Mother: Diabetes Mellitus. Brother(s): Heart Disease. INSTRUCTIONSYour Current Medications: Your current home medications have been reviewed. CONTINUE TAKING THE FOLLOWING MEDICATIONS:"a statin for cholesterol"* : daily, Last: 01/12/2020. Nortriptyline HCl Oral : unknown dose daily, Last: 01/11/2020, every PM, 3 capsules. Topiramate ER Oral : 350mg 2x a day, Last: 01/12/2020. (Electronically signed by Chacho Houston, P.AMarlin 01/12/2020 18:45) Weight:81.6 kg (S). Height/Length:64 inches (S). BMI:30.9 (Electronically signed by Alexx Car, P.AMarlin 01/13/2020 11:36) Addenda for ELISSA ALVAREZ VisitID: [id number] Date: 01/12/2020 01/13/2020 11:49Norco 5 mg-325 mg tablet Take 1 tablet every four hours as needed for pain for 1 days -- Dispense 6 tablet. Refills: 0. Substitution permitted.Pharmacy - [id number], [place] [phone]. . [facility]ieent [facility] , I had to resend it to [facility].(Electronically sign ed by Alexx Car - 01/13/2020 11:49) Name Value Range Interpretation Code Description Data Alexa rce(s) Supporting Document(s) ID Date Data Source [id number] 01/13/2020 11:45:00 AM EDT [facility] Patient: ELISSA ALVAREZ [facility] [id number] [place] [address] [phone], FRegistration Date/Time: 01/12/2020 14:53 Weight:81.6 kg (S). Height/Length:64 inches (S). BMI:30.9 FAMILY HISTORYPaternal grandmother: Cancer. Mother: Diabetes Mellitus. Brother(s): Heart Disease. INSTRUCTIONSYour Current Medications: Your current home medications have been reviewed. CONTINUE TAKING THE FOLLOWING MEDICATIONS:"a statin for cholesterol"* : daily, Last: 01/12/2020. Nortriptyline HCl Oral : unknown dose daily, Last: 01/11/2020, every PM, 3 capsules. Topiramate ER Oral : 350mg 2x a day, Last: 01/12/2020. (Electronically signed by Chacho Houston P.A. 01/12/2020 18:45) Weight:81.6 kg (S). Height/Length:64 inches (S). BMI:30.9 (Electronically signed by Alexx Car P.A. 01/13/2020 11:36) Name Value Range Interpretation Code Description Data Alexa rce(s) Supporting Document(s) ID Date Data Source [id number] 01/12/2020 06:47:00 PM EDT [facility] Patient: ELISSA ALVAREZ Observation Re port - [facility].VisitID: [id number] [place] [address] [phone], FRegistration Date/Time: 01/12/2020 14:53 Weight:81.6 kg (S). Height/Length:64 inches (S). BMI:30.9 FAMILY HISTORYPaternal grandmother: Cancer. Mother: Diabetes Mellitus. Brother(s): Heart Disease. INSTRUCTIONSYour Current Medications: Your current home medications have been reviewed. CONTINUE TAKING THE FOLLOWING MEDICATIONS:"a statin for cholesterol"* : daily, Last: 01/12/2020. Nortriptyline HCl Oral : unknown dose daily, Last: 01/11/2020, every PM, 3 capsules. Topiramate ER Oral : 350mg 2x a day, Last: 01/12/2020. (Electronically signed by Chacho Houston P.A. 01/12/2020 18:45) Name Value Range Interpretation Code Description Data Alexa rce(s) Supporting Document(s) ID Date Data Source [id number] 01/12/2020 04:44:00 PM EDT [facility] DATE OF EXAMINATION: 01/12/2020 15:39 EDT HISTORY: Injury pain TECHNIQUE: 4 views of the right ankle were obtained FINDINGS: No evidence of acute fracture or dislocation. Ankle mortise and talar dome areintact with normal alignment. No aggressive osseous lesions or erosions. Bonemineral density is unremarkable. Visualized soft tissues are normal. IMPRESSION: Small plantar calcaneal spur. Electronically signed in [facility] by: Shayan Morales M.D. 01/12/2020 16:17 EDT Name Value Range Interpretation Code Description Data Alexa e(s) Supporting Document(s) ID Date Data Source [id number] 01/12/2020 04:44:00 PM EDT [facility] DATE OF EXAMINATION: 01/12/2020 15:32 EDT HISTORY: Injury pain TECHNIQUE: 5 views of the left ankle were obtained FINDINGS: Chip fracture along the dorsum of the navicular is noted. Bones arewell-mineralized and properly aligned. IMPRESSION: Chip fracture along the dorsum of the navicular. Electronically signed in [facility] by: Shayan Morales M.D. 01/12/2020 16:17 EDT Name Value Range Interpretation Code Description Data Alexa rce(s) Supporting Document(s) ID Date Data Source [id number] 01/12/2020 04:44:00 PM EDT [facility] DATE OF EXAMINATION: 01/12/2020 15:32 EDT TECHNIQUE: 4 views of the left foot were obtained. HISTORY: Twisting injury FINDINGS: Chip fracture along the dorsum of the navicular bone is noted with overlyingsoft tissue edema. Alignment is normal. No aggressive osseous lesions orerosions. Bone mineral density is unremarkable. Visualized soft tissues arenormal. IMPRESSION: Moderate osteoarthritis. Small to moderate-sized plantar calcaneal spur. Acute chip fracture along the dorsum of the navicular bone. Electronically signed in PS[facility] by: Shayan Morales M.D. 01/12/2020 16:16 EDT Name Value Range Interpretation Code Description Data Alxea rce(s) Supporting Document(s) Procedure Social History Code Duration Value Status Description Data Source(s ) Smoking 08/26/2020 12:00:00 AM EST Never Smoker completed Never S moker eCW1 ([facility]) Vital Signs ID Date Data Source UNK Name Value Range Interpretation Code Description Data Source(s) Body height 64 [in_i] 64 [in_i] LOULOU ([facility]) Diastolic blood pressure 84 mm[Hg] 84 mm[Hg] eCW1 ([facility]) Systolic blood pressure 139 mm[Hg] 139 mm[Hg] e CW1 ([facility]) Body temperature 99.1 [degF] 99.1 [degF] eCW1 ( [facility]) Respiratory rate 18 /min 18 /min eCW1 ([facility]) Heart rate 85 /min 85 /min W1 ([facility]) Body mass index (BMI) [Ratio] 35.39 kg/m2 35.39 kg/m2 [facility] ([facility]) Body height 64 [in_i] 64 [in_i] eCW1 ([facility]) Body weight 206.2 [lb_av] 206.2 [lb_av] eCW1 ([facility]) Body weight 3328 [oz_av] 3328 [oz_av] LOULOU ([facility]) Systolic blood pressure 119 mm[Hg] 119 mm[Hg] A THENA ([facility]) Body mass index (BMI) [Ratio] 35.7 kg/m2 35.7 k g/m2 [place] ([facility]) Body height 64 [in_i] 64 [in_i] LOULOU ([facility]) Diastolic blood pressure 82 mm[Hg] 82 mm[Hg] LOULOU ([facility]) Body weight 3328 [oz_av] 3328 [oz_av] LOULOU ([facility]) Systolic blood pressure 119 mm[Hg] 119 mm[Hg] A THENA ([facility]) Body mass index (BMI) [Ratio] 35.7 kg/m2 35.7 k g/m2 LOULOU ([facility]) Body height 64 [in_i] 64 [in_i] LOULOU ([facility]) Diastolic blood pressure 82 mm[Hg] 82 mm[Hg] LOULOU ([facility]) Body weight 3328 [oz_av] 3328 [oz_av] LOULOU ([facility]) Systolic blood pressure 119 mm[Hg] 119 mm[Hg] A [facility] ([facility]) Body mass index (BMI) [Ratio] 35.7 kg/m2 35.7 k g/m2 LOULOU ([facility]) Body height 64 [in_i] 64 [in_i] LOULOU ([facility]) Diastolic blood pressure 82 mm[Hg] 82 mm[Hg] LOULOU ([facility]) Body weight 3172 [oz_av] 3172 [oz_av] LOULOU ([facility]) Systolic blood pressure 163 mm[Hg] 163 mm[Hg] A THENA ([facility]) Body mass index (BMI) [Ratio] 34 kg/m2 34 kg/ m2 LOU[place]OU ([facility]) Body height 64 [in_i] 64 [in_i] LOULOU ([facility]) Diastolic blood pressure 91 mm[Hg] 91 mm[Hg] LOULOU ([facility]) Body weight 3172 [oz_av] 3172 [oz_av] LOULOU ([facility]) Systolic blood pressure 163 mm[Hg] 163 mm[Hg] A THENA ([facility]) Body mass index (BMI) [Ratio] 34 kg/m2 34 kg/ m2 LOULOU ([facility]) Body height 64 [in_i] 64 [in_i] LOULOU ([facility]) Diastolic blood pressure 91 mm[Hg] 91 mm[Hg] LOULOU ([facility]) Body weight 3172 [oz_av] 3172 [oz_av] LOULOU ([facility]) Systolic blood pressure 163 mm[Hg] 163 mm[Hg] A THENA ([facility]) Body mass index (BMI) [Ratio] 34 kg/m2 34 kg/ m2 LOULOU ([facility]) Body height 64 [in_i] 64 [in_i] LOULOU ([facility]) Diastolic blood pressure 91 mm[Hg] 91 mm[Hg] LOULOU ([facility]) Body weight 89.813 kg 89.813 kg MEDENT ([facility], ) [place] body weight 120 [lb_av] 120 [lb_av] MEDEN T ([facility], ) Body mass index (BMI) [Ratio] 34.0 kg/m2 34.0 k g/m2 MEDENT ([facility], ) Body weight 198.00 [lb_av] 198.00 [lb_av] MEDEN T ([facility], ) Body height 64 [in_i] 64 [in_i] MEDENT ([facility], ) 5'4" Diastolic blood pressure 78 mm[Hg] 78 mm[Hg] MEDENT ([facility], ) Systolic blood pressure 132 mm[Hg] 132 mm[Hg] M EDENT ([facility], ) [place] body weight 120 [lb_av] 120 [lb_av] MEDEN T ([facility]) Body mass index (BMI) [Ratio] 33.5 kg/m2 33.5 k g/m2 MEDENT ([facility]) Body weight 195.00 [lb_av] 195.00 [lb_av] MEDEN T ([facility]) Body height 64 [in_i] 64 [in_i] MEDENT ([facility]) 5'4" Respiratory rate 14 /min 14 /min MEDENT ( [facility]) Heart rate 94 /min 94 /min MEDENT ([facility]) Diastolic blood pressure 85 mm[Hg] 85 mm[Hg] MEDENT ([facility]) Systolic blood pressure 130 mm[Hg] 130 mm[Hg] M EDENT ([facility]) Body weight 3145.6 [oz_av] 3145.6 [oz_av] ATHEN A ([facility]) Systolic blood pressure 120 mm[Hg] 120 mm[Hg] A THENA ([facility]) Body mass index (BMI) [Ratio] 33.87 kg/m2 33.87 kg/m2 LOULOU ([facility]) Body height 64 [in_i] 64 [in_i] LOULOU ([facility]) Diastolic blood pressure 84 mm[Hg] 84 mm[Hg] LOULOU ([facility]) Body weight 3136 [oz_av] 3136 [oz_av] LOULOU ([facility]) Systolic blood pressure 102 mm[Hg] 102 mm[Hg] A [facility] ([facility]) Body mass index (BMI) [Ratio] 33.76 kg/m2 33.76 kg/m2 LOULOU ([facility]) Body height 64 [in_i] 64 [in_i] LOULOU ([facility]) Diastolic blood pressure 72 mm[Hg] 72 mm[Hg] LOULOU ([facility]) Body weight 3136 [oz_av] 3136 [oz_av] LOULOU ([facility]) Systolic blood pressure 102 mm[Hg] 102 mm[Hg] A [facility] ([facility]) Body height 64 [in_i] 64 [in_i] LOULOU ([facility]) Diastolic blood pressure 72 mm[Hg] 72 mm[Hg] LOULOU ([facility]) Body weight 3136 [oz_av] 3136 [oz_av] LOULOU ([facility]) Systolic blood pressure 102 mm[Hg] 102 mm[Hg] [facility] Body height 64 [in_i] 64 [in_i] LOULOU ([facility]) Diastolic blood pressure 72 mm[Hg] 72 mm[Hg] LOULOU ([facility]) Body weight 3040 [oz_av] 3040 [oz_av] LOULOU ([facility]) Systolic blood pressure 122 mm[Hg] 122 mm[Hg] A [facility] ([facility]) Body mass index (BMI) [Ratio] 32.73 kg/m2 32.73 kg/m2 LOULOU ([facility]) Body height 64 [in_i] 64 [in_i] LOULOU ([facility] [facility] Diastolic blood pressure 86 mm[Hg] 86 mm[Hg] [facility] ([facility]) Body weight 3040 [oz_av] 3040 [oz_av] [facility] ([facility]) Systolic blood pressure 122 mm[Hg] 122 mm[Hg] A [facility] ([facility]) Body height 64 [in_i] 64 [in_i] [facility] ([facility]) Diastolic blood pressure 86 mm[Hg] 86 mm[Hg] [facility] ([facility]) Body weight 3040 [oz_av] 3040 [oz_av] [facility] ([facility]) Systolic blood pressure 122 mm[Hg] 122 mm[Hg] A [facility] ([facility]) Body height 64 [in_i] 64 [in_i] [facility] ([facility]) Diastolic blood pressure 86 mm[Hg] 86 mm[Hg] [facility] ([facility]) Patient Treatment Plan of Care Planned Activity Planned Date Details Description Data Source (s) Diazepam 5 MG Oral Tablet [Valium] 08/27/2020 12:00:00 AM EST [email or web address] ([facility]) Triamcinolone Acetonide 1 MG/ML Topical Cream [facility] ([facility]) topiramate 50 MG Oral Tablet [facility] ([facility]) topiramate 100 MG Oral Tablet [facility] ([facility]) Prednisone 10 MG Oral Tablet [facility] ([facility]) POLYETHYLENE GLYCOL 3350 105 MG/ML / Pot assium Chloride 0.96255 MEQ/ML / Sodium Bicarbonate 0.017 MEQ/ML / Sodium Chloride 0.0479 MEQ/ML Oral Solution [facility] ([facility]) Acetaminophen 325 MG / Oxycodone Hydrochloride 5 MG Oral Tablet [facility] ([facility]) Nortriptyline 25 MG Oral Capsule [facility] ([facility]) Oxymetazoline hydrochloride 0.5 MG/ML Nasal [place] [facility] ([facility]) 12 HR Guaifenesin 600 MG Extended Release Oral Tablet [Mucinex] [facility] ([facility]) Metoprolol Tartrate 100 MG Oral Tablet [facility] ([facility]) Acetaminophen 325 MG / Hydrocodone Bitartrate 5 MG Oral Tablet [facility] ([facility]) Diazepam 5 MG Oral Tablet AT [facility] ([facility]) Codeine Phosphate 2 MG/ML / Guaifenesin 20 MG/ML Oral Solution [facility] ([facility]) Clarithromycin 500 MG Oral Tablet [facility] ([facility]) Ciprofloxacin 250 MG Oral Tablet [facility] ([facility]) Ciprofloxacin 3 MG/ML / Dexamethasone 1 MG/ML Otic Suspension [Cipr odex] [facility] ([facility]) Cephalexin 500 MG Oral Capsule [facility] ([facility]) cefdinir 300 MG Oral Capsule [facility] ([facility]) benzonatate 100 MG Oral Capsule [facility] ([facility]) Azithromycin 250 MG Oral Tablet [facility] ([facility]) atorvastatin 20 MG Oral Tablet [facility] ([facility]) atorvastatin 10 MG Oral Tablet [facility] ([facility]) Aspirin 81 MG Delayed Release Oral Tablet [facility] ([facility]) Alprazolam 0.5 MG Oral Tablet [facility] ([facility]) Alprazolam 0.25 MG Oral Tablet [facility] ([facility]) Afluria Quad 0221-7728 60 mcg (15 mcg x 4)/0.5 mL intramuscular saul p. [facility] ([facility]) Triamcinolone Acetonide 1 MG/ML Topical Cream [facility] ([facility]) topiramate 50 MG Oral Tablet [facility] ([facility]) topiramate 100 MG Oral Tablet [facility] ([facility]) Prednisone 10 MG Oral Tablet [facility] ([facility]) Nortriptyline 25 MG Oral Capsule [facility] ([facility]) Oxymetazoline hydrochloride 0.5 MG/ML Nasal [place] [facility] ([facility]) 12 HR Guaifenesin 600 MG Extended Release Oral Tablet [Mucinex] [facility] ([facility]) Metoprolol Tartrate 100 MG Oral Tablet [facility] ([facility]) Acetaminophen 325 MG / Hydrocodone Bitartrate 5 MG Oral Tablet [facility] ([facility]) Codeine Phosphate 2 MG/ML / Guaifenesin 20 MG/ML Oral Solution [facility] ([facility]) Ciprofloxacin 3 MG/ML / Dexamethasone 1 MG/ML Otic Suspension [Cipr odex] [facility] ([facility]) Cephalexin 500 MG Oral Capsule [facility] ([facility]) benzonatate 100 MG Oral Capsule [facility] ([facility]) Azithromycin 250 MG Oral Tablet [facility] ([facility]) atorvastatin 20 MG Oral Tablet [facility] ([facility]) atorvastatin 10 MG Oral Tablet [facility] ([facility]) Aspirin 81 MG Delayed Release Oral Tablet [facility] ([facility]) Alprazolam 0.5 MG Oral Tablet [facility] ([facility]) Alprazolam 0.25 MG Oral Tablet [facility] ([facility]) Afluria Quad 60 mcg (15 mcg x 4)/0.5 mL intramuscular saul p. [facility] ([facility]) Triamcinolone Acetonide 1 MG/ML Topical Cream [facility] ([facility]) topiramate 50 MG Oral Tablet [facility] ([facility]) topiramate 100 MG Oral Tablet [facility] ([facility]) Prednisone 10 MG Oral Tablet [facility] ([facility]) Nortriptyline 25 MG Oral Capsule [facility] ([facility]) Oxymetazoline hydrochloride 0.5 MG/ML Nasal [place] [facility] ([facility]) 12 HR Guaifenesin 600 MG Extended Release Oral Tablet [Mucinex] [facility] ([facility]) Metoprolol Tartrate 100 MG Oral Tablet [facility] ([facility]) Acetaminophen 325 MG / Hydrocodone Bitartrate 5 MG Oral Tablet [facility] ([facility]) Codeine Phosphate 2 MG/ML / Guaifenesin 20 MG/ML Oral Solution [facility] ([facility]) Ciprofloxacin 3 MG/ML / Dexamethasone 1 MG/ML Otic Suspension [Cipr odex] [facility] ([facility]) Cephalexin 500 MG Oral Capsule [facility] ([facility]) benzonatate 100 MG Oral Capsule [facility] ([facility]) Azithromycin 250 MG Oral Tablet [facility] ([facility]) atorvastatin 20 MG Oral Tablet [facility] ([facility]) atorvastatin 10 MG Oral Tablet [facility] ([facility]) Aspirin 81 MG Delayed Release Oral Tablet [facility] ([facility]) Alprazolam 0.5 MG Oral Tablet [facility] ([facility]) Alprazolam 0.25 MG Oral Tablet [facility] ([facility]) Afluria Quad [id number] 60 mcg (15 mcg x 4)/0.5 mL intramuscular saul p. [facility] ([facility])
[2020-09-29] MEDS ORDERED: MORPHINE 4 MG/ML 1ML VIAL/SYRINGE (J2270) IV ONE (17:30)
[2020-09-29] MEDS ORDERED: NS 1,000 ML IV ONE (17:30)
[2020-09-29] MEDS ORDERED: ONDANSETRON 4MG/2ML VIAL IV ONE (17:30)
[2020-09-29 17:54] LABS: BASO # 0.1 10^3/uL (0.0-0.2); BASO % 0.7 % (0.0-1.0); EOS # 0.2 10^3/uL (0.0-0.5); EOS % 2.2 % (0.0-3.0); HEMATOCRIT 43.5 % (36.0-47.0); LYMPH # 3.2 10^3/uL (1.5-5.0); LYMPH % 35.7 % (24.0-44.0); MEAN CORPUSCULAR HEMOGLOBIN 28.9 pg (27.0-33.0); MEAN CORPUSCULAR HGB CONC 32.2 g/dl (32.0-36.5); MEAN CORPUSCULAR VOLUME 89.7 fl (80.0-96.0); MONO # 0.6 10^3/uL (0.0-0.8); MONO % 6.8 % (2.0-8.0); NEUTROPHILS # 4.9 10^3/uL (1.5-8.5); NEUTROPHILS % 54.4 % (36.0-66.0); PLATELET COUNT, AUTOMATED 323 10^3/uL (150-450); RED BLOOD COUNT 4.85 10^6/uL (4.00-5.40); WHITE BLOOD COUNT 8.9 10^3/uL (4.0-10.0)
[2020-09-29 18:18] LABS: ALT/SGPT 26 U/L (12-78); BILIRUBIN,DIRECT < 0.1 MG/DL (0.0-0.2); BILIRUBIN,TOTAL 0.2 MG/DL (0.2-1.0); LIPASE 72 U/L (73-393); TOTAL PROTEIN 7.4 GM/DL (6.4-8.2)
[2020-09-29] MEDS ORDERED: ISOVUE-370 76% 100ML VIAL As Ordered ONE (18:30)
--- NOTE | 2020-09-29 20:19 | REPVR ---
PROCEDURE INFORMATION: Exam: CT Abdomen And Pelvis With Contrast Exam date and time: 09/29/2020 7:20 PM Age: 59 years old Clinical indication: Abdominal pain; Generalized; Additional info: Lower abd pain, HX divertic, cough alot last night TECHNIQUE: Imaging protocol: Computed tomography of the abdomen and pelvis with contrast. Radiation optimization: All CT scans at this facility use at least one of these dose optimization techniques: automated exposure control; mA and/or kV adjustment per patient size (includes targeted exams where dose is matched to clinical indication); or iterative reconstruction. Contrast material: ISOVUE 370; Contrast volume: 100 ml; Contrast route: INTRAVENOUS (IV); COMPARISON: No relevant prior studies available. FINDINGS: Lungs: The lung bases are unremarkable. Mediastinal space: There is a small hiatal hernia. Liver: There are no focal liver lesions. Gallbladder and bile ducts: The gallbladder is distended. Pancreas: The pancreas is normal. Spleen: The spleen is unremarkable. Adrenal glands: The adrenal glands are unremarkable. Kidneys and ureters: The kidneys are unremarkable. Stomach and bowel: There is no evidence of intestinal obstruction. Diverticula are seen in the colon particularly in the sigmoid region where there is wall thickening but no pericolonic soft tissue stranding to suggest acute diverticulitis. Appendix: The appendix is unremarkable. Intraperitoneal space: Unremarkable. No free air. No significant fluid collection. Vasculature: There is no evidence of an infrarenal abdominal aortic aneurysm. There is mild atherosclerotic calcification. Lymph nodes: Unremarkable. No enlarged lymph nodes. Urinary bladder: The urinary bladder is distended. Reproductive: There has been a hysterectomy. Bones/joints: Unremarkable. No acute fracture. Soft tissues: There is a fat-containing umbilical hernia. IMPRESSION: Diverticulosis particularly in the sigmoid colon without evidence of acute diverticulitis. Electronically signed by: Alma Sales On 09/29/2020 20:19:12 PM
[2020-09-29] MEDS ORDERED: KETOROLAC 30 MG/ML 1ML VIAL IV ONE (21:30)
--- OUTSIDE RECORDS SUMMARY | 2020-09-29 22:19 | CCD ---
Author Author [facility] Organization [facility] Address Unknown Phone Unavailable Care Team Providers Care Broommaker Name Role Phone PETROFF, CHACHO PA Unavailable [...] Hallie MPAS, PA-C Unavailable Unavailabl e Fish, [facility], PA-C Unavailable Unavailabl e Fish, [facility], PA-C Unavailable Unavailabl e Fish, [facility], PA-C Unavailable Unavailabl e Fish, [facility], PA-C Unavailable Unavailabl e Fish, [facility], PA-C Unavailable Unavailabl e Fish, [facility], PA-C Unavailable Unavailabl e Fish, [facility], PA-C Unavailable Unavailabl e Fish, [facility], PA-C Unavailable Unavailabl e Fish, [facility], PA-C Unavailable Unavailabl e Fish, [facility], PA-C Unavailable Unavailabl e Fish, [facility], PA-C Unavailable Unavailabl e Fish, [facility], PA-C Unavailable Unavailabl e Fish, [facility], PA-C Unavailable Unavailabl e Fish, [facility], PA-C Unavailable Unavailabl e Fish, [facility], PA-C Unavailable Unavailabl e Fish, [facility], PA-C Unavailable Unavailabl e Fish, [facility], PA-C Unavailable Unavailabl e Fish, [facility], PA-C Unavailable Unavailabl e Fish, [facility], PA-C Unavailable Unavailabl e Fish, [facility], PA-C Unavailable Unavailabl e Fish, [facility], PA-C Unavailable Unavailabl e Fish, [facility], PA-C Unavailable Unavailabl e Fish, [facility], PA-C Unavailable Unavailabl e Fish, [facility], PA-C Unavailable Unavailabl e Fish, [facility], PA-C Unavailable Unavailabl e Fish, [facility], PA-C Unavailable Unavailabl e [facility], [facility] Unavailable Unavailabl e Radha Collazo MD [...] Unavailable Unavailable Radha Collazo MD Unavailable Unavailable Radah Collazo MD Unavailable Unavailable Radha Collazo MD [...] Unavailable Unavailable Radha Collazo MD Unavailable Unavailable Radah Collazo MD Unavailable Unavailable Radha Collazo MD [...] Unavailable Radha Collazo MD Unavailable Unavailable Radha oCllazo MD Unavailable Unavailable Radha Collazo MD Unavailable Unavailable Radha Collazo MD Unavailable Unavailable Radha Collazo MD Unavailable Unavailable Rdaha Collazo MD Unavailable Unavailable Radha Collazo MD [...] MD Unavailable Unavailable CollazoRadha MD Unavailable Unavailable CollazoRadah MD Unavailable Unavailable Radha Collazo MD Unavailable [...] is protected by Article 27-F of the [facility] Public Health law. If you continue you may have access to information: Regarding HIV / AIDS; Provided by facilities licensed or operated by the [facility] Office of Mental Health; or Provided by the [facility] Office for People With Developmental Disabilities. If such information is present, then the following [facility] mandated warning applies: This information has been [...] law may result in a fine or usp sentence or both. A general authorization for the release of medical or other information is NOT sufficient authorization for further disc losure. Allergies and Adverse Reactions Type Description Substance Reaction Status Data Source(s ) Drug allergy SEPT [facility] Allergy to substance Allergy to substance Depakote [facility] ([facility]) Allergy to substance Allergy to substance Depakote [facility] ([facility]) Allergy to substance Allergy to substance Depakote [facility] ([facility]) Drug allergy DEPAKOTE DEPAKOTE [facility] Drug allergy DEMEROL (MEPERIDINE HCL) DEMEROL (MEPERIDINE HCL) [facility] Food allergy SULFA ANTIBIOTICS SULFA ANTIBIOTICS [facility] Encounters Encounter Providers Location Date Indications Data Source(s ) Higinio Collazo MD: [address] [place] [address] [phone], Ph. Attender: Higinio Collazo MD [facility] Medical 09/17/2020 12:00:00 AM EST L[facility]LOU ([facility]) Outpatient [address] [facility] [id number] 08/26/2020 12:00:00 AM EST eCW1 ([facility]) Higinio Collazo MD: [address] [place] [address] [phone], Ph. Attender: Higinio Collazo MD [facility] Medical 08/14/2020 12:00:00 AM EST L[facility]OU ([facility]) Higinio Collazo MD: [address] [place] [address] [phone], Ph. Attender: Higinio Collazo MD [facility] Medical 08/14/2020 12:00:00 AM EST [facility] ([facility]) Outpatient Attender: Flavio Downey MD Main office - [place] 07/10/2020 07:00:00 AM EST MEDENT ([facility]) Higinio Collazo MD: [address] [place] [address] [phone], Ph. Attender: Higinio Collazo MD [facility] Medical 06/04/2020 12:00:00 AM EDT L[facility] ([facility]) Higinio Collazo MD: [address] [place] [address] [phone], Ph. Attender: Higinio Collazo MD [facility] Medical 06/04/2020 12:00:00 AM EDT [facility] ([facility]) Higinio Collazo MD: [address] [place] [address] [phone], Ph. Attender: Higinio Collazo MD [facility] Medical 06/04/2020 12:00:00 AM EDT [facility] ([facility]) Outpatient Attender: Higinio Collazo MD 06/02/2020 02:24:00 PM EDT [facility] Outpatient Attender: Higinio Collazo MD 05/26/2020 01:08:01 PM EDT [facility] Higinio Collazo MD: [address] [place] [address] [phone], Ph. Attender: Higinio Collazo MD [facility] Medical 05/26/2020 12:00:00 AM EDT [facility] ([facility]) Higinio Collazo MD: [address] [place] [address] [phone], Ph. Attender: Higinio Collazo MD [facility] Medical 05/26/2020 12:00:00 AM EDT [facility] ([facility]) Higinio Collazo MD: [address] [place] [address] [phone], Ph. Attender: Higinio Collazo MD [facility] Medical 05/26/2020 12:00:00 AM EDT L[facility]OU ([facility]) Outpatient Attender: Higinio Collazo MD 05/22/2020 12:38:02 PM EDT [facility] Emergency Attender: ADRIEL BRICEÑOConsultant: Higinio Collazo MD 05/21/2020 02:58:00 PM EDT - 05/21/2020 03:51:00 PM EDT [facility] Patient discharged. Outpatient Attender: Higinio Collazo MD 05/05/2020 01:30:04 PM EDT [facility] Outpatient Attender: Higinio Collazo MD 05/05/2020 01:29:59 PM EDT [facility] Outpatient Attender: Higinio Collazo MD 05/05/2020 01:21:03 PM EDT [facility] Outpatient Attender: Higinio Collazo MD 05/05/2020 01:21:02 PM EDT [facility] Outpatient Attender: Flavio Downey MD Main office - [place] 05/05/2020 08:00:00 AM EDT MED[facility] ([facility]) Outpatient Attender: Higinio Collazo MD FP 04/28/2020 02:06:03 PM EDT [facility] Outpatient Attender: Higinio Collazo MD FP 04/28/2020 02:05:01 PM EDT [facility] Outpatient Attender: Higinio Collazo MD FP 04/28/2020 12:36:01 PM EDT [facility] Outpatient Attender: Higinio Collazo MD FP 04/28/2020 12:35:05 PM EDT [facility] Outpatient Attender: Higinio Collazo MD FP 04/27/2020 08:38:03 AM EDT [facility] Outpatient Attender: Higinio Collazo MD FP 04/27/2020 08:38:02 AM EDT [facility] Outpatient Attender: Higinio Collazo MD FP 04/17/2020 01:12:00 PM EDT [facility] Outpatient Attender: Higinio Collazo MD FP 04/17/2020 12:00:47 AM EDT [facility] Outpatient Attender: Higinio Collazo MD FP 04/16/2020 03:00:10 PM EDT [facility] Outpatient Attender: Higinio Collazo MD FP 04/16/2020 02:46:31 PM EDT [facility] Outpatient Attender: Higinio Collazo MD FP 03/20/2020 03:34:01 PM EDT [facility] Outpatient Attender: Higinio Collazo MD FP 03/19/2020 03:06:00 PM EDT [facility] Outpatient Attender: Higinio Collazo MD FP 03/19/2020 09:38:01 AM EDT [facility] Outpatient Attender: Higinio Collazo MD FP 03/19/2020 09:16:01 AM EDT [facility] Outpatient Attender: Higinio Collazo MD FP 03/19/2020 08:55:01 AM EDT [facility] Outpatient Attender: Higinio Collazo MD FP 03/11/2020 11:31:01 AM EDT [facility] Outpatient Attender: Higinio Collazo MD FP 03/09/2020 04:18:01 PM EDT [facility] Outpatient Attender: Higinio Collazo MD FP 03/09/2020 02:05:00 PM EDT [facility] Outpatient Attender: Higinio Collazo MD FP 03/09/2020 02:04:02 PM EDT [facility] Outpatient Attender: Higinio Collazo MD FP 03/09/2020 02:03:01 PM EDT [facility] Outpatient Attender: Higinio Collazo MD FP 02/24/2020 04:50:00 PM EDT [facility] Outpatient Attender: Higinio Collazo MD FP 02/20/2020 03:42:01 PM EDT [facility] Outpatient Attender: Hallie HAYNES [facility] 02/17/2020 02:15:00 PM EDT [facility] ([facility]) Outpatient Attender: Higinio Collazo MD FP 02/10/2020 07:39:01 AM EDT [facility] Outpatient Attender: Higinio Collazo MD FP 02/07/2020 12:00:11 AM EDT [facility] Outpatient Attender: Higinio Collazo MD FP 02/06/2020 09:32:02 AM EDT [facility] Outpatient Attender: Higinio Collazo MD FP 02/06/2020 09:31:00 AM EDT [facility] Outpatient Attender: Higinio Collazo MD FP 02/06/2020 08:24:00 AM EDT [facility] Outpatient Attender: Higinio Collazo MD FP 02/06/2020 08:22:01 AM EDT [facility] Outpatient Attender: Higinio Collazo MD FP 02/06/2020 08:21:00 AM EDT [facility] Outpatient Attender: Higinio Collazo MD FP 02/06/2020 08:20:00 AM EDT [facility] Outpatient Attender: Higinio Collazo MD FP 02/06/2020 08:10:00 AM EDT [facility] Outpatient Attender: Higinio Collazo MD FP 02/05/2020 09:40:01 AM EDT [facility] Outpatient Attender: TOPHER [facility] 01/22/2020 09:30:00 AM EDT [facility] ([facility]) Outpatient Attender: Higinio Collazo MD FP 01/21/2020 04:16:01 PM EDT [facility] Outpatient Attender: Higinio Collazo MD FP 01/14/2020 08:04:12 PM EDT [facility] OFFICE OUTPATIENT NEW 30 MINUTES Attender: JUAREZ [facility] 01/13/2020 11:00:00 AM EDT [facility] ([facility] ) Emergency Attender: CHACHO PIZARRO 2019 02:57:00 PM EDT - 01/12/2020 05:00:00 PM EDT [facility] Patient discharged. Outpatient Attender: Higinio TOVAR 01/10/2020 12:02:16 AM EDT [facility] Outpatient Attender: Higinio TOVAR 01/09/2020 03:03:00 PM EDT [facility] Immunizations Vaccine Date Status Description Data Source(s) Tdap 06/04/2020 05:14:00 PM EDT completed 06/04/2020 0.5 mL [facility]OU ([facility]) Tdap 06/04/2020 05:14:00 PM EDT completed 06/04/2020 0.5 mL [facility] ([facility]) Tdap 06/04/2020 05:14:00 PM EDT completed 06/04/2020 0.5 mL L[facility]OU ([facility]) Influenza, injectable, MDCK, preservative free, ciro valent 04/24/2020 12:00:00 AM EDT completed 04/24/2020 [facility]OU ([facility]) Influenza, injectable, MDCK, preservative free, ciro valent 04/24/2020 12:00:00 AM EDT completed 04/24/2020 CLOSTER ([facility]) INFLUENZA VIRUS VACCINE QUADRIVALENT 2019-21 (6 MOS AN D UP) 04/24/2020 12:00:00 AM EDT completed [facility] Medications Medication Brand Name Start Date Product Form Dose Route Admi nistrative Instructions Pharmacy Instructions Status Indications Reaction Description Data Source(s) Diazepam 5 MG Oral Tablet [Valium] Valium 5 MG Valium 5 MG 08/27/2020 12:00:00 AM EST active Valium 5 MG eCW1 ([facility]) Alprazolam 0.5 MG Oral Tablet Alprazolam 05/05/2020 12:00:00 AM EDT ORAL active MEDENT ([facility] ) topiramate 200 MG Oral Tablet Topiramate 05/05/2020 12:00:00 AM EDT ORAL active MEDENT ([facility] ) Amitriptyline Hydrochloride 50 MG Oral Tablet Amitriptyline HCL 05/05/2020 12:00:00 AM EDT ORAL active M EDENT ([facility]) Cephalexin 500 MG Oral Capsule CEPHALEXIN 04/28/2020 12:00:00 AM EDT capsule 21 TAKE ONE CAPSULE BY MOUTH THREE TIMES A DAY TAKE ONE C APSULE BY MOUTH THREE TIMES A DAY SOLD: 04/30/2020 [facility] 0.12 % 04/17/2020 12:00:00 AM [...] completed atorvastatin 20 MG Oral Tablet LOU[facility]OU ([facility]) atorvastatin 20 MG Oral Tablet atorvastatin 20 mg tabl et atorvastatin 20 mg tablet [facility] Ciprofloxacin 3 MG/ML / Dexamethasone 1 MG/ML Otic Suspension [Ciprodex] Ciprodex 0.3 %-0.1 % ear drops,suspension Ciprodex 0.3 %-0.1 % ear drops,suspension completed ciprofloxacin 3 MG/ML / dexamethasone 1 MG/ML Otic Suspension [Ciprodex] [facility] ([facility]) Cephalexin 500 MG Oral Capsule cephalexin 500 mg capsu le cephalexin 500 mg capsule completed cephalexin 500 MG Oral Capsule [facility]STER ([facility]) Clarithromycin 500 MG Oral Tablet clarithromycin 500 m g tablet clarithromycin 500 mg tablet completed clarithr omycin 500 MG Oral Tablet [facility] ([facility]) Alprazolam 0.5 MG Oral Tablet alprazolam 0.5 mg tablet alpra zolam 0.5 mg tablet completed alprazolam 0.5 MG Oral Tablet [facility] ([facility]) atorvastatin 10 MG Oral Tablet atorvastatin 10 mg tabl et atorvastatin 10 mg tablet completed atorvastatin 10 MG Oral Tablet [facility] ([facility]) 12 HR Guaifenesin 600 MG Extended Releas e Oral Tablet [Mucinex] Mucinex 600 mg tablet, extended release Mucinex 600 mg tablet, extended release completed 12 HR guaifenesin 600 MG Extende d Release Oral Tablet [Mucinex] [facility] ([facility]) Acetaminophen 325 MG / Hydrocodone Juve trate 5 MG Oral Tablet hydrocodone 5 mg- acetaminophen 325 mg tablet hydrocodone 5 mg-acetaminophen 325 mg tablet completed acetaminophen 325 MG / hydrocodone bitartrate 5 MG Oral Tablet [facility] ([facility]) Nortriptyline 25 MG Oral Capsule nortriptyline 25 mg c apsule nortriptyline 25 mg capsule completed nortriptyline 25 MG Oral Capsule [facility] ([facility]) cefdinir 300 MG Oral Capsule cefdinir 300 mg capsule cefdinir 30 0 mg capsule completed cefdinir 300 M G Oral Capsule [facility]STER ([facility]) Metoprolol Tartrate 100 MG Oral Tablet metoprolol tart rate 100 mg tablet metoprolol tartrate 100 mg tablet comp leted metoprolol tartrate 100 MG Oral Tablet [facility]LOSTER ([facility]) Oxymetazoline hydrochloride 0.5 MG/ML Na one[place] Nasal [place] (oxymetazoline) 0.05 % Nasal [place] (oxymetazoline) 0.05 % co mpleted oxymetazoline hydrochloride 0.5 MG/ML Nasal [place] L[facility]OU ([facility]) topiramate 50 MG Oral Tablet topiramate 50 mg tablet topiramate 50 mg tablet completed topiramate 50 MG Oral Tablet [facility] ([facility]) Oxymetazoline hydrochloride 0.5 MG/ML Na [place] Nasal [place] (oxymetazoline) 0.05 % Nasal [place] (oxymetazoline) 0.05 % co mpleted oxymetazoline hydrochloride 0.5 MG/ML Nasal [place] L[facility]OU ([facility]) Alprazolam 0.25 MG Oral Tablet alprazolam 0.25 mg tabl et alprazolam 0.25 mg tablet completed alprazolam 0.25 MG Oral Tablet [facility] ([facility]) Metoprolol Tartrate 100 MG Oral Tablet metoprolol tart rate 100 mg tablet metoprolol tartrate 100 mg tablet comp leted metoprolol tartrate 100 MG Oral Tablet [facility] ([facility]) Codeine Phosphate 2 MG/ML / Guaifenesin 20 MG/ML Oral Solution codeine 10 mg- guaifenesin 100 mg/5 mL oral liquid codeine 10 mg-guaifenesin 100 mg/5 mL or al liquid completed codeine phosphate 2 MG/ML / guaifenesin 20 MG/ML Oral Solution [facility] ([facility]) Alprazolam 0.25 MG Oral Tablet alprazolam 0.25 mg tabl et alprazolam 0.25 mg tablet completed alprazolam 0.25 MG Oral Tablet [facility] ([facility]) Cephalexin 500 MG Oral Capsule cephalexin 500 mg capsu le cephalexin 500 mg capsule completed cephalexin 500 MG Oral Capsule [facility] ([facility]) Alprazolam 0.5 MG Oral Tablet alprazolam 0.5 mg tablet alpra zolam 0.5 mg tablet completed alprazolam 0.5 MG Oral Tablet [facility] ([facility]) Azithromycin 250 MG Oral Tablet azithromycin 250 mg ta blet azithromycin 250 mg tablet completed azithromycin 25 0 MG Oral Tablet [facility] ([facility]) Aspirin 81 MG Delayed Release Oral Tablet aspirin 81 m g tablet,delayed release aspirin 81 mg tablet,delayed release c ompleted aspirin 81 MG Delayed Release Oral Tablet [facility] ([facility]) Alprazolam 0.25 MG Oral Tablet alprazolam 0.25 mg tabl et alprazolam 0.25 mg tablet completed alprazolam 0.25 MG Oral Tablet [facility] ([facility]) Nortriptyline 25 MG Oral Capsule nortriptyline 25 mg c apsule nortriptyline 25 mg capsule completed nortriptyline 25 MG Oral Capsule [facility] ([facility]) topiramate 100 MG Oral Tablet topiramate 100 mg tablet topir amate 100 mg tablet completed topiramate 100 MG Oral Tablet [facility] ([facility]) topiramate 100 MG Oral Tablet topiramate 100 mg tablet topir amate 100 mg tablet completed topiramate 100 MG Oral Tablet [facility] ([facility]) Ciprofloxacin 3 MG/ML / Dexamethasone 1 MG/ML Otic Suspension [Ciprodex] Ciprodex 0.3 %-0.1 % ear drops,suspension Ciprodex 0.3 %-0.1 % ear drops,suspension completed ciprofloxacin 3 MG/ML / dexamethasone 1 MG/ML Otic Suspension [Ciprodex] LOULOU ([facility]) Afluria Quad 3791-3769 60 mcg (15 mcg x 4)/0.5 mL intramuscular susp. [id number] completed Afluria Quad 60 mcg (15 mcg x 4)/0.5 mL intramuscular susp. L[facility]OU ([facility]) Afluria Quad 4930-0204 60 mcg (15 mcg x 4)/0.5 mL intramuscular susp. [id number] completed Afluria Quad 60 mcg (15 mcg x 4)/0.5 mL intramuscular susp. LOULOU ([facility]) Oxymetazoline hydrochloride 0.5 MG/ML Na [place] Nasal [place] (oxymetazoline) 0.05 % Nasal [place] (oxymetazoline) 0.05 % co mpleted oxymetazoline hydrochloride 0.5 MG/ML Nasal [place] [facility] ([facility]) topiramate 50 MG Oral Tablet topiramate 50 mg tablet topiramate 50 mg tablet completed topiramate 50 MG Oral Tablet [facility]) atorvastatin 20 MG Oral Tablet atorvastatin 20 mg tabl et atorvastatin 20 mg tablet completed atorvastatin 20 MG Oral Tablet [facility] ([facility]) Triamcinolone Acetonide 1 MG/ML Topical Cream triamcinolone acetonide 0.1 % topical cream triamcinolone acetonide 0.1 % topical cream completed triamcinolone acetonide 1 MG/ML Topical Cream L[facility] ([facility]) Acetaminophen 325 MG / Hydrocodone Juve trate 5 MG Oral Tablet hydrocodone 5 mg- acetaminophen 325 mg tablet hydrocodone 5 mg-acetaminophen 325 mg tablet completed acetaminophen 325 MG / hydrocodone bitartrate 5 MG Oral Tablet [facility] ([facility]) atorvastatin 10 MG Oral Tablet atorvastatin 10 mg tabl et atorvastatin 10 mg tablet completed atorvastatin 10 MG Oral Tablet [facility] ([facility]) Aspirin 81 MG Delayed Release Oral Tablet aspirin 81 m g tablet,delayed release aspirin 81 mg tablet,delayed release c ompleted aspirin 81 MG Delayed Release Oral Tablet [facility] ([facility]) 12 HR Guaifenesin 600 MG Extended Releas e Oral Tablet [Mucinex] Mucinex 600 mg tablet, extended release Mucinex 600 mg tablet, extended release completed 12 HR guaifenesin 600 MG Extende d Release Oral Tablet [Mucinex] [facility] ([facility]) Diazepam 5 MG Oral Tablet diazepam 5 mg tablet diazepam 5 mg tablet completed diazepam 5 MG Oral Tablet [facility] ([facility]) Codeine Phosphate 2 MG/ML / Guaifenesin 20 MG/ML Oral Solution codeine 10 mg- guaifenesin 100 mg/5 mL oral liquid codeine 10 mg-guaifenesin 100 mg/5 mL or al liquid completed codeine phosphate 2 MG/ML / guaifenesin 20 MG/ML Oral Solution L[facility]OU ([facility]) Afluria Quad 7280-9321 60 mcg (15 mcg x 4)/0.5 mL intramuscular susp. [id number] completed Afluria Quad 2 -2020 60 mcg (15 mcg x 4)/0.5 mL intramuscular susp. LOULOU ([facility]) Aspirin 81 MG Delayed Release Oral Tablet aspirin 81 m g tablet,delayed release aspirin 81 mg tablet,delayed release c ompleted aspirin 81 MG Delayed Release Oral Tablet [facility] ([facility]) POLYETHYLENE GLYCOL 3350 105 MG/ML / Pot assium Chloride 0.23207 MEQ/ML / Sodium Bicarbonate 0.017 MEQ/ML / Sodium Chloride 0.0479 MEQ/ML Oral Solution peg- electrolyte solution 420 gram oral solution peg-electrolyte solution 420 gram oral solution completed polyethylene glycol 3350 709226 MG / potassium chloride 1480 MG / sodium bicarbonate 5720 MG / sodium chloride 05428 MG Powder for Oral Solution L[facility]OU ([facility]) Codeine Phosphate 2 MG/ML / Guaifenesin 20 MG/ML Oral Solution codeine 10 mg- guaifenesin 100 mg/5 mL oral liquid codeine 10 mg-guaifenesin 100 mg/5 mL or al liquid completed codeine phosphate 2 MG/ML / guaifenesin 20 MG/ML Oral Solution L[facility]OU ([facility]) Prednisone 10 MG Oral Tablet prednisone 10 mg tablet prednisone 10 mg tablet completed prednisone 10 MG Oral Tablet [facility] ([facility]) benzonatate 100 MG Oral Capsule benzonatate 100 mg cap estefany benzonatate 100 mg capsule completed benzonatate 10 0 MG Oral Capsule [facility] ([facility]) Alprazolam 0.5 MG Oral Tablet alprazolam 0.5 mg tablet alpra zolam 0.5 mg tablet completed alprazolam 0.5 MG Oral Tablet [facility]OU ([facility]) Prednisone 10 MG Oral Tablet prednisone 10 mg tablet prednisone 10 mg tablet completed prednisone 10 MG Oral Tablet [facility] ([facility]) Ciprofloxacin 3 MG/ML / Dexamethasone 1 MG/ML Otic Suspension [Ciprodex] Ciprodex 0.3 %-0.1 % ear drops,suspension Ciprodex 0.3 %-0.1 % ear drops,suspension completed ciprofloxacin 3 MG/ML / dexamethasone 1 MG/ML Otic Suspension [Ciprodex] [facility]OU[facility]OU ([facility]) topiramate 50 MG Oral Tablet topiramate 50 mg tablet topiramate 50 mg tablet completed topiramate 50 MG Oral Tablet [facility] ([facility]) topiramate 100 MG Oral Tablet topiramate 100 mg tablet topir amate 100 mg tablet completed topiramate 100 MG Oral Tablet [facility] ([facility]) Acetaminophen 325 MG / Oxycodone Hydroch loride 5 MG Oral Tablet oxycodone- acetaminophen 5 mg-325 mg tablet oxycodone-acetaminophen 5 mg-325 mg tablet completed acetaminop hen 325 MG / oxycodone hydrochloride 5 MG Oral Tablet LOULOU ([facility]) Ciprofloxacin 250 MG Oral Tablet ciprofloxacin 250 mg tablet ciprofloxacin 250 mg tablet completed ciprofloxaci n 250 MG Oral Tablet CLOSTER ([facility]) Triamcinolone Acetonide 1 MG/ML Topical Cream triamcinolone acetonide 0.1 % topical cream triamcinolone acetonide 0.1 % topical cream completed triamcinolone acetonide 1 MG/ML Topical Cream CLOSTER ([facility]) Metoprolol Tartrate 100 MG Oral Tablet metoprolol tart rate 100 mg tablet metoprolol tartrate 100 mg tablet comp leted metoprolol tartrate 100 MG Oral Tablet CLOSTER ([facility]) atorvastatin 10 MG Oral Tablet atorvastatin 10 mg tabl et atorvastatin 10 mg tablet completed atorvastatin 10 MG Oral Tablet CLOSTER ([facility]) benzonatate 100 MG Oral Capsule benzonatate 100 mg cap estefany benzonatate 100 mg capsule completed benzonatate 10 0 MG Oral Capsule CLOSTER ([facility]) Azithromycin 250 MG Oral Tablet azithromycin 250 mg ta blet azithromycin 250 mg tablet completed azithromycin 25 0 MG Oral Tablet CLOSTER ([facility]) Azithromycin 250 MG Oral Tablet azithromycin 250 mg ta blet azithromycin 250 mg tablet completed azithromycin 25 0 MG Oral Tablet CLOSTER ([facility]) Acetaminophen 325 MG / Hydrocodone Juve trate 5 MG Oral Tablet hydrocodone 5 mg- acetaminophen 325 mg tablet hydrocodone 5 mg-acetaminophen 325 mg tablet completed acetaminophen 325 MG / hydrocodone bitartrate 5 MG Oral Tablet CLOSTER ([facility]) benzonatate 100 MG Oral Capsule benzonatate 100 mg cap estefany benzonatate 100 mg capsule completed benzonatate 10 0 MG Oral Capsule CLOSTER ([facility]) Prednisone 10 MG Oral Tablet prednisone 10 mg tablet prednisone 10 mg tablet completed prednisone 10 MG Oral Tablet CLOSTER ([facility]) 12 HR Guaifenesin 600 MG Extended Releas e Oral Tablet [Mucinex] Mucinex 600 mg tablet, extended release Mucinex 600 mg tablet, extended release completed 12 HR guaifenesin 600 MG Extende d Release Oral Tablet [Mucinex] CLOSTER ([facility]) Triamcinolone Acetonide 1 MG/ML Topical Cream triamcinolone acetonide 0.1 % topical cream triamcinolone acetonide 0.1 % topical cream completed triamcinolone acetonide 1 MG/ML Topical Cream LOULOU ([facility]) Nortriptyline 25 MG Oral Capsule nortriptyline 25 mg c apsule nortriptyline 25 mg capsule completed nortriptyline 25 MG Oral Capsule LOULOU ([facility]) Cephalexin 500 MG Oral Capsule cephalexin 500 mg capsu le cephalexin 500 mg capsule completed cephalexin 500 MG Oral Capsule LOULOU ([facility]) Insurance Providers Payer name Policy type / Coverage type Policy ID Covered republican ID Covered republican's relationship to bullard Policy Bullard Plan Information [facility] [id number] SP [id number] [facility] O [id number] [facility] [id number] SP [id number] [facility] AT [facility] [id number] 18 [id number] [facility] P [id number] S [id number] Self Pay P [id number] S [id number] Self Pay P UNAVAILABLE S UNAVAILA BLE [facility] PLAN [id number] S [id number] Problems, Conditions, and Diagnoses Code Display Name Description Problem Type Effective Dates Data Source(s) 986864795 Screening for malignant neoplasm of [address] Screening for Malignant Neoplasm of Breast Problem 09/03/2020 12:00:00 AM EST LOULOU ([facility]) [id number] Bilateral carpal tunnel syndrome Bilater al carpal tunnel syndrome Problem 07/10/2020 12:00:00 AM EST MEDENT ([facility]) 962822958 Disorders of initiating and maintaining sleep Disorders of initiating and maintaining sleep Problem 07/10/2020 12:00:00 AM EST MEDENT ([facility]) 504314062 Migraine without aura, not refractory Mi graine without aura, not refractory Problem 07/10/2020 12:00:00 AM EST MEDENT ([facility]) 920300130 Chronic tension-type headache Chronic tension-type hea dache Problem 07/10/2020 12:00:00 AM EST MEDENT ([facility]) 518173186 Mammography abnormal Mammography Abnormal Problem 06/04/2020 12:00:00 AM EDT LOULOU ([facility]) 662586697 Chronic depression Chronic Depression Problem 12:00:00 AM EDT LOULOU ([facility]) 552884797 Mammography abnormal Mammography Abnormal Problem 06/04/2020 12:00:00 AM EDT LOULOU ([facility]) 399696477 Chronic depression Chronic Depression Problem 12:00:00 AM EDT LOULOU ([facility]) 638007848 Mammography abnormal Mammography Abnormal Problem 06/04/2020 12:00:00 AM EDT LOULOU ([facility]) 073760843 Chronic depression Chronic Depression Problem 12:00:00 AM EDT LOULOU ([facility]) 47912955 Acute bacterial sinusitis Acute Bacterial Sinusitis Pr oblem 05/26/2020 12:00:00 AM EDT LOULOU ([facility]) 09571279 Acute bacterial sinusitis Acute Bacterial Sinusitis Pr oblem 05/26/2020 12:00:00 AM EDT LOULOU ([facility]) 63415215 Acute bacterial sinusitis Acute Bacterial Sinusitis Pr oblem 05/26/2020 12:00:00 AM EDT LOULOU ([facility]) 05393793 Cervico-occipital neuralgia Cervico-occipital neuralgi a Problem 05/05/2020 12:00:00 AM EDT MEDENT ([facility]) 638068928 Spondylolysis of cervical spine Spondylolysis of cervical spine Problem 05/05/2020 12:00:00 AM EDT MEDENT ([facility]) 86981162 Neck pain Neck pain Problem 05/05/2020 12:00:00 AM ED T MEDENT ([facility]) 504199162 Lumbar radiculopathy Lumbar radiculopathy Problem 05/05/2020 12:00:00 AM EDT MEDENT ([facility]) 044471002 Spondylolysis Spondylolysis Problem 05/05/2020 12:00:00 AM EDT MEDENT ([facility]) 195377596 Low back pain Low back pain Problem 05/05/2020 12:00:00 AM EDT MEDENT ([facility]) 854932463 Localization-related epilepsy Localization-related epi lepsy Problem 05/05/2020 12:00:00 AM EDT MEDENT ([facility]) 79184882 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 Problem 05/05/2020 12:00:00 AM EDT LEONOR ([facility] ) 681.02 Cellulitis of right finger Cellulitis of right finger 04/28/2020 02:04:42 PM EDT [facility] [id number] Cellulitis of finger of right hand Cellu litis of Finger of Right Hand Problem 04/28/2020 12:00:00 AM EDT LOULOU ([facility]) 793.80 Mammography abnormal Mammography abnormal 03/19 09:14:38 AM EDT [facility] 083081118 Clinical finding Clinical Finding Problem 03/19/2020 12 :00:00 AM EDT LOULOU ([facility]) 497093712 Abnormal findings on diagnostic imaging of breast Abnormal Findings on Diagnostic Imaging of Breast Problem 03/19/2020 12:00:00 AM EDT EDVIN LAU ([facility]) 849608487 Abnormal findings on diagnostic imaging of breast Abnormal Findings on Diagnostic Imaging of Breast Problem 03/19/2020 12:00:00 AM EDT EDVIN LAU ([facility]) 139513007 Abnormal findings on diagnostic imaging of breast Abnormal Findings on Diagnostic Imaging of Breast Problem 03/19/2020 12:00:00 AM EDT EDVIN LAU ([facility]) 724.4 Lumbar radiculopathy Lumbar radiculopathy 02/19 03:41:34 PM EDT [facility] 351355611 Localization-related (focal) (partial) symptomatic epilepsy and epileptic syndromes with simple partial seizures, intractable, without status epilepticus Localization-related (focal) (partial) s ymptomatic epilepsy and epileptic syndromes with simple partial seizures, intractable, without status epilepticus 02/20/2020 03:41:34 PM EDT [facility] 9178289 Lumbosacral radiculopathy Lumbosacral Radiculopathy Pr oblem 02/20/2020 12:00:00 AM EDT LOULOU ([facility]) 318521078 Localization-related symptomatic epileps y Localization-related Symptomatic Epilepsy Problem 02/20/2020 12:00:00 AM EDT L[facility]LOU ([facility]) 4501401 Lumbosacral radiculopathy Lumbosacral Radiculopathy Pr oblem 02/20/2020 12:00:00 AM EDT LOULOU ([facility]) 962437966 Localization-related symptomatic epileps y Localization-related Symptomatic Epilepsy Problem 02/20/2020 12:00:00 AM EDT LOULOU ([facility]) 5163384 Lumbosacral radiculopathy Lumbosacral Radiculopathy Pr oblem 02/20/2020 12:00:00 AM EDT LOULOU ([facility]) 272222037 Localization-related symptomatic epileps y Localization-related Symptomatic Epilepsy Problem 02/20/2020 12:00:00 AM EDT LOULOU ([facility]) 76663400 Other constipation Other constipation 0 09:30:39 AM EDT [facility] 075613074 Mixed hyperlipidemia Mixed hyperlipidemia 02/06/2020 09:30:39 AM EDT [facility] 724.2 Chronic low back pain Chronic low back pain 09/2019 09:30:39 AM EDT [facility] 423893881 Low back pain Low Back Pain Problem 02/06/2020 12:00:00 AM EDT CLOSTER ([facility]) 506858476 Chronic constipation Chronic Constipation Problem 02/06/2020 12:00:00 AM EDT CLOSTER ([facility]) 606808016 Mixed hyperlipidemia Mixed Hyperlipidemia Problem 02/06/2020 12:00:00 AM EDT CLOSTER ([facility]) 957845859 Low back pain Low Back Pain Problem 02/06/2020 12:00:00 AM EDT CLOSTER ([facility]) 961425191 Chronic constipation Chronic Constipation Problem 02/06/2020 12:00:00 AM EDT LOULOU ([facility]) 425271437 Mixed hyperlipidemia Mixed Hyperlipidemia Problem 02/06/2020 12:00:00 AM EDT LOULOU ([facility]) 282386622 Low back pain Low Back Pain Problem 02/06/2020 12:00:00 AM EDT CLOSTER ([facility]) 994499729 Chronic constipation Chronic Constipation Problem 02/06/2020 12:00:00 AM EDT CLOSTER ([facility]) 525652851 Mixed hyperlipidemia Mixed Hyperlipidemia Problem 02/06/2020 12:00:00 AM EDT LOULOU ([facility]) S39809 Personal history of nicotine dependence Personal history of nicotine dependence Diagnosis 05/21/2020 02:58:00 PM EDT [facility] T30096 Other long goods drier (current) drug therapy O ther long goods drier (current) drug therapy Diagnosis 05/21/2020 02:58:00 PM EDT [facility] E7800 Pure hypercholesterolemia, unspecified P ure hypercholesterolemia, unspecified Diagnosis 05/21/2020 02:58:00 PM EDT [facility] J0110 Acute frontal sinusitis, unspecified Acute front al sinusitis, unspecified Diagnosis 05/21/2020 02:58:00 PM [facility] J0100 Acute maxillary sinusitis, unspecified A cute maxillary sinusitis, unspecified Diagnosis 05/21/2020 02:58:00 PM [facility] J3489 Other specified disorders of nose and na oneida sinuses Other specified disorders of nose and nasal sinuses Diagnosis 05/21/2020 02:58:00 PM E DT [facility] Y92.[address] and highw ay as the place of occurrence of the external cause [address] Diagnosis 020 02:57:00 PM [facility] W10.8XXA Fall (on) (from) other stairs and steps, initial encounter FALL (ON) (FROM) OTHER STAIRS AND STEPS, INITIAL E Diagnosis 01/12/2020 02:57:00 PM [facility] Y93.01 Activity, walking, marching and hiking A CTIVITY, WALKING, MARCHING AND HIKING Diagnosis 01/12/2020 02:57:00 PM [facility] Z79.899 Other long goods drier (current) drug therapy O THER PATCH DRILLER (CURRENT) DRUG THERAPY Diagnosis [facility]/12[facility] S92.255A Nondisplaced fracture of monique [...] FOOT, I Diagnosis 01/12/2020 02:57:00 PM EDT [facility] l S99.911A Unspecified injury of right ankle, initi al encounter UNSPECIFIED INJURY OF RIGHT ANKLE, INITIAL ENCOUNTER Diagnosis 01/12/2020 02:57:00 PM ED T [facility] Surgeries/Procedures Procedure Description Date Indications Data Source(s) ELECTROENCEPHALOGRAM W/REC AWAKE&ASLEEP 06/16/2020 12: 00:00 AM EST MEDENT ([facility]) ELECTROENCEPHALOGRAM W/REC AWAKE&ASLEEP 06/16/2020 12: 00:00 AM EST MEDENT ([facility] ) MAMMO, diagnostic, digital, bilateral 06/04/2020 12:00 :00 AM EDT LOULOU ([facility]) Needle electromyography, each extremity, with related paraspinal areas, when performed, done with nerve conduction, amplitude and latency/velocity study; complete, five or more muscles studied, innervated by three or more nerves or four or more spinal levels (list separately in addition to the code for primary procedure). 05/25/2020 12:00:00 AM EDT MEDEN T ([facility] ) Needle electromyography, each extremity, with related paraspinal areas, when performed, done with nerve conduction, amplitude and latency/velocity study; complete, five or more muscles studied, innervated by three or more nerves or four or more spinal levels (list separately in addition to the code for primary procedure). 05/25/2020 12:00:00 AM EDT MEDEN T ([facility] ) Nerve Conduction 11-12 Studies 05/25/2020 12:00:00 AM EDT MEDENT ([facility] ) Needle electromyography, each extremity, with related paraspinal areas, when performed, done with nerve conduction, amplitude and latency/velocity study; complete, five or more muscles studied, innervated by three or more nerves or four or more spinal levels (list separately in addition to the code for primary procedure). 05/11/2020 12:00:00 AM EDT MEDEN T ([facility] ) Needle electromyography, each extremity, with related paraspinal areas, when performed, done with nerve conduction, amplitude and latency/velocity study; complete, five or more muscles studied, innervated by three or more nerves or four or more spinal levels (list separately in addition to the code for primary procedure). 05/11/2020 12:00:00 AM EDT MEDEN T ([facility] ) Nerve Conduction 11-12 Studies 05/11/2020 12:00:00 AM EDT MEDENT ([facility] ) MRI BRAIN BRAIN STEM W/O CONTRAST MATERIAL 05/10/2020 12:00:00 AM EDT MEDENT ([facility] ) MRI BRAIN BRAIN STEM W/O CONTRAST MATERIAL 05/10/2020 12:00:00 AM EDT MEDENT ([facility] MRI SPINAL CANAL CERVICAL W/O CONTRAST MATRL 0 12:00:00 AM EDT MEDENT ([facility] ) MRI SPINAL CANAL CERVICAL W/O CONTRAST MATRL 0 12:00:00 AM EDT MEDENT ([facility] ) RADIOLOGIC EXAM KNEE COMPLETE 4/MORE VIEWS 01/22/2020 12:00:00 AM EDT MEDENT ([facility] ) RADEX FOOT COMPLETE MINIMUM 3 VIEWS 01/22/2020 12:00:0 0 AM EDT MEDENT ([facility] ) RADIOLOGIC EXAM KNEE COMPLETE 4/MORE VIEWS 01/13/2020 12:00:00 AM EDT MEDENT ([facility]) Results ID Date Data Source [id number] 09/16/2020 12:00:00 AM EST [facility] Higinio Collazo MD Patient Name: ALEXIA ALVAREZ[address] [place] [address] Date of : 1960[place] [address]- Date of Exam: 09/16/2020#: Fax: [phone] EXAM: MAMMO SCREENING WITH CADCLINICAL INFORMATION: Screening.Comparison 07/26/2018, [facility].Family history of grandmother with breast cancer in her 70's.Based on the personal and family history information your patient suppliedat the time of imaging, her lifetime risk of breast cancer estimated by theTyrer-Cuzick model is 9.6%. Given that this patient has less than 20% TCrisk score, no further medical management is currently recommended at thistime.Digital screening (2D) mammography was performed bilaterally.Additionally, breast tomosynthesis (3D mammography) was performedbilaterally in the CC and MLO projections and compared to the priorexam(s).There has been no change in appearance of the mammogram from studies.There is a mild amount of residual fibroglandular tissue remaining, whichis fairly symmetric. There has been no interval development of dominantmasses, areas of structural distortion, or clusters of microcalcificationstypical of malignancy. Scattered lymph nodes are seen in the axilla.The Volpara volumetric breast density category is B, there are scatteredareas of fibroglandular density.IMPRESSION:BI-RADS Category 1 - Negative Mammogram. Currently no mammographicevidence of malignancy. Routine followup is recommended in one year.This mammogram was read with the assistance of [employer], an FDAapproved computer aided detection system for mammography.Negative x-ray reports should not delay surgical consultation if a dominantor clinically suspicious mass is present.Not all breast cancers can be identified by mammography. Therefore, werecommend that you continue to perform regular breast self-examination andphysical examination and then promptly contact your physician of anyconcerns or changes.Adenosis and dense breasts may obscure an underlying neoplasm.The patient states that a clinical breast examination was over a year ago.MELVI Roach/Matthewk you for referring ELISSA ALVAREZ to our office.Electronically Signed - ALTAGRACIA FERRO MD 09/29/20 17:36 Name Value Range Interpretation Code Description Data Alexa rce(s) Supporting Document(s) ID Date Data Source [id number] 08/14/2020 11:30:00 AM EST LOULOU ([facility]) Name Value Range Interpretation Code Description Data Alexa rce(s) Supporting Document(s) appearance, urine clear clear normal Appearance, Urine LOULOU ([facility]) protein, urine auto negative negative normal Protein, Urine A uto LOULOU ([facility]) pH,urine 6.0 units 5.0-9.0 normal pH,urine LOULOU ([facility]) specific gravity urine auto 1.002-1.035 normal Specifi c [place] Urine Auto LOULOU ([facility]) color, urine brielle yellow normal Color, Urine LOULOU ([facility]) bilirubin, urine auto negative negative normal Bilirubin, Uri ne Auto LOULOU ([facility]) nitrite, urine auto positive negative normal Nitrite, Urine A uto LOULOU ([facility]) urobilinogen, urine auto 0.2 mg/dL 0.0-2.0 normal Urobilinoge n, Urine Auto LOULOU ([facility]) ketone, urine auto negative negative normal Ketone, Urine Aut o LOULOU ([facility]) glucose, urine (UA) auto negative negative normal Glucose, Ur ine (UA) Auto LOULOU ([facility]) leukocyte esterase, urine auto trace negative Above high normal Leukocyte Esterase, Urine Auto LOULOU ([facility]) WBC, urine auto 2 /hpf 0-3 normal WBC, Urine Auto ATHE NA ([facility]) RBC, urine auto 0 /hpf 0-3 normal RBC, Urine Auto ATHE NA ([facility]) blood, urine blood negative negative normal Blood, Urine Bloo d LOULOU ([facility]) bacteria, urine auto 1+ negative Above high normal Bacteria , Urine Auto LOULOU ([facility]) squamous epithelial cell ur AU 2 /hpf 0-6 normal Squam ous Epithelial Cell Ur AU LOULOU ([facility]) mucus, urine small negative normal Mucus, Urine LOULOU ([facility]) hyaline cast, urine auto 0 /lpf 0-1 normal Hyaline Paulo t, Urine Auto LOULOU ([facility]) ID Date Data Source [id number] 08/14/2020 11:30:00 AM CHAN JAMIL ([facility]) Name Value Range Interpretation Code Description Data Alexa rce(s) Supporting Document(s) appearance, urine clear clear normal Appearance, Urine LOULOU ([facility]) pH,urine 6.0 units 5.0-9.0 normal pH,urine LOULOU ([facility]) color, urine brielle yellow normal Color, Urine LOULOU ([facility]) glucose, urine (UA) auto negative negative normal Glucose, Ur ine (UA) Auto LOULOU ([facility]) protein, urine auto negative negative normal Protein, Urine A uto LOULOU ([facility]) specific gravity urine auto 1.002-1.035 normal Specifi c [place] Urine Auto LOULOU ([facility]) urobilinogen, urine auto 0.2 mg/dL 0.0-2.0 normal Urobilinoge n, Urine Auto LOULOU ([facility]) ketone, urine auto negative negative normal Ketone, Urine Aut o LOULOU ([facility]) nitrite, urine auto positive negative normal Nitrite, Urine A uto LOULOU ([facility]) blood, urine blood negative negative normal Blood, Urine Bloo d LOULOU ([facility]) leukocyte esterase, urine auto trace negative Above high normal Leukocyte Esterase, Urine Auto LOULOU ([facility]) bilirubin, urine auto negative negative normal Bilirubin, Uri ne Auto LOULOU ([facility]) RBC, urine auto 0 /hpf 0-3 normal RBC, Urine Auto ATHE NA ([facility]) WBC, urine auto 2 /hpf 0-3 normal WBC, Urine Auto ATHE NA ([facility]) squamous epithelial cell ur AU 2 /hpf 0-6 normal Squam ous Epithelial Cell Ur AU LOULOU ([facility]) bacteria, urine auto 1+ negative Above high normal Bacteria , Urine Auto LOULOU ([facility]) mucus, urine small negative normal Mucus, Urine LOULOU ([facility]) hyaline cast, urine auto 0 /lpf 0-1 normal Hyaline Paulo t, Urine Auto LOULOU ([facility]) ID Date Data Source [id number] 06/18/2020 01:00:00 PM EST [facility] Name Value Range Interpretation Code Description Data Alexa rce(s) Supporting Document(s) SARS coronavirus 2 RNA [facility] This lab was ordered by [facility] and reported by [facility]. ID Date Data Source [id number] 05/25/2020 10:02:00 AM EDT [facility] [address] [place] [address] PHONE: [phone] FAX: [phone] Name .................. : ANTONIO BOWERS Acct Number.................. : [id number] ROOM. ................. : TR-1B MR Number ................... : [id number] Stay type ............. : E/R Discharge Date......... ... : 05/21/20 Admit Date ......... : 05/21/20 Admit Phys .................... : KEYANNA YOUNG Date of ....... : 1960 Family Phys ................... : COLLAZO SCOT Phone .................. : [phone] Age ................................ : 59 Film# .................. .:[id number] Sex ................................. : F Unsigned transcriptions are preliminary reports and do not represent a medical or legal document CHEST 2 VIEWS [id number] COMPLETE:05/21/20 17:02 [facility] [place] [id number] Reason(s): Congestion CHEST X-RAY: 2-VIEWS FINDINGS: Frontal and lateral views of the chest are performed. COPD changes are noted. Pneumonic infiltrate, pneumothorax, pleural effusion, cardiomegaly or acute osseous abnormality is not seen. IMPRESSION: COPD. No acute pathology identified. Electronically Reviewed and Signed By Alfred Tovar MD , 05/25/20 10:02, IAN Transcribe Initials: DZ , Transcribe Date: 05/22/20 02:45, Dictation Date: Copy for: EMERGENCY DEPT via modem Copy for: 710 MED REC DISCHARGED Page 1 of 1 Name Value Range Interpretation Code Description Data Alexa rce(s) Supporting Document(s) ID Date Data Source [id number] 05/21/2020 02:58:00 PM EDT [facility] 1 OrderSheet [facility] Emergency Department [address] [place] [address] Phone #: [phone] [id number] 05/21/2020 14:45 Patient: ELISSA ALVAREZ Sex: F : 1960 Age: 59yWEIGHT:87.0 kg (S) HEIGHT:64 inches (S) BMI:32.9ALLERGIES: Depakote, Meperidine and Related, Sulfa AntibioticsCHIEF COMPLAINT: cough, sinus painDIAGNOSIS: SinusitisLAB ORDERSOrder Description Priority Entered Acknowledged InitialedDIAGNOSTIC STUDY ORDERSOrder Description Priority Entered Acknowledged InitialedChest 2 View STAT 15:09 05/21/2020 15:14 Irma,(Oxygen?(No)) Adriel Briceño R.N., M.D.; Reason for Study: Congestion, CoughMEDICATION/IV/DRIP/FLUID ORDERSOrder Description Priority Entered Acknowledged InitialedTessalon Perles PO 15:09 05/21/2020 15:21 Sorbero,200 mg Adriel Briceño R.N., M.D.;Motrin 600 mg PO 15:10 05/21/2020 15:21 Sorbero,X1 dose: 600 mg Adriel Briceño R.N.(NOW x1) Brianna.DMarlin; Reason for ordering with alerts: Does not appear to be a true allergy -- 15:10 05/21/2020 Adriel Briceño M.D.Cefdinir Capsules 15:35 05/21/2020 15:38 Sorbero,PO 300 mg (NOW Adriel Briceño R.N.x1) M.DMarlin;GENERAL ORDERSOrder Description Priority Entered Acknowledged Initialed[Electronically signed by Adriel Briceño M.D. (16:02 05/21/2020)][Electronically signed by Harsh Solis R.N. (16:12 05/21/2020)][Electronically locked by Harsh Solis R.N. (16:12 05/21/2020)] Name Value Range Interpretation Code Description Data Alexa rce(s) Supporting Document(s) ID Date Data Source [id number] 05/21/2020 02:58:00 PM EDT [facility] 1 Medication Reconciliation Report [facility] Emergency Department [address] [place] [address] Phone #: [phone] [phone]- [phone] 05/21/2020 14:45 Patient: ELISSA ALVAREZ Sex: F [...] Dispense 20 capsule. Refills: 0.Substitution permitted.Pharmacy - [facility] [phone] ; [place] [address]. .Tessalon Perles 100 mg capsule Take 1 capsule three times a day for 5 days -- Dispense 15 capsule.Refills: 1. Substitution permitted.Pharmacy - [facility] [phone] - [phone] ; [place] [address]. Phone: [phone] Medication Reconciliation Report [facility] Emergency Department [address] [place] [address] Phone #: ext- [phone] 05/21/2020 14:45 Patient: ELISSA ALVAREZ Sex: F : 1960 Age: [id number] . -- Adriel Briceño M.D. Name Value Range Interpretation Code Description Data Alexa rce(s) Supporting Document(s) ID Date Data Source [id number] 05/21/2020 02:58:00 PM EDT [facility] 1 Medication Administration Record [facility] Emergency Department [address] [place] [address] Phone #: ext- [phone] 05/21/2020 14:45 Patient: ELISSA ALVAREZ Sex: F : 1960 Age: 59yWeight: 87.0 kgHeight/Length: 64 inBMI: 32.9ALLERGIES: Meperidine and Related, Sulfa Antibiotics, Depakote Date/Time Medication Administered Medication OrderedGiven TESSALON PERLES [PO] Tessalon Perles PO 200 mg15:21 05/21/2020 (BENZONATATE)Harsh Solis, R.N. Dose: 200 mg Capsules POGiven MOTRIN [PO] (IBUPROFEN) Motrin 600 mg PO X1 dose: 83640:21 05/21/2020 Dose: 600 mg Tablets PO mg (NOW x1)Harsh Solis R.N.Given CEFDINIR [PO] Cefdinir Capsules PO 300 mg15:38 05/21/2020 Dose: 300 mg Capsules PO (NOW x1)Harsh Solis RMarlinNMarlin Name Value Range Interpretation Code Description Data Alexa rce(s) Supporting Document(s) ID Date Data Source [id number] 05/21/2020 02:58:00 PM EDT [facility] 1 General Instructions [facility] Emergency Department [address] [place] [address] Phone #: ext- [phone] 05/21/2020 14:45 Patient: [...] Dispense 20 capsule. Refills: 0.Substitution permitted.Pharmacy - [facility] [phone] - [phone] ; [place] [address]. Phone: .Tessalon Perles 100 mg capsule Take 1 capsule three times a day for 5 days -- Dispense 15 capsule.Refills: 1. Substitution permitted.Pharmacy - [facility] [address] - [address] ; [place] [address]. .Follow-up:Return to the emergency department as needed. Follow up with your healthcare provider in five days ifnot better. Call for an appointment. Reason for referral: evaluation and treatment. Summary of careprovided to patient via paper.Understanding of the discharge instructions verbalized by patient. Expected course of illness, disch arge 2 General Instructions [facility] Emergency Department [address] [place] [address] Phone #: ext- [phone] 05/21/2020 14:45 Patient: [...] a towel soaked in hot water. Or, top bottom attaching machine operator the shower and direct the warm spray onto your face. Using a vaporizer along with a 3 General Instructions [facility] Emergency Department [address] [place] [address] Phone #: ext- [phone] 05/21/2020 14:45 Patient: ELISSA ALVAREZ Sex: F : 1960 Age: 59y menthol rub at night may also help soothe symptoms. An expectorant with guaifenesin may help thin nasal mucus and help your sinuses drain fluids. You can use an feke-kik-ithkvfl decongestant, unless a similar medicine was prescribed [...] use decongestants. They can raise blood pressure.) Bwvn-mfp-jqspjef antihistamines may help if allergies contributed to [...] your healthcare provider Seizure 4 General Instructions [facility] Emergency Department [address] [place] [address] Phone #: ext- [phone] 05/21/2020 14:45 Patient: [...] up to date with of your vaccines. [phone] [employer] [address] [place] [address]. All rights reserved. This information is not [...] a prescription for these. 5 General Instructions [facility] Emergency Department [address] [place] [address] Phone #: ext- [phone] 05/21/2020 14:45 Patient: [...] liver damage and Chaka syndrome. Although rare, Chaak syndrome is a veryserious illness usually found [...] rate Fast (rapid) breathing 6 General Instructions [facility] Emergency Department [address] [place] [address] Phone #: ext- [phone] 05/21/2020 14:45 Patient: [...] place where infectious diseases arecommon. 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 [...] you were there Where you stayed (hotel, [place], tent) What you ate and drank If you were bitten by insects or other bugs If you swam in freshwater If you had sex or got a tattoo or piercing while you were thereCheck the [facility] to get more information about specific infectious diseases in the areas you havetraveled. 2547-4484 [employer] [address] [place] [address]. All rights reserved. This information is not intended as asubstitute for professional medical care. Always follow your healthcare professional's instructions. You have been given the following additional information: 7 General Instructions [facility] Emergency Department [address] [place] [address] Phone #: ext- [phone] 05/21/2020 14:45 Patient: ELISSA ALVAREZ Sex: F : 1960 Age: 59ySinusitis (Antibiotic Treatment)Fever Control (Adult)(Electronically signed by Adriel Briceño M.D. 05/21/2020 16:02) Name Value Range Interpretation Code Description Data Alexa rce(s) Supporting Document(s) ID Date Data Source [id number] 05/21/2020 02:58:00 PM EDT [facility] 1 Clinical Report - Nurses [facility] Emergency Department [address] [place] [address] Phone #: ext- [phone] 05/21/2020 14:45 Patient: ELISSA ALVAREZ Sex: F : 1960 Age: 59yTRIAGEArrived by private vehicle. Historian: patient.Triage time: 14:47 05/21/2020. Acuity: LEVEL 3.Chief Complaint: COUGH.14:47 05/21/20. Alert. No acute distress.Onset. (1 weeks ago). [...] Latham RN. 2 Clinical Report - Nurses [facility] Emergency Department [address] [place] [address] Phone #: ext- [phone] 05/21/2020 14:45 Patient: ELISSA ALVAREZ Sex: F : 1960 Age: 59y History 14:47 05/21/20. PAST MEDICAL HX: Immunizations: up-to-date. SOCIAL HX: Former smoker, end date 2009. No alcohol use or drug use. The patient was offered HIV testing but declined and hepatitis C testing but declined. Infectious disease exposure: Has cough. (Returned home from [place], [place] yesterday visiting family (granddaughter had a [...] primary nurse. --14:59 05/21/20 Lorena Latham RN.PHYSICAL VFBKWOGUAI93:10 05/21/20. Ambulatory to room. Patient gowned.GENERAL / NEURO / PSYCH: Alert. Appears in no acute distress.HEENT: Pharynx within normal limits. Voice within normal limits. Mucous membranes are pink.RESPIRATORY: Respirations not labored. Breath sounds within normal limits.CVS: Capillary refill less than 2 seconds. 3 Clinical Report - Nurses [facility] Emergency Department [address] [place] [address] Phone #: ext- [phone] 05/21/2020 14:45 Patient: ELISSA ALVAREZ Sex: F : 1960 Age: 59y SKIN: Skin is warm and dry. Normal skin turgor. --15:10 05/21/20 Harsh Solis R.N.NURSING PROGRESS NOTES14:47 05/21/20. Head of bed elevated. Two patient identifiers checked. Call light placed in reach. Siderails up. Bed placed in lowest position. Brakes of bed on. Patient ready for evaluation- ED physicianedith PIZARRO notified. --15:00 05/21/20 Lorena Latham RN 15:14 05/21/20. Patient transported to radiology by wheelchair with inspector technician. --15:14 05/21/20 Harsh Solis R.N. 15:21 [...] F. Pain level now 4/10. --15:50 05/21/20 [place] count room clerk, [employer] Tech1 Departure time: 15:50 05/21/2020. --15:50 05/21/20 Hasrh Solis R.N.Locked/Released at 05/21/2020 16:12 by Harsh Solis R.N. 4 Clinical Report - Nurses [facility] Emergency Department [address] [place] [address] Phone #: ext- [phone] 05/21/2020 14:45 Patient: ELISSA ALVAREZ Sex: F : 1960 Age: 59y Name Value Range Interpretation Code Description Data Alexa rce(s) Supporting Document(s) ID Date Data Source [id number] 05/21/2020 02:58:00 PM EDT [facility] 1 Clinical Report - Physicians/Mid Levels [facility] Emergency Department [address] [place] [address] Phone #: ext- [phone] 05/21/2020 14:45 Patient: [...] similar symptoms. She has had recent travel- [facility] (just returned from [place]). Similar symptoms previously. Patient has had similar [...] daily. 2 Clinical Report - Physicians/Mid Levels [facility] Emergency Department [address] [place] [address] Phone #: ext- [phone] 05/21/2020 14:45 Patient: [...] controlled; 3 Clinical Report - Physicians/Mid Levels [facility] Emergency Department [address] [place] [address] Phone #: ext- [phone] 05/21/2020 14:45 Patient: ELISSA ALVAREZ [facility]#: [id number] Sex: F : 1960 Age: 59y patient's [...] capsule. Refills: 0. Substitution permitted. Pharmacy - [facility] [phone] ; [place] [address]. . Tessalon Perles 100 mg capsule Take 1 capsule three times a day for 5 days -- Dispense 15 capsule. Refills: 1. Substitution permitted. [facility] [id number] ; [place] [address]. . Follow-up: Return to the emergency department as needed. Follow up with your healthcare provider in five days if not better. Call for an appointment. Reason for referral: evaluation and treatment. Summary of care provided to patient via paper. 4 Clinical Report - Physicians/Mid Levels [facility] Emergency Department [address] [place] [address] Phone #: ext- [phone] 05/21/2020 14:45 Patient: [...] rce(s) Supporting Document(s) ID Date Data Source [id number] 05/05/2020 09:47:00 AM EDT [facility] ([facility], ) Name Value Range Interpretation Code Description Data Alexa rce(s) Supporting Document(s) Pyridoxine [Mass/volume] in Serum or Plasma 5.2 ug/L 2.0-32.8 [facility], ) Specimen Comment: Test(s) 736000-Bjmyhgy E(Alpha Tocopherol); 724810- Specimen Comment: Vitamin E(Gamma Tocopherol); 309706-Kzshxql B6; 856243- Specimen Comment: Vit. B1, Whole Blood Specimen Comment: was developed and its performance characteristics Specimen Comment: determined by [facility]. It has not been cleared or approved Specimen Comment: by the Food and Drug Administration. Thiamine [Mass/volume] in Blood 124.4 nmol/L 66.5-200.0 [facility] ([facility], ) Specimen Comment: Test(s) 924225-Rvddqmo E(Alpha Tocopherol); 603271- Specimen Comment: Vitamin E(Gamma Tocopherol); 488430-Bxlyswg B6; 129775- Specimen Comment: Vit. B1, Whole Blood Specimen Comment: was developed and its performance characteristics Specimen Comment: determined by [facility]. It has not been cleared or approved Specimen Comment: by the Food and Drug Administration. Nuclear IgG Ab [Units/volume] in Serum by Flow cytomet ry (FC) Laboratory test result [facility] ([facility]) Specimen Comment: Test(s) 396311-Sukxtwn E(Alpha Tocopherol); 350307- Specimen Comment: Vitamin E(Gamma Tocopherol); 333435-Iknepuz B6; 820565- Specimen Comment: Vit. B1, Whole Blood Specimen Comment: was developed and its performance characteristics Specimen Comment: determined by [facility]. It has not been cleared or approved Specimen Comment: by the Food and Drug Administration. Topiramate [Mass/volume] in Serum or Plasma 12.1 ug/mL 2.0-25.0 [facility], ) This test was developed and its performa nce characteristics determined by [facility]. It has not been cleared or approved by the Food and Drug Administration. Detection Limit = 1.0 Performed at: - [facility] [id number] Environmental Manager: Clayton Singer MD, Phone: [phone] Performed at: - [facility] [id number] Environmental Manager: Brie Sanchez MD, Phone: [phone] ID Date Data Source [id number] 05/05/2020 09:47:00 AM EDT [facility] ([facility]) Name Value Range Interpretation Code Description Data Alexa rce(s) Supporting Document(s) Vitamin E(Gamma Tocopherol) 2.8 mg/L 0.5-5.5 [facility] ([facility]) Reference intervals for alpha and gamma- tocopherol determined from National Health and Nutrition Examination Survey, 9535-6135. Individuals with alpha-tocopherol levels less than 5.0 mg/L are considered vitamin E deficient. Vitamin E(Alpha Tocopherol) 11.7 mg/L 7.0-25.1 [facility] ([facility]) ID Date Data Source [id number] 05/05/2020 09:46:00 AM EDT [facility] ([facility], ) Name Value Range Interpretation Code Description Data Alexa rce(s) Supporting Document(s) Hemoglobin A1c 5.9 % [facility] ([facility]) <content>REFERENCE RANGES:</content><br/ ><content></content>
<content><=5.6% NORMAL</content>
<content>5.7-6.4% SUGGESTS IMPAIRED GLUCOSE METABOLISM/PREDIABETIC</content>
<content>>= 6.5% ABNORMAL</content>
<content></content> Estimated Average Glucose 123 mg/dL 60-110 [facility] ([facility]) ID Date Data Source [id number] 05/05/2020 09:46:00 AM EDT [facility] Name Value Range Interpretation Code Description Data Alexa rce(s) Supporting Document(s) Erythrocyte sedimentation rate by 2H Westergren method 18 mm/hr 0-3 0 [facility] ID Date Data Source [id number] 05/05/2020 09:46:00 AM EDT [facility] ([facility]) Name Value Range Interpretation Code Description Data Alexa rce(s) Supporting Document(s) White Blood Count 6.3 10 4.0-10.0 [facility] ([facility]) Red Blood Count 4.94 10 4.00-5.40 [facility] ([facility]) Hematocrit 45.2 % 36.0-47.0 [facility] ([facility]) Mean Corpuscular Volume 91.5 fl 80.0-96.0 M [facility] ([facility]) Hemoglobin 14.3 g/dL 12.0-15.5 [facility] ([facility]) Mean Corpuscular Hemoglobin 28.9 pg 27.0-33.0 [facility] ([facility]) Mean Corpuscular HGB Conc 31.6 g/dL 32.0-36.5 [facility] ([facility]) Neutrophils % 50.2 % 36.0-66.0 [facility] ([facility]) Platelet Count, Automated 311 10 150-450 [facility] ([facility]) Red Cell Distribution Width 13.0 % 11.5-14.5 [facility] ([facility]) Oliver % 6.8 % 0.0-5.0 [facility] ([facility]) Eos % 4.0 % 0.0-3.0 [facility] ([facility]) Lymph % 37.7 % 24.0-44.0 [facility] ([facility]) Baso % 0.8 % 0.0-1.0 [facility] ([facility]) Nucleated Red Blood Cell % 0.0 % 0-0 [facility] ([facility]) Immature Granulocyte % 0.5 % 0-3.0 [facility] ([facility]) Neutrophils # 3.2 10 1.5-8.5 [facility] ([facility]) Lymph # 2.4 10 1.5-5.0 [facility] ([facility]) Oliver # 0.4 10 0.0-0.8 [facility] ([facility]) Eos # 0.3 10 0.0-0.5 [facility] ([facility]) Baso # 0.1 10 0.0-0.2 [facility] ([facility]) ID Date Data Source [id number] 05/05/2020 09:46:00 AM EDT [facility] ([facility]) Name Value Range Interpretation Code Description Data Alexa rce(s) Supporting Document(s) Rheumatoid factor [Units/volume] in Serum or Plasma Laboratory test result [facility] ([facility]) ID Date Data Source [id number] 05/05/2020 09:46:00 AM EDT [facility] ([facility]) Name Value Range Interpretation Code Description Data Alexa rce(s) Supporting Document(s) Vitamin B12 Level 418 pg/mL [facility] ([facility]) VITAMIN B12 NORMAL RANGE NORMAL 247 - 911 PG/ML INDETERMINATE 211 - 246 PG/ML DEFICIENT LESS THAN 211 PG/ML Folate 7.5 ng/mL [facility] ([facility]) FOLATE NORMAL RANGE NORMAL GREATER THAN 5.4 NG/ML INDETERMINATE 3.4-5.4 NG/ML DEFICIENT LESS THAN 3.4 NG/ML ID Date Data Source [id number] 05/05/2020 09:46:00 AM EDT [facility] ([facility]) Name Value Range Interpretation Code Description Data Alexa e(s) Supporting Document(s) Blood Urea Nitrogen 18 mg/dL 7-18 [facility] ([facility], ) Glucose, Fasting 99 mg/dL 70-100 [facility] ([facility]) Creatinine For GFR 1.21 mg/dL 0.55-1.30 [facility] ([facility]) Potassium Serum 4.2 meq/L 3.5-5.1 [facility] ([facility]) Sodium Level 142 meq/L 136-145 [facility] ([facility]) Glomerular Filtration Rate 48.7 [facility] ([facility]) <content>Units are mL/min/1.73 m2</content>
<content></content>
<content>Chronic Kidney Disease Staging per NKF:</content>
<content></content>
<content>Stage I & II GFR >=60 Normal to Mildly Decreased</content>
<content>Stage III GFR 30- 59 Moderately Decreased</content>
<content>Stage IV GFR 15-29 Severely Decreased</content>
<content>Stage V GFR <15 Very Little GFR Left</content>
<content>ESRD GFR <15 on SALON SHAMPOO ASSISTANT</content>
<content></content> Anion Gap 7 meq/L 8-16 [facility] ([facility]) Carbon Dioxide Level 25 meq/L 21-32 [facility] ([facility]) Chloride Level 110 meq/L 98-107 [facility] ([facility]) Alt/SGPT 29 U/L 12-78 [facility] ([facility]) Calcium Level 9.5 mg/dL 8.5-10.1 [facility] ([facility]) Ast/Sgot 14 U/L 7-37 [facility] ([facility]) Alkaline Phosphatase 169 U/L 45-117 [facility] ([facility]) Bilirubin,Total 0.3 mg/dL 0.2-1.0 [facility] ([facility]) Total Protein 7.2 GM/DL 6.4-8.2 [facility] ([facility], ) Albumin/Globulin Ratio 1.2 1.2-2.2 [facility] ([facility], ) Albumin 3.9 GM/DL 3.2-5.2 [facility] ([facility], ) ID Date Data Source [id number] 05/05/2020 09:46:00 AM EDT [facility] Name Value Range Interpretation Code Description Data Alexa rce(s) Supporting Document(s) HGBA1C 5.9 % N [facility] ID Date Data Source [id number] 05/05/2020 09:46:00 AM EDT [facility] Name Value Range Interpretation Code Description Data Alexa rce(s) Supporting Document(s) BG FASTING 99 mg/dL 70-100 N [facility] ID Date Data Source [id number] 05/05/2020 09:46:00 AM EDT [facility] Name Value Range Interpretation Code Description Data Alexa rce(s) Supporting Document(s) ESR 18 mm/hr 0-30 N [facility] HCT 45.2 % 36.0-47.0 N [facility] HGB 14.3 g/dL 12.0-15.5 N [facility] MCH 31.6 G/DL pg 32.0-36.5 L [facility] MCHC 28.9 PG % 27.0-33.0 N [facility] PLATELETS 311 10 10*3/mm3 150-450 N [facility] RBC 4.94 10 10*6/mm3 4.00-5.40 [facility] RDW 13.0 % 11.5-14.5 N [facility] WBC TOTAL 6.3 4.0-10.0 N [facility] ID Date Data Source [id number] 04/28/2020 01:00:47 PM EDT [facility] Measurements & CalculationsHeight: 64 inches (5 ft. [...] you seen another healthcare provider? Yes - [facility] radiology - MRI, Neurology Have you seen [...] during this visit, including review of any xaxp-xfz-gtaifxb medications, herbal therapies, and/or supplements.Allergy ReviewAllergy List [...] Problems:Added: Cellulitis of right finger (ICD- 681.02) (GKL85-H25.011) Assessment: Instructions: Keflex for 7 days.Warm soaks.Tylenol prn.Assessed:Chronic low back pain (ICD-724.2) (PIX47-D81.5) Assessment: Instructions: Chronic.Will defer discussion of this [...] (Critical)Orders:Adult - Ofc Vst, EST, Level III [CPT-57259] Medications:KEFLEX 500 MG ORAL CAPSULE (CEPHALEXIN) One po tid #21[Capsule] x 0 Route:ORAL Entered and Authorized by: Higinio Collazo MD Method used: Electronically to [facility] (retail) [address] [place] [address] Note to Pharmacy: Route: ORAL; RxID: [id number] signed by Higinio Collazo MD on 04/28/2020 at 2:04 PM Name Value Range Interpretation Code Description Data Alexa rce(s) Supporting Document(s) ID Date Data Source [id number] 04/16/2020 12:46:03 PM EDT [facility] Current Problems: Mammography abnormal ( ICD-793.80) (FLH87-P54.8)Lumbar radiculopathy (ICD-724.4) (CZI27-Y01.16)Localization-related (focal) (partial) symptomatic epilepsy and epileptic syndromes with simple partial seizures, intractable, without status epilepticus (MYI84-M83.119)Other constipation (SEK66-J13.09)Mixed hyperlipidemia (GLN57-G76.2)Chronic low back pain (ICD- 724.2) (MRJ60-H81.5)Problem list reviewed during this update.Current Medications: CHLORHEXIDINE [...] #6[E] [place] On #5 Chart Notes:jlam (Apr 16 2020 2:59PM): Additional PPE requirements [...] rce(s) Supporting Document(s) ID Date Data Source [id number] 03/30/2020 12:00:00 AM EDT [facility] Higinio Collazo MD Patient Name: ELISSA ALVAREZ[address] Date of : 1960[place] [address] Date of Exam: 03/30/2020PH#: Fax: [phone] EXAM: MRI LUMBAR SPINE WITHOUT [...] of your patient.Dictated and Authenticated by: Zack Mak MD 03/30/2020 9:01 AM [facility] ( & Jose)Marguerite/Ivy you for referring ELISSA ALVAREZ to our office. Electronically Signed - ELAINE 03/30/20 9:05 Name Value Range Interpretation Code Description Data Alexa rce(s) Supporting Document(s) ID Date Data Source [id number] 03/19/2020 08:51:43 AM EDT [facility] [facility] Measurements & CalculationsHeight: 64 inches (5 ft. [...] during this visit, including review of any dybd-nkg-xckeofj medications, herbal therapies, and/or supplements.Allergy ReviewAllergy List was reviewed and/or updated during this visit.Adult Preventive CareProvider Calculated and Reviewed all Clinical Protocols for patient today. Labs/Meds/Other Counseling-Nutrition and Physical Activity:BMI Interpretation: Obese (03/19/2020) Counseling: Done (03/19/2020) Physical Activity: Done (03/19/2020)Cancer Screening Mammogram Reviewed: Previous Comments: 2 years ago in [place] report scanned (02/06/2020)Pap Smear/HPV TestingReviewed: Previous Comments: total hysterectomy ( 0)ColonoscopyReviewed:Previous Comments: would like referral last one done in [place] (02/06/2020)Review of Systems General: Denies dizziness, fatigue. [...] GoodAssessment & Plan Problems:Added: Mammography abnormal (ICD-793.80) (CMN01-C34.8) Assessment: Instructions: Area of concern on left upper outer breast 2 years ago on mammogram but read as likely benign. Report on chart.Left breast pain for 2 months. Inlikely cardiac. Will await result of mammogram and make further decisions based on this.Will set up a mammogram.Assessed:Mixed hyperlipidemia (FAY74-O03.2) Assessment: Instructions: On Lipitor and this seems [...] (Critical)Orders:Adult - Ofc Vst, EST, Level III [CPT-62436] Mammography - Diagnostic- Bilateral; including CAD [CPT-43306] Ultrasound, breast, unilateral; complete [CPT-54811] COMP METABOLIC PANEL [CPT-16768] TSH [CPT-82447] LIPID PANEL [CPT-22115] Electro nically signed by Higinio Collazo MD on 03/19/2020 at 9:37 AM Name Value Range Interpretation Code Description Data Alexa rce(s) Supporting Document(s) ID Date Data Source [id number] 03/11/2020 08:21:24 AM EDT [facility] In-House Blood TestsDate/Time Colle cted: March 11, 2020 7:55 AMTest Result Reference Range Normal ValueComments: taken from right ac, tolerated well.Yas Sam, March 11, 2020 8:22 AMAssessment & Plan Orders:10213-Nmx Vst-Est Level I [CPT-65095] 10161 - Venipuncture [CPT-42122] Name Value Range Interpretation Code Description Data Alexa rce(s) Supporting Document(s) ID Date Data Source [id number] 03/11/2020 07:55:00 AM EDT [facility] Name Value Range Interpretation Code Description Data Alexa rce(s) Supporting Document(s) BG FASTING 98 mg/dL 70-100 [facility] TSH 2.690 microintl units/mL 0.358-3.740 [facility] ID Date Data Source [id number] 02/06/2020 08:33:19 AM EDT [facility] Measurements & CalculationsHeight: 64 inches (5 ft. [...] HistoryAny possibility of ? NoComments: total hysterectomy 2003Healthcare HistorySince your last office visit...Have you been [...] getting injections at the pain clinic in [place]. Spinal stenosis and lipomatosis. Injections were helping. [...] during this visit, including review of any lhqt-xer-vnpvrsa m edications, herbal therapies, and/or supplements.Allergy ReviewAllergy List was reviewed and/or updated during this visit.Adult Preventive CareProvider Calculated and Reviewed all Clinical Protocols for patient today. Labs/Meds/Other Counseling-Nutrition and Physical Activity:BMI Interpretation: Obese (02/06/2020) Counseling: Done (02/06/2020) Physical Activity: Done (02/06/2020)Cancer Screening Mammogram Reviewed: Today's Comments[place] report scannedPap Smear/HPV TestingReviewed: Today's Comments: total hysterectomy ColonoscopyReviewed:Today's Comments: [facility]: Denies dizziness, fatigue, [...] is? FairAssessment & Plan Problems:Added: Mixed hyperlipidemia (KWC59-I77.2)Chronic low back pain (ICD-724.2) (ICD10- M54.5) Assessment: Instructions: Refer to pain clinic.I am somewhat concerned about the new onset constipation so I am ordering an MRI.Other constipation (BFS29-Y14.09) Assessment: Instructions: Posssibly due to dietary changes [...] (Critical)Orders:Adult - Ofc Vst, NEW, Level III [CPT-69084] COMP METABOLIC PANEL [CPT-79948] LIPID PANEL [CPT-54405] TSH [CPT-00796] MRI SPINAL CANAL LUMBAR W/O CONTRAST MATERIAL [CPT-56694] Name Value Range Interpretation Code Description Data Alexa rce(s) Supporting Document(s) ID Date Data Source [id number] 01/13/2020 11:51:00 AM EDT [facility] Patient: ELISSA ALVAREZ Observation Re port - [facility].VisitID: [id number] [place] [address] [phone], FRegistration Date/Time: 01/12/2020 14:53 Weight:81.6 kg (S). [...] (S). BMI:30.9 (Electronically signed by Alexx Car PYasemin 01/13/2020 11:36) Addenda for ELISSA ALVAREZ VisitID: [id number] Date: 01/12/2020 01/13/2020 11:49Norco 5 mg-325 mg tablet Take 1 tablet every four hours as needed for pain for 1 days -- Dispense 6 tablet. Refills: 0. Substitution permitted.Pharmacy - [id number] - [id number], [place] [phone] . Patieent drove to [facility] , I had to resend it to [facility].(Electronically sign ed by Alexx Car P.Johnathan - 01/13/2020 11:49) Name Value Range Interpretation Code Description Data Alexa rce(s) Supporting Document(s) ID Date Data Source [id number] 01/13/2020 11:45:00 AM [facility]: [facility] Observation Re port - [facility].VisitID: [id number] [place] [address] [phone], FRegistradelaware hospital [facility] Date/Time: 01/12/2020 14:53 Weight:81.6 kg (S). Height/Length:64 [...] rce(s) Supporting Document(s) ID Date Data Source [id number] 01/12/2020 06:47:00 PM EDT [facility] Patient: ELISSA ALVAREZ Observation Re port - [facility] SsdVisitID: [id number] [place] [address] [phone], FRegistration Date/Time: 01/12/2020 14:53 Weight:81.6 kg (S). [...] Name Value Range Interpretation Code Description Data [facility] rce(s) Supporting Document(s) ID Date Data Source [id number] 01/12/2020 04:44:00 PM EDT [facility] DATE OF EXAMINATION: 01/12/2020 15:39 [...] Name Value Range Interpretation Code Description Data [facility] rce(s) Supporting Document(s) ID Date Data Source [id number] 01/12/2020 04:44:00 PM EDT [facility] [...] rce(s) Supporting Document(s) ID Date Data Source [id number] 01/12/2020 04:44:00 PM EDT [facility] [...] Code Description Data Alexa rce(s) Supporting Document(s) Procedure Social History Code Duration Value Status Description Data Source(s ) Smoking 08/26/2020 12:00:00 AM EST Never Smoker completed Never S moker eCW1 ([facility]) Vital Signs ID Date Data Source UNK Name Value Range Interpretation Code Description Data Source(s) Body height 64 [in_i] 64 [in_i] LOULOU ([facility]) Diastolic blood pressure 84 mm[Hg] 84 mm[Hg] eCW1 ([facility], [facility]) Systolic blood pressure 139 mm[Hg] 139 mm[Hg] e CW1 ([facility], [facility]) Body temperature 99.1 [degF] 99.1 [degF] eCW1 ( [facility]) Respiratory rate 18 /min 18 /min eCW1 ([facility]) Heart rate 85 /min 85 /min eCW1 ([facility]) Body mass index (BMI) [Ratio] 35.39 kg/m2 35.39 kg/m2 eCW1 ([facility]) Body height 64 [in_i] 64 [in_i] W1 ([facility]) Body weight 206.2 [lb_av] 206.2 [lb_av] eCW1 ([facility]) Body weight 3328 [oz_av] 3328 [oz_av] LOULOU ([facility]) Systolic blood pressure 119 mm[Hg] 119 mm[Hg] A [facility] ([facility]) Body mass index (BMI) [Ratio] 35.7 kg/m2 35.7 k g/m2 LOULOU ([facility]) Body height 64 [in_i] 64 [in_i] LOULOU ([facility]) Diastolic blood pressure 82 mm[Hg] 82 mm[Hg] LOULOU ([facility]) Body weight 3328 [oz_av] 3328 [oz_av] LOULOU ([facility]) Systolic blood pressure 119 mm[Hg] 119 mm[Hg] [facility] Body mass index (BMI) [Ratio] 35.7 kg/m2 35.7 k g/m2 LOULOU ([facility]) Body height 64 [in_i] 64 [in_i] LOULOU ([facility]) Diastolic blood pressure 82 mm[Hg] 82 mm[Hg] LOULOU ([facility]) Body weight 3328 [oz_av] 3328 [oz_av] LOULOU ([facility]) Systolic blood pressure 119 mm[Hg] 119 mm[Hg] A THENA ([facility]) Body mass index (BMI) [Ratio] 35.7 kg/m2 35.7 k g/m2 LOULOU ([facility]) Body height 64 [in_i] 64 [in_i] LOULOU ([facility]) Diastolic blood pressure 82 mm[Hg] 82 mm[Hg] LOULOU ([facility]) Body weight 3172 [oz_av] 3172 [oz_av] LOULOU ([facility]) Systolic blood pressure 163 mm[Hg] 163 mm[Hg] A [facility] ([facility]) Body mass index (BMI) [Ratio] 34 kg/m2 34 kg/ m2 LOULOU ([facility]) Body height 64 [in_i] 64 [in_i] LOULOU ([facility]) Diastolic blood pressure 91 mm[Hg] 91 mm[Hg] LOULOU ([facility]) Body weight 3172 [oz_av] 3172 [oz_av] LOULOU ([facility]) Systolic blood pressure 163 mm[Hg] 163 mm[Hg] A THENA ([facility]) Body mass index (BMI) [Ratio] 34 kg/m2 34 kg/ m2 LOULOU ([facility]) Body height 64 [in_i] 64 [in_i] LOULOU ([facility]) Diastolic blood pressure 91 mm[Hg] 91 mm[Hg] LOULOU ([facility]) Body weight 3172 [oz_av] 3172 [oz_av] LOULOU ([facility]) Systolic blood pressure 163 mm[Hg] 163 mm[Hg] A THENA ([facility]) Body mass index (BMI) [Ratio] 34 kg/m2 34 kg/ m2 LOULOU ([facility]) Body height 64 [in_i] 64 [in_i] LOULOU ([facility]) Diastolic blood pressure 91 mm[Hg] 91 mm[Hg] LOULOU ([facility]) Body weight 89.813 kg 89.813 kg LEONOR ([facility], ) [place] body weight 120 [lb_av] 120 [lb_av] MEDEN T ([facility], ) Body mass index (BMI) [Ratio] 34.0 kg/m2 34.0 k g/m2 MEDАЛЕКСАНДР ([facility], ) Body weight 198.00 [lb_av] 198.00 [lb_av] MEDEN T ([facility], ) Body height 64 [in_i] 64 [in_i] LEONOR ([facility], ) 5'4" Diastolic blood pressure 78 mm[Hg] 78 mm[Hg] MEDАЛЕКСАНДР ([facility], ) Systolic blood pressure 132 mm[Hg] 132 mm[Hg] M EDАЛЕКСАНДР ([facility], ) [place] body weight 120 [lb_av] 120 [lb_av] MEDEN T ([facility], ) Body mass index (BMI) [Ratio] 33.5 kg/m2 33.5 k g/m2 MEDENT ([facility], ) Body weight 195.00 [lb_av] 195.00 [lb_av] MEDEN T ([facility], ) Body height 64 [in_i] 64 [in_i] [facility] 5'4" Respiratory rate 14 /min 14 /min [facility], ) Heart rate 94 /min 94 /min [facility], ) Diastolic blood pressure 85 mm[Hg] 85 mm[Hg] [facility], ) Systolic blood pressure 130 mm[Hg] 130 mm[Hg] M RADHIKA ([facility], ) Body weight 3145.6 [oz_av] 3145.6 [oz_av] ATHEN A ([facility]) Systolic blood pressure 120 mm[Hg] 120 mm[Hg] A THENA ([facility]) Body mass index (BMI) [Ratio] 33.87 kg/m2 33.87 kg/m2 LOULOU ([facility]) Body height 64 [in_i] 64 [in_i] LOULOU ([facility]) Diastolic blood pressure 84 mm[Hg] 84 mm[Hg] LOULOU ([facility]) Body weight 3136 [oz_av] 3136 [oz_av] LOULOU ([facility]) Systolic blood pressure 102 mm[Hg] 102 mm[Hg] A THENA ([facility]) Body mass index (BMI) [Ratio] 33.76 kg/m2 33.76 kg/m2 LOULOU ([facility]) Body height 64 [in_i] 64 [in_i] LOULOU ([facility]) Diastolic blood pressure 72 mm[Hg] 72 mm[Hg] LOULOU ([facility]) Body weight 3136 [oz_av] 3136 [oz_av] LOULOU ([facility]) Systolic blood pressure 102 mm[Hg] 102 mm[Hg] A [facility] ([facility]) Body height 64 [in_i] 64 [in_i] LOULOU ([facility]) Diastolic blood pressure 72 mm[Hg] 72 mm[Hg] LOULOU ([facility]) Body weight 3136 [oz_av] 3136 [oz_av] LOULOU ([facility]) Systolic blood pressure 102 mm[Hg] 102 mm[Hg] [facility] Body height 64 [in_i] 64 [in_i] LOULOU ([facility]) Diastolic blood pressure 72 mm[Hg] 72 mm[Hg] LOULOU ([facility]) Body weight 3040 [oz_av] 3040 [oz_av] LOULOU ([facility]) Systolic blood pressure 122 mm[Hg] 122 mm[Hg] A [facility] ([facility]) Body mass index (BMI) [Ratio] 32.73 kg/m2 32.73 kg/m2 LOULOU ([facility]) Body height 64 [in_i] 64 [in_i] LOULOU ([facility]) Diastolic blood pressure 86 mm[Hg] 86 mm[Hg] LOULOU ([facility]) Body weight 3040 [oz_av] 3040 [oz_av] LOULOU ([facility]) Systolic blood pressure 122 mm[Hg] 122 mm[Hg] A [facility] ([facility]) Body height 64 [in_i] 64 [in_i] LOULOU ([facility]) Diastolic blood pressure 86 mm[Hg] 86 mm[Hg] LOULOU ([facility]) Body weight 3040 [oz_av] 3040 [oz_av] LOULOU ([facility]) Systolic blood pressure 122 mm[Hg] 122 mm[Hg] A [facility] ([facility]) Body height 64 [in_i] 64 [in_i] LOULOU ([facility]) Diastolic blood pressure 86 mm[Hg] 86 mm[Hg] LOULOU ([facility]) Patient Treatment Plan of Care Planned Activity Planned Date Details Description Data Source (s) Diazepam 5 MG Oral Tablet [Valium] 08/27/2020 12:00:00 AM EST eCW1 ([facility]) Triamcinolone Acetonide 1 MG/ML Topical Cream LOULOU ([facility]) topiramate 50 MG Oral Tablet LOULOU ([facility]) topiramate 100 MG Oral Tablet LOULOU ([facility]) Prednisone 10 MG Oral Tablet LOULOU ([facility]) POLYETHYLENE GLYCOL 3350 105 MG/ML / Pot assium Chloride 0.92822 MEQ/ML / Sodium Bicarbonate 0.017 MEQ/ML / Sodium Chloride 0.0479 MEQ/ML Oral Solution LOULOU ([facility]) Acetaminophen 325 MG / Oxycodone Hydrochloride 5 MG Oral Tablet LOULOU ([facility]) Nortriptyline 25 MG Oral Capsule LOULOU ([facility]) Oxymetazoline hydrochloride 0.5 MG/ML Nasal [place] LOULOU ([facility]) 12 HR Guaifenesin 600 MG Extended Release Oral Tablet [Mucinex] LOULOU ([facility]) Metoprolol Tartrate 100 MG Oral Tablet LOULOU ([facility]) Acetaminophen 325 MG / Hydrocodone Bitartrate 5 MG Oral Tablet LOULOU ([facility]) Diazepam 5 MG Oral Tablet AT ROEL ([facility]) Codeine Phosphate 2 MG/ML / Guaifenesin 20 MG/ML Oral Solution LOULOU ([facility]) Clarithromycin 500 MG Oral Tablet LOULOU ([facility]) Ciprofloxacin 250 MG Oral Tablet LOULOU ([facility]) Ciprofloxacin 3 MG/ML / Dexamethasone 1 MG/ML Otic Suspension [Cipr odex] LOULOU ([facility]) Cephalexin 500 MG Oral Capsule LOULOU ([facility]) cefdinir 300 MG Oral Capsule LOULOU ([facility]) benzonatate 100 MG Oral Capsule LOULOU ([facility]) Azithromycin 250 MG Oral Tablet LOULOU ([facility]) atorvastatin 20 MG Oral Tablet LOULOU ([facility]) atorvastatin 10 MG Oral Tablet LOULOU ([facility]) Aspirin 81 MG Delayed Release Oral Tablet LOULOU ([facility]) Alprazolam 0.5 MG Oral Tablet LOULOU ([facility]) Alprazolam 0.25 MG Oral Tablet LOULOU ([facility]) Afluria Quad 60 mcg (15 mcg x 4)/0.5 mL intramuscular saul p. LOULOU ([facility]) Triamcinolone Acetonide 1 MG/ML Topical Cream LOULOU ([facility]) topiramate 50 MG Oral Tablet LOULOU ([facility]) topiramate 100 MG Oral Tablet LOULOU ([facility]) Prednisone 10 MG Oral Tablet LOULOU ([facility]) Nortriptyline 25 MG Oral Capsule LOULOU ([facility]) Oxymetazoline hydrochloride 0.5 MG/ML Nasal [place] LOULOU ([facility]) 12 HR Guaifenesin 600 MG Extended Release Oral Tablet [Mucinex] LOULOU ([facility]) Metoprolol Tartrate 100 MG Oral Tablet LOULOU ([facility]) Acetaminophen 325 MG / Hydrocodone Bitartrate 5 MG Oral Tablet LOULOU ([facility]) Codeine Phosphate 2 MG/ML / Guaifenesin 20 MG/ML Oral Solution LOULOU ([facility]) Ciprofloxacin 3 MG/ML / Dexamethasone 1 MG/ML Otic Suspension [Cipr odex] LOULOU ([facility]) Cephalexin 500 MG Oral Capsule LOULOU ([facility]) benzonatate 100 MG Oral Capsule LOULOU ([facility]) Azithromycin 250 MG Oral Tablet LOULOU ([facility]) atorvastatin 20 MG Oral Tablet LOULOU ([facility]) atorvastatin 10 MG Oral Tablet LOULOU ([facility]) Aspirin 81 MG Delayed Release Oral Tablet LOULOU ([facility]) Alprazolam 0.5 MG Oral Tablet LOULOU ([facility]) Alprazolam 0.25 MG Oral Tablet LOULOU ([facility]) Afluria Quad 60 mcg (15 mcg x 4)/0.5 mL intramuscular saul p. LOULOU ([facility]) Triamcinolone Acetonide 1 MG/ML Topical Cream LOULOU ([facility]) topiramate 50 MG Oral Tablet LOULOU ([facility]) topiramate 100 MG Oral Tablet LOULOU ([facility]) Prednisone 10 MG Oral Tablet LOULOU ([facility]) Nortriptyline 25 MG Oral Capsule LOULOU ([facility]) Oxymetazoline hydrochloride 0.5 MG/ML Nasal [place] LOULOU ([facility]) 12 HR Guaifenesin 600 MG Extended Release Oral Tablet [Mucinex] LOULOU ([facility]) Metoprolol Tartrate 100 MG Oral Tablet LOULOU ([facility]) Acetaminophen 325 MG / Hydrocodone Bitartrate 5 MG Oral Tablet LOULOU ([facility]) Codeine Phosphate 2 MG/ML / Guaifenesin 20 MG/ML Oral Solution LOULOU ([facility]) Ciprofloxacin 3 MG/ML / Dexamethasone 1 MG/ML Otic Suspension [Cipr odex] LOULOU ([facility]) Cephalexin 500 MG Oral Capsule LOULOU ([facility]) benzonatate 100 MG Oral Capsule LOULOU ([facility]) Azithromycin 250 MG Oral Tablet LOULOU ([facility]) atorvastatin 20 MG Oral Tablet LOULOU ([facility]) atorvastatin 10 MG Oral Tablet LOULOU ([facility]) Aspirin 81 MG Delayed Release Oral Tablet LOULOU ([facility]) Alprazolam 0.5 MG Oral Tablet LOULOU ([facility]) Alprazolam 0.25 MG Oral Tablet LOULOU ([facility]) Afluria Quad 8510-7114 60 mcg (15 mcg x 4)/0.5 mL intramuscular saul p. LOULOU ([facility])
[2020-09-29 22:24] VITALS: BP 150/84
== END 2020-09-29 22:25 | disposition home or self-care (01) ==
LOC: M ED 17:00
DX: R10.9 Unspecified abdominal pain (principal); K57.30 Diverticulosis of large intestine without perforation or abscess without bleeding; K21.9 Gastro-esophageal reflux disease without esophagitis; J44.9 Chronic obstructive pulmonary disease, unspecified; Z88.1 Allergy status to other antibiotic agents; Z88.2 Allergy status to sulfonamides
CPT/HCPCS: 74177; 80047; 80076; 81001; 83690; 85025; 96361; 96374; 96375; 99284; J1885; J2270; J2405; Q9967

== ENCOUNTER → 2020-10-28 | Outpatient (CLI) | payer OTHER ==
[~2020-10-28] MED LIST changes: +MULT-90 PO
--- NOTE | 2020-11-04 05:43 | ECWPNPC ---
PATIENT NAME: ELISSA ALVAREZ : 1960 GENDER: FEMALE VISIT DATE: 10/28/2020 DISCHARGE DATE: 10/28/20 1605 VISIT LOCKED DATE TIME: PHYSICIAN: DENA ELKINS RESOURCE: DENA ELKINS REASON FOR APPOINTMENT 1. REVIEW MRI L/S SPINE HISTORY OF PRESENT ILLNESS GENERAL: HERE FOR FOLLOW-UP AFTER INITIAL CONSULT FOR CHRONIC NECK AND LOW BACK PAIN. MRI OF THE LUMBAR SPINE THAT I ORDERED AT INITIAL CONSULT IS REVIEWED. THIS IS SHOWING MILD FACET ARTHROPATHY/SPONDYLOSIS. CONTINUES TO HAVE SIGNIFICANT ISSUES WITH LOW BACK PAIN. DISCUSSED TREATMENT OPTIONS. -. FALL RISK SCREENING: SCREENING : ONE FALL REPORTED IN THE LAST YEAR WITH INJURIES, RIGHT FOOT FRACTURE. PAIN SCREENING: PATIENT HAS A COMPLAINT OF ACUTE OR CHRONIC PAIN :YES LOCATION OF PAIN:LOW BACK INTENSITY OF PAIN (SCALE OF 1 TO 10):5 WHAT DOES YOUR PAIN FEEL LIKE:ACHING, THROBBING DURATION:CONTINOUS, CONSTANT PAIN IS INCREASED BY:ACTIVITIES PAIN IS DECREASED BY:USE OF PAIN MEDICATIONS STRETCHING, LOW IMPACT ACTIVITY PROGRAM NURSING NOTE: -. PAIN CENTER INTAKE QUESTIONS: DO YOU HAVE A HISTORY OF MRSA? :NO DO YOU TAKE A BLOOD THINNERS? :NO DO YOU HAVE ANY BLEEDING DISORDERS? :NO ANY NEW NUMBNESS OR WEAKNESS IN YOUR LEGS OR ARMS? :YES LEGS ANY PACEMAKER,DEFIBRILLATOR, OR DORSAL COLUMN STIMULATOR? :NO DO YOU HAVE ANY RASHES OR OPEN SORES? :NO ARE YOU ALLERGIC TO IV DYE? :NO ARE YOU DIABETIC? :NO ANY NEW PROBLEMS WITH YOUR MEDICATIONS? :NO HAVE YOU RECEIVED A VACCINE IN THE PAST 30 DAYS? :NO DO YOU PLAN TO RECEIVE A VACCINE IN THE NEXT 21 DAYS? :NO DO YOU NEED ANY PRESCRIPTION? :NO DO YOU TAKE ANY IMMUNOSUPPRESSIVE MEDICATIONS? :NO DO YOU HAVE ANY KIDNEY OR LIVER DISEASE? :NO IS THERE A CHANCE YOU COULD BE ? :NO ARE YOU BREAST FEEDING? :NO CURRENT MEDICATIONS TAKING CHLORHEXIDINE GLUCONATE 0.12 % SOLUTION RINSE MOUTH WITH 10ML FOR 1 MINUTE BEFORE BED MOUTH/THROAT TAKING AMITRIPTYLINE HCL 50 MG TABLET 2 TABLET AT BEDTIME ORALLY ONCE A DAY TAKING LIDOCAINE 4 % PATCH DIRECTED EXTERNALLY TAKING LIPITOR 40 MG TABLET 1 TABLET ORALLY ONCE A DAY TAKING TOPAMAX 200 MG TABLET DIRECTED ORALLY TWICE DAILY NOT-TAKING TOPIRAMATE 200 MG TABLET TAKE ONE TABLET BY MOUTH TWICE A DAY ORALLY NOT-TAKING VALIUM 5 MG TABLET 1 TAB ORALLY 30 MINUTES PRIOR TO MRI MDD 1 NOT-TAKING OMEPRAZOLE MAGNESIUM 20 MG TABLET DELAYED RELEASE 1 TABLET 30 MINUTES BEFORE MORNING MEAL ORALLY ONCE A DAY NOT-TAKING ALPRAZOLAM 0.25 MG TABLET (SCHEDULE IV DRUG) TAKE 1 TABLET BY MOUTH ONE HOUR BEFORE MRI MAXIMUM DAILY DOSE 1 ORAL MEDICATION LIST REVIEWED AND RECONCILED WITH THE PATIENT PAST MEDICAL HISTORY GENERALIZED CONVULSIVE EPILEPSY LOCALIZATION-RELATED EPILEPSY LOW BACK PAIN SPONDYLOLYSIS LUMBAR RADICULOPATHY NECK PAIN 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 MIGRAINE WITHOUT AURA, NOT REFRACTORY DISORDERS OF INITIATING AND MAINTAINING SLEEP BILATERAL CARPAL TUNNEL SYNDROME LIPOMITOSIS ALLERGIES VALPROIC ACID SULFAMETHOXAZOLE SOCIAL HISTORY GENERAL: TOBACCO USE ARE YOU A:NONSMOKER LATEX QUESTIONNAIRE LATEX ALLERGY : HAVE YOU EVER DEVELOPED ANY TYPE OF REACTION AFTER HANDLING LATEX PRODUCTS SUCH RUBBER GLOVES, CONDOMS, DIAPHRAGMS, BALLOONS, SOCKS, OR UNDERWEAR?NO LATEX ALLERGY : HAVE YOU EVER DEVELOPED ANY TYPE OF REACTION DURING OR AFTER DENTAL APPOINTMENT, VAGINAL/RECTAL EXAMINATION, SURGICAL PROCEDURE, OR ANY OTHER EXPOSURE?NO DATE ASKED : 08/26/2020 LATEX RISK : HAVE YOU EVER HAD ANY DIFFICULTY BREATHING OR HIVES AFTER EATING OR HANDLING ANY FRUITS, OR VEGETABLES; SUCH KIWI, BANANAS, STONE FRUITS, OR CHESTNUTSNO LATEX RISK : DO YOU HAVE A PREVIOUS PERSONAL HISTORY OF MORE THAN NINE SURGERIES, SPINA BIFIDA, OR REPEATED CATHERIZATIONS? NO LATEX RISK : ARE YOU FREQUENTLY EXPOSED TO LATEX PRODUCTS IN YOUR OCCUPATION?NO ALCOHOL USE: NO. RECREATIONAL DRUG USE DRUG USE?YES LEARNING BARRIERS / SPECIAL NEEDS BARRIERS TO LEARNING?NO HEARING IMPAIRED?NO VISION IMPAIRED?YES COGNITIVELY IMPAIRED?YES PATIENT STATES SHE BELIEVES IT STEMS FROM THE SEIZURES. :CORRECTIVE LENSES :LEARNING DISABILITY READINESS TO LEARN?YES LEARNING PREFERENCES?YES :BOOKLETS, HANDOUTS LEARNING CAPABILITIES PRESENT?YES EMOTIONAL BARRIERS?NO SPECIAL DEVICES?YES :CANE, BRACE PRODUCT PLANNER NEEDED?NO REVIEW OF SYSTEMS CONSTITUTIONAL: ANY RECENT FEVER NO . CHILLS NO . WEIGHT CHANGE OF UNKNOWN REASONS NO . GASTROENTEROLOGY: NEW UNEXPLAINABLE CHANGES IN BOWEL CONTROL NO . CONSTIPATION NO . GENITOURINARY: ANY NEW CHANGE IN BLADDER CONTROL? NO . NEUROLOGY: NEW ONSET DIZZINESS OR NEUROLOGICAL CHANGES NOT MENTIONED NO . NEW NUMBNESS OR PAIN PATTERNS NOT MENTIONED AND PERTINENT TO TODAY'S VISIT NO . CARDIOLOGY: NEW CHEST PRESSURE NO . PATIENT DENIES NO . RESPIRATORY: UNEXPLAINABLE COUGH NO . NEW SHORTNESS OF BREATH NO . VITAL SIGNS WT 209.6 LBS, HT 64 IN, BMI 35.97 INDEX, BP 126/81 MM HG, HR 85 /MIN, RR 18 /MIN, TEMP 98.0 F, OXYGEN SAT % 100%, SAFE IN ENV? (Y/N) Y, NA INITIALS MN 13:58, REVIEWED BY: EM. EXAMINATION GENERAL EXAMINATION: GENERAL AWAKE,ALERT ,PLEAASANT . PSYCH AFFECT NORMAL . LUNGS: LUNG [place] ARE CLEAR TO AUSCULTATION BILATERALLY. GOOD MOVEMENT OF AIR . HEART: S1, S2 IN A REGULAR RATE AND RHYTHM. NO SIGNIFICANT MURMURS, RUBS OR GALLOPS NOTED . LUMBAR: PALPATION: + FOR PAIN OVER L/S SPINE. + FOR PAIN OVER L/S PARASPINALS .SPECIFIC POINT TENDERNESS OVER BILAT L4/5-L5/S1 LUMBAR FACETS WITH FACET LOADING. NEUROLOGIC EXAM: NORMAL SENSATION LIGHT TOUCH BILAT. LOWER EXTREMITIES . DIAGNOSTIC TESTS REVIEWED MRI L/S SPINE 10/2020. ASSESSMENTS SPONDYLOSIS OF LUMBOSACRAL REGION WITHOUT MYELOPATHY OR RADICULOPATHY - M47.817 (PRIMARY) TREATMENT SPONDYLOSIS OF LUMBOSACRAL REGION WITHOUT MYELOPATHY OR RADICULOPATHY SALINE LOCK (ORDERED FOR 11/04/2020) MEDICATION: OXYCODONE HCL TAB 5MG ORALLY (ORDERED FOR 11/04/2020) MEDICATION: VALIUM TAB 5MG ORALLY (DIAZEPAM) (ORDERED FOR 11/04/2020) NOTES: BILATERAL THERAPEUTIC LUMBAR FACET BLOCK L4-5,L5-S1. OTHERS NOTES: FACET JOINT INJECTION MATERIAL WAS PRINTED, REVIEWED AND GIVEN TO PT. EM. PROCEDURE CODES FA211 ESTABILISHED PATIENT [facility] FACILITY CHARGE DISPOSITION & COMMUNICATION FOLLOW UP POST PROCEDURE (REASON: BILATERAL THERAPEUTIC LUMBAR FACET BLOCK L4-5,L5-S1) ELECTRONICALLY SIGNED BY GUANAKITO CEJA ON 11/03/2020 AT 04:00 PM EDT DISCLAIMER : THIS IS A VISIT SUMMARY EXTRACTED FROM THE [employer] CHART. IT IS NOT A COPY OF THE [employer] PROGRESS NOTE. TALAT
== END ==
LOC: M PAIN 14:45
PROVIDERS: ATTEND Nurse Practitioner Family
DX: M47.26 Other spondylosis with radiculopathy, lumbar region (principal); G40.009 Localization-related (focal) (partial) idiopathic epilepsy and epileptic syndromes with seizures of localized onset, not intractable, without status epilepticus; M47.812 Spondylosis without myelopathy or radiculopathy, cervical region; G43.009 Migraine without aura, not intractable, without status migrainosus; Z79.899 Other long term (current) drug therapy; Z88.2 Allergy status to sulfonamides; Z88.8 Allergy status to other drugs, medicaments and biological substances

== ENCOUNTER → 2020-11-04 | Outpatient (CLI) | payer OTHER | LOC: M LABSMTC 12:38 | PROVIDERS: ATTEND Anesthesiology | DX: Z11.52 Encounter for screening for COVID-19 (principal) ==

== ENCOUNTER → 2020-11-09 | Outpatient (CLI) | payer OTHER ==
[~2020-11-09] MED LIST changes: +BUPIVACAINE HCL 0.25% 30ML VIAL As Ordered ONE; +ISOVUE-M 300 61% 15ML VIAL As Ordered ONE; +LIDOCAINE 1% SDV 30ML VIAL As Ordered ONE; +TRIAMCINOLONE ACETONIDE SUSP 40 MG/ML VIAL (J3301) As Ordered ONE; +diazePAM 5MG TABLET As Ordered ONE; +oxyCODONE 5MG TAB As Ordered ONE
--- NOTE | 2020-11-09 19:14 | REP ---
INDICATION: BILATERAL THERAPEUTIC LUMBAR FACET BLOCK. COMPARISON: None. TECHNIQUE: Four C-arm views lower lumbar facet joints. FINDINGS: [place] are seen along the lower lumbar facet joints. A small amount of contrast is injected. IMPRESSION: 30 seconds fluoroscopy time utilized. <Electronically signed by Ford Lee > 11/09/20 8219
--- NOTE | 2020-11-11 00:58 | ECWPNPC ---
PATIENT NAME: ELISSA ALVAREZ : 1960 GENDER: FEMALE VISIT DATE: 11/09/2020 DISCHARGE DATE: 11/09/20 1306 VISIT LOCKED DATE TIME: PHYSICIAN: YONG WHARTON MD RESOURCE: YONG WHARTON MD REASON FOR APPOINTMENT 1. BILATERAL THERAPEUTIC LUMBAR FACET BLOCK L4-L5, L5-S1 HISTORY OF PRESENT ILLNESS GENERAL: -. -. FALL RISK SCREENING: SCREENING : ONE FALL REPORTED IN THE LAST YEAR WITH INJURIES, RIGHT FOOT FRACTURE. PAIN SCREENING: PATIENT HAS A COMPLAINT OF ACUTE OR CHRONIC PAIN :YES LOCATION OF PAIN:LOW BACK, LEG(S) INTENSITY OF PAIN (SCALE OF 1 TO 10):4 WHAT DOES YOUR PAIN FEEL LIKE:ACHING, THROBBING CRAMPING, RADIATES DOWN LEG. DURATION:CONTINOUS, CONSTANT PAIN IS INCREASED BY:ACTIVITIES, PROLONGED STANDING, OTHERS SITTING PAIN IS DECREASED BY:USE OF PAIN MEDICATIONS TREATMENT/MEDICATIONS USED TO MANAGE PAIN:OTC PAIN RELIEVERS PLAN/GOALS/TREATMENT/INTERVENTION/FOLLOW UP:SEE PLAN NURSING NOTE: -. PAIN CENTER INTAKE QUESTIONS: DO YOU HAVE A HISTORY OF MRSA? :NO DO YOU TAKE A BLOOD THINNERS? :NO DO YOU HAVE ANY BLEEDING DISORDERS? :NO ANY NEW NUMBNESS OR WEAKNESS IN YOUR LEGS OR ARMS? :YES RIGHT LEG, PATIENT REPORTS, "SLEEPY FOOT" ANY PACEMAKER,DEFIBRILLATOR, OR DORSAL COLUMN STIMULATOR? :NO DO YOU HAVE ANY RASHES OR OPEN SORES? :NO ARE YOU ALLERGIC TO IV DYE? :NO ARE YOU DIABETIC? :NO ANY NEW PROBLEMS WITH YOUR MEDICATIONS? :NO HAVE YOU RECEIVED A VACCINE IN THE PAST 30 DAYS? :NO DO YOU PLAN TO RECEIVE A VACCINE IN THE NEXT 21 DAYS? :YES IF SO WHAT VACCINE AND WHEN? PATIENT REPORTS INTEREST IN COVID VACCINE. PATIENT EDUCATED TO WAIT AT LEAST TWO WEEKS POST PROCEDURE PRIOR TO RECEIVING VACCINE, PLEASE REINFORCE UPON COMPLETION OF THIS VISIT. DO YOU NEED ANY PRESCRIPTION? :NO DO YOU TAKE ANY IMMUNOSUPPRESSIVE MEDICATIONS? :NO ANY HISTORY OF SEIZURES? :YES EPILEPSY ANY HISTORY OF CARDIAC ISSUES OR EVENTS? :YES DO YOU HAVE ANY KIDNEY OR LIVER DISEASE? :NO DO YOU HAVE SLEEP APNEA? :NO ANY RECENT HEAD INJURY? :NO DO YOU HAVE ANY NEW INFECTIONS? : PATIENT STATES SHE HAD UTI OVER A MONTH AGO THAT HAS RESOLVED IS THERE A CHANCE YOU COULD BE ? :NO ARE YOU BREAST FEEDING? :NO WHEN DID YOU LAST EAT? : 11/08/20 1930 WHEN DID YOU LAST DRINK? : 11/09/20 1000 WHAT DID YOU LAST DRINK? : WATER NAME OF PERSON DRIVING YOU HOME? : DO YOU HAVE ANY OTHER QUESTIONS OR CONCERNS? : NO CURRENT MEDICATIONS TAKING CHLORHEXIDINE GLUCONATE 0.12 % SOLUTION RINSE MOUTH WITH 10ML FOR 1 MINUTE BEFORE BED MOUTH/THROAT TAKING AMITRIPTYLINE HCL 50 MG TABLET 2 TABLET AT BEDTIME ORALLY ONCE A DAY TAKING LIDOCAINE 4 % PATCH DIRECTED EXTERNALLY TAKING LIPITOR 40 MG TABLET 1 TABLET ORALLY ONCE A DAY TAKING TOPAMAX 200 MG TABLET DIRECTED ORALLY TWICE DAILY, NOTES: 1000 TAKING OMEPRAZOLE 10 MG CAPSULE DELAYED RELEASE 1 CAPSULE 30 MINUTES BEFORE MORNING MEAL ORALLY ONCE A DAY, NOTES: OTC NOT-TAKING TOPIRAMATE 200 MG TABLET TAKE ONE TABLET BY MOUTH TWICE A DAY ORALLY NOT-TAKING VALIUM 5 MG TABLET 1 TAB ORALLY 30 MINUTES PRIOR TO MRI MDD 1 NOT-TAKING OMEPRAZOLE MAGNESIUM 20 MG TABLET DELAYED RELEASE 1 TABLET 30 MINUTES BEFORE MORNING MEAL ORALLY ONCE A DAY NOT-TAKING ALPRAZOLAM 0.25 MG TABLET (SCHEDULE IV DRUG) TAKE 1 TABLET BY MOUTH ONE HOUR BEFORE MRI MAXIMUM DAILY DOSE 1 ORAL MEDICATION LIST REVIEWED AND RECONCILED WITH THE PATIENT PAST MEDICAL HISTORY GENERALIZED CONVULSIVE EPILEPSY LOCALIZATION-RELATED EPILEPSY LOW BACK PAIN SPONDYLOLYSIS LUMBAR RADICULOPATHY NECK PAIN 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 MIGRAINE WITHOUT AURA, NOT REFRACTORY DISORDERS OF INITIATING AND MAINTAINING SLEEP BILATERAL CARPAL TUNNEL SYNDROME LIPOMITOSIS ALLERGIES VALPROIC ACID: TIRED/FATIGUE - SIDE EFFECTS SULFAMETHOXAZOLE: HIVES - ALLERGY DEMEROL: SEIZURE - ALLERGY SOCIAL HISTORY GENERAL: TOBACCO USE ARE YOU A:NONSMOKER LATEX QUESTIONNAIRE LATEX ALLERGY : HAVE YOU EVER DEVELOPED ANY TYPE OF REACTION AFTER HANDLING LATEX PRODUCTS SUCH RUBBER GLOVES, CONDOMS, DIAPHRAGMS, BALLOONS, SOCKS, OR UNDERWEAR?NO LATEX ALLERGY : HAVE YOU EVER DEVELOPED ANY TYPE OF REACTION DURING OR AFTER DENTAL APPOINTMENT, VAGINAL/RECTAL EXAMINATION, SURGICAL PROCEDURE, OR ANY OTHER EXPOSURE?NO LATEX RISK : HAVE YOU EVER HAD ANY DIFFICULTY BREATHING OR HIVES AFTER EATING OR HANDLING ANY FRUITS, OR VEGETABLES; SUCH KIWI, BANANAS, STONE FRUITS, OR CHESTNUTSNO LATEX RISK : DO YOU HAVE A PREVIOUS PERSONAL HISTORY OF MORE THAN NINE SURGERIES, SPINA BIFIDA, OR REPEATED CATHERIZATIONS? NO LATEX RISK : ARE YOU FREQUENTLY EXPOSED TO LATEX PRODUCTS IN YOUR OCCUPATION?NO DATE ASKED : 11/06/2020 ALCOHOL USE: NO. RECREATIONAL DRUG USE DRUG USE?YES LEARNING BARRIERS / SPECIAL NEEDS BARRIERS TO LEARNING?NO HEARING IMPAIRED?NO VISION IMPAIRED?YES :CORRECTIVE LENSES COGNITIVELY IMPAIRED?YES PATIENT STATES SHE BELIEVES IT STEMS FROM THE SEIZURES. :LEARNING DISABILITY READINESS TO LEARN?YES LEARNING PREFERENCES?YES :BOOKLETS, HANDOUTS LEARNING CAPABILITIES PRESENT?YES EMOTIONAL BARRIERS?NO SPECIAL DEVICES?YES :CANE, BRACE FURNACE FILLER NEEDED?NO VITAL SIGNS WT 209.6 LBS, HT 64 IN, BMI 35.97 INDEX, BP 125/78 MM HG, HR 99 /MIN, RR 18 /MIN, TEMP 97.8 F, OXYGEN SAT % 97%, SAFE IN ENV? (Y/N) YES, NA INITIALS AW 1148, REVIEWED BY: APA. MAURY RN. EXAMINATION GENERAL EXAMINATION: A HISTORY AND PHYSICAL EXAM ON THE PATIENT WAS DONE ON 10/28/2020 (DATE OF ORIGINAL ASSESSMENT) IN PREPARATION OF SURGERY/PROCEDURE. I HAVE NOW REASSESSED THIS PATIENT'S HEALTH STATUS AND PERFORMED AN UPDATED EXAM TODAY. ALL CHANGES IN THE PATIENT'S HISTORY, PHYSICAL EXAM, PRE-EXISTING CONDITONS, AND INDICATIONS/CONTRAINDICATIONS TO THE PLANNED PROCEDURE AND ANESTHESIA ARE DOCUMENTED AND EVALUATED BELOW. I ATTEST TO THE ADEQUACY AND APPROPRIATENESS OF MY ASSESSMENT, AND CONFIRM THE NECESSITY FOR THE PLANNED PROCEDURE. THE PATIENT IS ALERT, ORIENTED TIMES THREE AND COOPERATIVE. LUNGS ARE CLEAR TO AUSCULTATION. HEART SHOWS REGULAR RHYTHM, NO MURMURS AND NO GALLOPS. ASSESSMENTS SPONDYLOSIS OF LUMBOSACRAL REGION WITHOUT MYELOPATHY OR RADICULOPATHY - M47.817 (PRIMARY) SPONDYLOSIS WITHOUT MYELOPATHY OR RADICULOPATHY, LUMBAR REGION - M47.816 TREATMENT SPONDYLOSIS OF LUMBOSACRAL REGION WITHOUT MYELOPATHY OR RADICULOPATHY [facility] FACET BLOCK (PAIN)[id number] COMPLETION OF PROCEDURAL VISIT WHEN MEETS CRITERIAINDRA MENDIOLA 11/09/2020 1:05:50 PM > CRITERIA MET MEDICATION: VALIUM TAB 5MG ORALLY (DIAZEPAM)MEGHAN AMBROSE 11/09/2020 11:54:22 AM > VERIFIED INDRA MENDIOLA 11/09/2020 11:58:55 AM > ADMINISTERED MEDICATION: OXYCODONE HCL TAB 5MG ORALLY MEGHAN AMBROSE 11/09/2020 11:54:52 AM > VERIFIED MAURYINDRA R 11/09/2020 11:59:06 AM > ADMINISTERED SALINE LOCKPEJUVENALINRDA R 11/09/2020 12:06:15 PM > 22G SL PLACED INTO RIGHT AC. BLOOD RETURN PRESENT, FLUSHING WELL. PATIENT TOELRATED WELL. MAURYINDRA R 11/09/2020 1:07:17 PM > SL REMOVED. CATHETER TIP INTACT AND BLEEDING CONTROLLED. DSD APPLIED. OTHERS NOTES: 11/06/20 0910 PAT COMPLETED. Darius KNOTT, INSPECTOR METAL FABRICATING. PROCEDURES PAIN NURSING RECORD PROCEDURE IN ROOM 1222, PHYSICIAN IN ROOM 1232, START 1238, FINISH 1245, PHYSICIAN OUT OF ROOM 1247, OUT OF ROOM 1253, ECG NORMAL SINUS, PATIENT SHIELDED YES, SAFETY STRAP YES, PREP CHLOROPREP Stefan QUINN RN, DRESSING TEGADERM DR. WHARTON LOC: MAURYINDRA R 11/09/2020 12:39:57 PM > , 1. ALERT, ORIENTED RESP: PETRMATTHEW,INDRA R 11/09/2020 12:40:00 PM > , 1. REGULAR, NO DYSPNEA COLOR: PETRAS,INDRA R 11/09/2020 12:40:02 PM > , 1. PINK SKIN: MAURY,INDRA R 11/09/2020 12:40:05 PM > , 1. WARM, DRY POSITION: MAURY,INDRA R 11/09/2020 12:40:08 PM > , 1. PRONE VITALS: PETRAS,INDRA R 11/09/2020 12:25:12 PM >141/91, 87, 16, 98% PETRAS,INDRA R 11/09/2020 12:27:57 PM > 149/94, 85, 16, 100% PETRAS,INDRA R 11/09/2020 12:41:51 PM >177/87, 86, 18, 98% PETRAS,INDRA R 11/09/2020 12:47:40 PM >164/86, 84, 18, 100% PETRAS,INDRA R 11/09/2020 1:03:17 PM > 145/81, 87, 16, 98% COMPLETION OF PROCEDURE APPOINTMENT: POST PAIN 3, DRESSING SITE DRY AND INTACT, IV DISCONTINUED, SITE CLEAR, CATHETER INTACT, GAIT STEADY, TEACHING COMPLETED, PATIENT ACKNOWLEDGES UNDERSTANDING YES, PROCEDURE APPOINTMENT COMPLETED AT 1305 BY: Johnathan MENDIOLA RN PN LUMBAR FACET BLOCK THERAPEUTIC PRE PROCEDURE DIAGNOSIS LUMBAR SPONDYLOSIS, LUMBOSACRAL SPONDYLOSIS POST PROCEDURE DIAGNOSIS LUMBAR SPONDYLOSIS, LUMBOSACRAL SPONDYLOSIS PROCEDURE BILATERAL L4-L5 AND BILATERAL L5-S1 LUMBAR FACET THERAPEUTIC BLOCK SURGEON DR. YONG WHARTON AUTOMATIC RIVETING MACHINE OPERATOR NONE ANESTHESIA LOCAL PRE PROCEDURE NOTE THE PATIENT HAS A HISTORY OF CHRONIC LOW BACK PAIN. I EVALUATED THE PATIENT AND REVIEWED THE CHART. I WENT OVER THE RISKS, ALTERNATIVES, AND BENEFITS ASSOCIATED WITH THIS PROCEDURE. THE PATIENT WOULD LIKE TO PROCEED AND GIVES CONSENT TO PERFORM THE PROCEDURE. THE PATIENT DENIES UNEXPLAINABLE WEIGHT LOSS, FEVER, CHILLS, OR NEW CHANGES IN URINARY OR BOWEL CONTROL. THE PATIENT IS COVID-19 NEGATIVE DESCRIPTION OF PROCEDURE THE PATIENT WAS BROUGHT TO THE PROCEDURE ROOM AND PLACED IN THE PRONE POSITION. THE LUMBOSACRAL AREA WAS CLEANED WITH CHLORAPREP SOLUTION AND DRAPED ASEPTICALLY. THE PROCEDURE WAS DONE UNDER STERILE CONDITIONS. A TIMEOUT WAS PERFORMED WHERE THE CONSENTED SITE WAS VERIFIED WITH EVERYONE IN THE ROOM. UNDER FLUOROSCOPIC GUIDANCE, THE TARGET POINT WAS SELECTED AT THE RIGHT AND LEFT L4-L5 AND RIGHT AND LEFT L5-S1 FACET JOINTS. TARGET POINT WAS SELECTED AFTER LATERAL ROTATION AND TILT OF THE MAGNIFIER OF THE C-ARM. I CONFIRMED AGAIN THE SITE OF TARGET. LIDOCAINE 0.5% WAS USED TO NUMB THE SKIN AND THE SUBCUTANEOUS TISSUE BELOW IT. SPINAL NEEDLES, 22-GAUGE, WERE ADVANCED UNDER FLUOROSCOPIC GUIDANCE AND FOLLOWING PATIENT FEEDBACK UNTIL THE TARGETS WERE TOUCHED. THE POSITION OF THE NEEDLES WAS VERIFIED WITH AP AND LATERAL VIEWS. AFTER PROPER POSITION OF THE NEEDLES WAS ACHIEVED, ISOVUE-M DYE 30%, 0.1 ML, WAS INJECTED SHOWING ADEQUATE SPREAD OF THE DYE. KENALOG 10 MG WAS INJECTED AT EACH SITE. THEN, A SOLUTION OF 1.0 ML OF BUPIVACAINE 0.125% OF WAS USED TO FLUSH EACH SITE. THE MEDICATION WAS VERIFIED WITH THE NURSE. THERE WAS NO EVIDENCE OF BLOOD, PARESTHESIA OR CEREBROSPINAL FLUID DURING THE PROCEDURE. THE PATIENT WAS SENT TO THE RECOVERY ROOM. THE PATIENT WAS MOVING THE EXTREMITIES AND DOING WELL. THERE WERE NO COMPLICATIONS DURING THE PROCEDURE. ESTIMATED BLOOD LOSS WAS LESS THAN 5 ML. FLUOROSCOPY TIME WAS 30 SECONDS POST PROCEDURE NOTE IF WE NEED TO DO ANOTHER INJECTION, CONSIDER GIVING THE PATIENT MORE MEDICATION BEFORE THE PROCEDURE. THE PATIENT WILL BE SEEN IN A FOLLOW UP IN THE NEXT FEW WEEKS. I AM LOOKING FOR LONG LASTING RELIEF FOR THE PATIENT WITH THIS INTERVENTION. INSTRUCTIONS WERE GIVEN, QUESTIONS WERE ANSWERED, AND THE PATIENT EXPRESSED UNDERSTANDING AND AGREES WITH THE PLAN. I, YUN VAUGHAN, DOCUMENTED THE ABOVE INFORMATION ACTING A SCRIBE FOR DR. WHARTON. I HAVE REVIEWED THE ABOVE DOCUMENT, WRITTEN BY YUN VAUGHAN, RETAIL PERFORMANCE COACH, AND I VERIFY THAT IT IS ACCURATE PROCEDURE CODES 04065 INJ PARAVERT F JNT L/S 1 LEV, MODIFIERS: 50 [id number] INJ PARAVERT F JNT L/S 2 LEV, MODIFIERS: 50 DISPOSITION & COMMUNICATION FOLLOW UP FOLLOW UP WITH [employer] (REASON: POST BILATERAL THERAPEUTIC LUMBAR FACET BLOCK L4-L5, L5-S1) ELECTRONICALLY SIGNED BY YONG WHARTON MD, ON 11/10/2020 AT 03:32 PM EDT DISCLAIMER : THIS IS A VISIT SUMMARY EXTRACTED FROM THE [employer] CHART. IT IS NOT A COPY OF THE [employer] PROGRESS NOTE. TALAT
== END ==
LOC: M PAIN 11:40
PROVIDERS: ATTEND Anesthesiology
DX: M47.817 Spondylosis without myelopathy or radiculopathy, lumbosacral region (principal); M47.816 Spondylosis without myelopathy or radiculopathy, lumbar region; G40.009 Localization-related (focal) (partial) idiopathic epilepsy and epileptic syndromes with seizures of localized onset, not intractable, without status epilepticus; M47.812 Spondylosis without myelopathy or radiculopathy, cervical region; G43.009 Migraine without aura, not intractable, without status migrainosus; Z79.899 Other long term (current) drug therapy; Z88.2 Allergy status to sulfonamides; Z88.8 Allergy status to other drugs, medicaments and biological substances
CPT/HCPCS: 64493; 64494; J3301; Q9967

== ENCOUNTER → 2020-12-09 | Outpatient (CLI) | payer OTHER ==
[~2020-12-09] MED LIST changes: -BUPIVACAINE HCL 0.25% 30ML VIAL As Ordered ONE; -ISOVUE-M 300 61% 15ML VIAL As Ordered ONE; -LIDOCAINE 1% SDV 30ML VIAL As Ordered ONE; -TRIAMCINOLONE ACETONIDE SUSP 40 MG/ML VIAL (J3301) As Ordered ONE; -diazePAM 5MG TABLET As Ordered ONE; -oxyCODONE 5MG TAB As Ordered ONE
--- NOTE | 2020-12-11 04:54 | ECWPNPC ---
PATIENT NAME: ELISSA ALVAREZ : 1960 GENDER: FEMALE VISIT DATE: 12/09/2020 DISCHARGE DATE: 12/09/20 1141 VISIT LOCKED DATE TIME: PHYSICIAN: DENA ELKINS RESOURCE: DENA ELKINS REASON FOR APPOINTMENT 1. POST BILATERAL THERAPEUTIC LUMBAR FACET BLOCK L4-5,L5-S1 HISTORY OF PRESENT ILLNESS DEPRESSION SCREENING: PHQ-2 (2015 EDITION) LITTLE INTEREST OR PLEASURE IN DOING THINGS?NOT AT ALL FEELING DOWN, DEPRESSED, OR HOPELESS?NOT AT ALL TOTAL SCORE0 GENERAL: HERE FOR POST PROCEDURE FOLLOW-UP. HAD BILATERAL LUMBAR THERAPEUTIC BLOCK L4-5, L5-S1 ON 11/09/2020. REPORTING SOME IMPROVEMENT IN PAIN THAT CONTINUES TODAY. PATIENT REPORTS SIGNIFICANT INCREASE IN LOW BACK PAIN OVER THE PAST FEW DAYS DUE TO INCREASED WORK AT HOME. REVIEWED MRI OF THE LS-SPINE AND DISCUSSED TREATMENT OPTIONS TO INCLUDE DIAGNOSTIC LUMBAR FACET BLOCK AND RADIOFREQUENCY. -. FALL RISK SCREENING: SCREENING : NO FALLS REPORTED IN THE LAST YEAR. PAIN SCREENING: PATIENT HAS A COMPLAINT OF ACUTE OR CHRONIC PAIN :YES LOCATION OF PAIN:LOW BACK INTENSITY OF PAIN (SCALE OF 1 TO 10):2 WHAT DOES YOUR PAIN FEEL LIKE:ACHING, SORE DURATION:CONTINOUS, CONSTANT, ALL DAY PAIN IS INCREASED BY:ACTIVITIES PAIN IS DECREASED BY:USE OF PAIN MEDICATIONS NURSING NOTE: -. PAIN CENTER INTAKE QUESTIONS: DO YOU HAVE A HISTORY OF MRSA? :NO DO YOU TAKE A BLOOD THINNERS? :NO DO YOU HAVE ANY BLEEDING DISORDERS? :NO ANY NEW NUMBNESS OR WEAKNESS IN YOUR LEGS OR ARMS? :YES PAIN GOING DOWN THE BACK SIDE OF HER LEG ANY PACEMAKER,DEFIBRILLATOR, OR DORSAL COLUMN STIMULATOR? :NO DO YOU HAVE ANY RASHES OR OPEN SORES? :NO ARE YOU ALLERGIC TO IV DYE? :NO ARE YOU DIABETIC? :NO ANY NEW PROBLEMS WITH YOUR MEDICATIONS? :NO HAVE YOU RECEIVED A VACCINE IN THE PAST 30 DAYS? :NO DO YOU PLAN TO RECEIVE A VACCINE IN THE NEXT 21 DAYS? :NO DO YOU NEED ANY PRESCRIPTION? :NO DO YOU TAKE ANY IMMUNOSUPPRESSIVE MEDICATIONS? :NO DO YOU HAVE ANY KIDNEY OR LIVER DISEASE? :NO IS THERE A CHANCE YOU COULD BE ? :NO ARE YOU BREAST FEEDING? :NO CURRENT MEDICATIONS TAKING CHLORHEXIDINE GLUCONATE 0.12 % SOLUTION RINSE MOUTH WITH 10ML FOR 1 MINUTE BEFORE BED MOUTH/THROAT TAKING AMITRIPTYLINE HCL 50 MG TABLET 2 TABLET AT BEDTIME ORALLY ONCE A DAY TAKING LIDOCAINE 4 % PATCH DIRECTED EXTERNALLY TAKING LIPITOR 40 MG TABLET 1 TABLET ORALLY ONCE A DAY TAKING TOPAMAX 200 MG TABLET DIRECTED ORALLY TWICE DAILY TAKING OMEPRAZOLE 10 MG CAPSULE DELAYED RELEASE 1 CAPSULE 30 MINUTES BEFORE MORNING MEAL ORALLY ONCE A DAY NOT-TAKING TOPIRAMATE 200 MG TABLET TAKE ONE TABLET BY MOUTH TWICE A DAY ORALLY NOT-TAKING VALIUM 5 MG TABLET 1 TAB ORALLY 30 MINUTES PRIOR TO MRI MDD 1 NOT-TAKING OMEPRAZOLE MAGNESIUM 20 MG TABLET DELAYED RELEASE 1 TABLET 30 MINUTES BEFORE MORNING MEAL ORALLY ONCE A DAY NOT-TAKING ALPRAZOLAM 0.25 MG TABLET (SCHEDULE IV DRUG) TAKE 1 TABLET BY MOUTH ONE HOUR BEFORE MRI MAXIMUM DAILY DOSE 1 ORAL MEDICATION LIST REVIEWED AND RECONCILED WITH THE PATIENT PAST MEDICAL HISTORY GENERALIZED CONVULSIVE EPILEPSY LOCALIZATION-RELATED EPILEPSY LOW BACK PAIN SPONDYLOLYSIS LUMBAR RADICULOPATHY NECK PAIN 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 MIGRAINE WITHOUT AURA, NOT REFRACTORY DISORDERS OF INITIATING AND MAINTAINING SLEEP BILATERAL CARPAL TUNNEL SYNDROME LIPOMITOSIS ALLERGIES VALPROIC ACID: TIRED/FATIGUE - SIDE EFFECTS SULFAMETHOXAZOLE: HIVES - ALLERGY DEMEROL: SEIZURE - ALLERGY SOCIAL HISTORY GENERAL: TOBACCO USE ARE YOU A:NONSMOKER LATEX QUESTIONNAIRE LATEX ALLERGY : HAVE YOU EVER DEVELOPED ANY TYPE OF REACTION AFTER HANDLING LATEX PRODUCTS SUCH RUBBER GLOVES, CONDOMS, DIAPHRAGMS, BALLOONS, SOCKS, OR UNDERWEAR?NO LATEX ALLERGY : HAVE YOU EVER DEVELOPED ANY TYPE OF REACTION DURING OR AFTER DENTAL APPOINTMENT, VAGINAL/RECTAL EXAMINATION, SURGICAL PROCEDURE, OR ANY OTHER EXPOSURE?NO LATEX RISK : HAVE YOU EVER HAD ANY DIFFICULTY BREATHING OR HIVES AFTER EATING OR HANDLING ANY FRUITS, OR VEGETABLES; SUCH KIWI, BANANAS, STONE FRUITS, OR CHESTNUTSNO LATEX RISK : DO YOU HAVE A PREVIOUS PERSONAL HISTORY OF MORE THAN NINE SURGERIES, SPINA BIFIDA, OR REPEATED CATHERIZATIONS? NO LATEX RISK : ARE YOU FREQUENTLY EXPOSED TO LATEX PRODUCTS IN YOUR OCCUPATION?NO DATE ASKED : 12/09/2020 ALCOHOL USE: NO. RECREATIONAL DRUG USE DRUG USE?YES HOW OFTEN AND HOW MUCH? MEDICAL MARIJUANA NOT YET, DID CBD LANGUAGE LANGUAGES SPOKEN:NORTHERN IRISH LEARNING BARRIERS / SPECIAL NEEDS BARRIERS TO LEARNING?NO HEARING IMPAIRED?NO VISION IMPAIRED?YES :CORRECTIVE LENSES COGNITIVELY IMPAIRED?YES PATIENT STATES SHE BELIEVES IT STEMS FROM THE SEIZURES. :LEARNING DISABILITY READINESS TO LEARN?YES LEARNING PREFERENCES?YES :BOOKLETS, HANDOUTS LEARNING CAPABILITIES PRESENT?YES EMOTIONAL BARRIERS?NO SPECIAL DEVICES?YES :CANE, BRACE NEEDED DRYWALLER NEEDED?NO REVIEW OF SYSTEMS CONSTITUTIONAL: ANY RECENT FEVER NO . CHILLS NO . WEIGHT CHANGE OF UNKNOWN REASONS NO . GASTROENTEROLOGY: NEW UNEXPLAINABLE CHANGES IN BOWEL CONTROL NO . CONSTIPATION NO . GENITOURINARY: ANY NEW CHANGE IN BLADDER CONTROL? NO . NEUROLOGY: NEW ONSET DIZZINESS OR NEUROLOGICAL CHANGES NOT MENTIONED NO . NEW NUMBNESS OR PAIN PATTERNS NOT MENTIONED AND PERTINENT TO TODAY'S VISIT NO . CARDIOLOGY: NEW CHEST PRESSURE NO . PATIENT DENIES NO . RESPIRATORY: UNEXPLAINABLE COUGH NO . NEW SHORTNESS OF BREATH NO . VITAL SIGNS WT 208.6 LBS, HT 64 IN, BMI 35.80 INDEX, BP 112/77 MM HG, HR 79 /MIN, RR 18 /MIN, TEMP 98.0 F, OXYGEN SAT % 98%, SAFE IN ENV? (Y/N) YES, NA INITIALS SC 11:05T.KATERINA TURK. EXAMINATION GENERAL EXAMINATION: GENERAL AWAKE,ALERT ,PLEAASANT . PSYCH AFFECT NORMAL . LUNGS: LUNG [place] ARE CLEAR TO AUSCULTATION BILATERALLY. GOOD MOVEMENT OF AIR . HEART: S1, S2 IN A REGULAR RATE AND RHYTHM. NO SIGNIFICANT MURMURS, RUBS OR GALLOPS NOTED . LUMBAR: PALPATION: + FOR PAIN OVER L/S SPINE. + FOR PAIN OVER L/S PARASPINALS .SPECIFIC POINT TENDERNESS OVER BILAT L4/5-L5/S1 LUMBAR FACETS WITH FACET LOADING. NEUROLOGIC EXAM: NORMAL SENSATION LIGHT TOUCH BILAT. LOWER EXTREMITIES . DIAGNOSTIC TESTS REVIEWED MRI L/S SPINE 10/2020. ASSESSMENTS SPONDYLOSIS OF LUMBOSACRAL REGION WITHOUT MYELOPATHY OR RADICULOPATHY - M47.817 (PRIMARY) OTHER CHRONIC PAIN - G89.29 TREATMENT SPONDYLOSIS OF LUMBOSACRAL REGION WITHOUT MYELOPATHY OR RADICULOPATHY NOTES: BILATERAL DIAGNOSTIC LUMBAR FACET BLOCK L4-5,L5-S1 PRINTED AND REVIEWED PRE PROCEDURE INFORMATION, PATIENT VERBALIZED UNDERSTANDING OLIVIER TURK. OTHER CHRONIC PAIN PAIN PROCEDURE LOGDATE OF PROCEDURE1PROCEDURE:BILATERAL THERAPEUTIC LUMBAR FACET BLOCK L4-L5,L5-Y0NZTRSL OF PRE SEDATEVALIUM 5MG, OXYCODONE 5MGRESULT:REDUCTION IN PAIN CONTINUES TODAY PROCEDURE CODES FA211 ESTABILISHED PATIENT [facility] CHARGE DISPOSITION & COMMUNICATION FOLLOW UP POST PROCEDURE (REASON: BILATERAL DIAGNOSTIC LUMBAR FACET BLOCK L4-5,L5-S1) ELECTRONICALLY SIGNED BY GUANAKITO CEJA ON 12/10/2020 AT 04:31 PM EDT DISCLAIMER : THIS IS A VISIT SUMMARY EXTRACTED FROM THE [employer] CHART. IT IS NOT A COPY OF THE [employer] PROGRESS NOTE. SHANID
== END ==
LOC: M PAIN 10:45
PROVIDERS: ATTEND Nurse Practitioner Family
DX: M47.817 Spondylosis without myelopathy or radiculopathy, lumbosacral region (principal); G89.29 Other chronic pain; G40.909 Epilepsy, unspecified, not intractable, without status epilepticus; G43.909 Migraine, unspecified, not intractable, without status migrainosus; Z88.2 Allergy status to sulfonamides; Z88.5 Allergy status to narcotic agent; Z88.8 Allergy status to other drugs, medicaments and biological substances; Z79.899 Other long term (current) drug therapy

== ENCOUNTER → 2021-06-24 | Outpatient (CLI) | payer OTHER ==
[2021-06-24 12:58] LABS: BASO # 0.1 10^3/uL (0.0-0.2); BASO % 0.8 % (0.0-1.0); EOS # 0.3 10^3/uL (0.0-0.5); EOS % 3.3 % (0.0-3.0); HEMATOCRIT 44.1 % (36.0-47.0); HEMOGLOBIN 14.1 g/dl (12.0-15.5); LYMPH # 3.2 10^3/uL (1.5-5.0); LYMPH % 34.5 % (24.0-44.0); MEAN CORPUSCULAR HEMOGLOBIN 29.8 pg (27.0-33.0); MEAN CORPUSCULAR VOLUME 93.2 fl (80.0-96.0); MONO # 0.6 10^3/uL (0.0-0.8); MONO % 6.2 % (2.0-8.0); NEUTROPHILS # 5.1 10^3/uL (1.5-8.5); NEUTROPHILS % 54.8 % (36.0-66.0); PLATELET COUNT, AUTOMATED 307 10^3/uL (150-450); RED BLOOD COUNT 4.73 10^6/uL (4.00-5.40); WHITE BLOOD COUNT 9.2 10^3/uL (4.0-10.0)
[2021-06-24 13:25] LABS: ALBUMIN 3.9 GM/DL (3.2-5.2); BILIRUBIN,TOTAL 0.3 MG/DL (0.2-1.0); CALCIUM LEVEL 9.4 MG/DL (8.5-10.1); CREATININE FOR GFR 1.11 MG/DL (0.55-1.30); GLOMERULAR FILTRATION RATE 53.6 (>51); POTASSIUM SERUM 4.2 MEQ/L (3.5-5.1)
== END ==
LOC: M WUC 10:05
PROVIDERS: ATTEND Physician Assistant
DX: R10.30 Lower abdominal pain, unspecified (principal)

== ENCOUNTER → 2021-06-24 | Outpatient (REF) | payer OTHER | LOC: M LAB REF 12:28 | PROVIDERS: ATTEND Physician Assistant | DX: R10.30 Lower abdominal pain, unspecified (principal) ==

== ENCOUNTER → 2021-07-22 | Outpatient (CLI) | payer OTHER ==
--- NOTE | 2021-07-22 13:46 | REP ---
INDICATION: LEFT BREAST LUMP/PAIN. COMPARISON: Screening mammogram, 09/16/2020. TECHNIQUE: 2D and 3D spot compression images of the left breast, in the area of the skin marker, were obtained in the CC and MLO orientations. A supplemental whole breast 2D and 3D MLO image was also obtained. Targeted left breast ultrasound was performed. FINDINGS: In the area marked with a skin marker there is no mammographic correlate to the palpable abnormality in the left breast. Left breast ultrasound: There are no sonographically identifiable cystic or solid masses in the left breast. IMPRESSION: BIRADS/ACR : Category 1: Negative. The patient letter being requested is M1. RECOMMENDATION: Follow-up screening mammogram in September of 2021. <Electronically signed by Wali Alvarado > 07/22/21 [id number]
== END ==
LOC: M WHC 07:40
PROVIDERS: ATTEND Family Medicine Addiction Medicine
DX: N63.20 Unspecified lump in the left breast, unspecified quadrant (principal)

== ENCOUNTER → 2021-10-19 | Outpatient (CLI) | payer OTHER | LOC: M WHC 10:08 | PROVIDERS: ATTEND Family Medicine Addiction Medicine | DX: Z12.31 Encounter for screening mammogram for malignant neoplasm of breast (principal) ==

== ENCOUNTER → 2021-11-12 | Outpatient (CLI) | payer OTHER | LOC: M WUC 10:10 | PROVIDERS: ATTEND Family Medicine Addiction Medicine | DX: M25.531 Pain in right wrist (principal); R93.6 Abnormal findings on diagnostic imaging of limbs ==

== ENCOUNTER → 2022-04-20 | Outpatient (CLI) | payer OTHER | LOC: M PAIN 11:30 | PROVIDERS: ATTEND Nurse Practitioner Family | DX: M51.16 Intervertebral disc disorders with radiculopathy, lumbar region (principal); G40.009 Localization-related (focal) (partial) idiopathic epilepsy and epileptic syndromes with seizures of localized onset, not intractable, without status epilepticus; M47.812 Spondylosis without myelopathy or radiculopathy, cervical region; H91.93 Unspecified hearing loss, bilateral; G44.229 Chronic tension-type headache, not intractable; G43.909 Migraine, unspecified, not intractable, without status migrainosus; G47.00 Insomnia, unspecified; Z79.899 Other long term (current) drug therapy; Z88.2 Allergy status to sulfonamides; Z88.8 Allergy status to other drugs, medicaments and biological substances ==

== ENCOUNTER → 2022-05-30 | Outpatient (CLI) | payer OTHER ==
[2022-05-30 18:11] LABS: BASO # 0.1 10^3/uL (0.0-0.2); BASO % 1.1 % (0.0-1.0); EOS # 0.3 10^3/uL (0.0-0.5); EOS % 4.3 % (0.0-3.0); HEMOGLOBIN 13.7 g/dl (12.0-15.5); LYMPH # 2.5 10^3/uL (1.5-5.0); MEAN CORPUSCULAR HEMOGLOBIN 28.9 pg (27.0-33.0); MEAN CORPUSCULAR HGB CONC 31.1 g/dl (32.0-36.5); MEAN CORPUSCULAR VOLUME 92.8 fl (80.0-96.0); MONO # 0.4 10^3/uL (0.0-0.8); NEUTROPHILS # 3.1 10^3/uL (1.5-8.5); NEUTROPHILS % 49.3 % (36.0-66.0); PLATELET COUNT, AUTOMATED 299 10^3/uL (150-450); RED BLOOD COUNT 4.74 10^6/uL (4.00-5.40); WHITE BLOOD COUNT 6.3 10^3/uL (4.0-10.0)
[2022-05-30 18:57] LABS: ALBUMIN 3.6 GM/DL (3.2-5.2); ALT/SGPT 24 U/L (12-78); BILIRUBIN,TOTAL 0.3 MG/DL (0.2-1.0); BLOOD UREA NITROGEN 19 MG/DL (7-18); CALCIUM LEVEL 8.9 MG/DL (8.8-10.2); CARBON DIOXIDE LEVEL 23 MEQ/L (21-32); CHLORIDE LEVEL 109 MEQ/L (98-107); CREATININE FOR GFR 1.32 MG/DL (0.55-1.30); GLOMERULAR FILTRATION RATE 43.7 (>45); GLUCOSE, FASTING 168 MG/DL (70-100); POTASSIUM SERUM 4.1 MEQ/L (3.5-5.1); RHEUMATOID FACTOR QUANT < 10.0 IU/ML (<15.0); SODIUM LEVEL 139 MEQ/L (136-145); TOTAL PROTEIN 6.7 GM/DL (6.4-8.2)
[2022-05-30 19:28] LABS: ERYTHROCYTE SEDIMENTATION RATE 16 mm/hr (0-30)
[2022-05-30 19:29] LABS: TOTAL 25(OH) VITAMIN D 26.8 NG/ML (30.0-100.0); VITAMIN B12 LEVEL 543 PG/ML (247-911)
== END ==
LOC: M WUC 11:30
PROVIDERS: ATTEND Psychiatry & Neurology Neurology
DX: R51.9 Headache, unspecified (principal)

== ENCOUNTER → 2022-05-31 | Outpatient (REF) | payer OTHER | LOC: M WUC 19:25 | PROVIDERS: ATTEND Physician Assistant | DX: R30.0 Dysuria (principal) ==

== ENCOUNTER → 2022-06-02 | Outpatient (REF) | payer OTHER ==
[~2022-06-02] MED LIST changes: +BUPR150T12 PO; +ESTR0.1C5 TOP
[2022-06-04 12:08] LABS: ANTINUCLEAR ANTIBODIES DIRECT Negative (Negative)
== END ==
LOC: M LAB REF 16:58
PROVIDERS: ATTEND Internal Medicine Nephrology
DX: H04.129 Dry eye syndrome of unspecified lacrimal gland (principal)

== ENCOUNTER → 2022-06-02 | Outpatient (CLI) | payer OTHER ==
[2022-06-06 19:08] LABS: TOPIRAMATE LEVEL 23.5 ug/mL (2.0-25.0)
== END ==
LOC: M WUC 13:58
PROVIDERS: ATTEND Psychiatry & Neurology Neurology
DX: R51.9 Headache, unspecified (principal); H04.129 Dry eye syndrome of unspecified lacrimal gland

== ENCOUNTER 2022-06-08 12:43 | Inpatient (IN) | payer OTHER ==
[~2022-06-08] VITALS: Ht 162.6 cm; Wt 85.9 kg
[~2022-06-08 12:43] MED LIST changes: -BUPR150T12 PO; -ESTR0.1C5 TOP
[2022-06-08] MEDS ORDERED: ESTR0.1C5 TOP (12:54)
[2022-06-08] MEDS ORDERED: BUPR150T12 PO (12:54)
[2022-06-08] MEDS ORDERED: ALPRAZolam 0.5 MG TAB PO ONE (13:50)
[2022-06-08 14:20] LABS: HEMATOCRIT 45.5 % (36.0-47.0); HEMOGLOBIN 14.9 g/dl (12.0-15.5); MEAN CORPUSCULAR HEMOGLOBIN 29.6 pg (27.0-33.0); MEAN CORPUSCULAR HGB CONC 32.7 g/dl (32.0-36.5); MEAN CORPUSCULAR VOLUME 90.3 fl (80.0-96.0); PLATELET COUNT, AUTOMATED 335 10^3/uL (150-450); RED BLOOD COUNT 5.04 10^6/uL (4.00-5.40); WHITE BLOOD COUNT 9.2 10^3/uL (4.0-10.0)
[2022-06-08 15:00] LABS: RSV AMPLIFICATION NEGATIVE (NEGATIVE)
[2022-06-08 15:22] LABS: HCG, SERUM QUALITATIVE NEGATIVE (NEGATIVE)
[2022-06-08 16:05] LABS: ACETAMINOPHEN LEVEL < 2.0 UG/ML (10.0-30.0); ALBUMIN 4.2 GM/DL (3.2-5.2); ALT/SGPT 31 U/L (12-78); BILIRUBIN,DIRECT 0.1 MG/DL (0.0-0.2); BILIRUBIN,TOTAL 0.4 MG/DL (0.2-1.0); BLOOD UREA NITROGEN 16 MG/DL (7-18); CALCIUM LEVEL 9.8 MG/DL (8.8-10.2); CARBON DIOXIDE LEVEL 21 MEQ/L (21-32); CHLORIDE LEVEL 107 MEQ/L (98-107); CREATININE FOR GFR 1.29 MG/DL (0.55-1.30); ETHYL ALCOHOL (ETHANOL) < 0.003 % (0.000-0.010); GLOMERULAR FILTRATION RATE 44.9 (>45); GLUCOSE, FASTING 107 MG/DL (70-100); SALICYLATE LEVEL 2.5 MG/DL (5.0-30.0); SODIUM LEVEL 137 MEQ/L (136-145); TOTAL PROTEIN 7.9 GM/DL (6.4-8.2)
[2022-06-08 16:22] LABS: AMPHETAMINES LEVEL URINE NEGATIVE (NEGATIVE); BARBITURATES URINE NEGATIVE (NEGATIVE); BENZODIAZEPINES URINE NEGATIVE (NEGATIVE); CANNABINOIDS URINE POSITIVE (NEGATIVE); COCAINE METABOLITE URINE NEGATIVE (NEGATIVE); METHADONE URINE NEGATIVE (NEGATIVE); OPIATES URINE NEGATIVE (NEGATIVE); PHENCYCLIDINE URINE NEGATIVE (NEGATIVE)
[2022-06-08] MEDS ORDERED: IBUPROFEN 400MG TAB PO PRN (17:35)
[2022-06-08] MEDS ORDERED: LORazepam 1 MG TAB PO PRN (17:35)
[2022-06-08] MEDS ORDERED: HOME MED LIST COMPLETE! XX SCH (18:10)
[2022-06-08] MEDS: ATORVASTATIN 20 MG TAB PO SCH (21:54)
[2022-06-08] MEDS: TOPIRAMATE (TopAMAX) 100 MG TAB PO SCH (21:54)
[2022-06-08] MEDS: AMITRIPTYLINE 50 MG TAB PO SCH (21:54)
[2022-06-08] MEDS: traZODone 50 MG TAB PO PRN (21:58)
[2022-06-08 22:33] VITALS: BP 134/88
[2022-06-09] MEDS ORDERED: buPROPion **XL** TABLET 150MG (WELLBUTRIN XL) PO SCH (09:00)
[2022-06-09] MEDS: TOPIRAMATE (TopAMAX) 100 MG TAB PO SCH ×2 (09:58→20:23)
[2022-06-09] MEDS: LevoFLOXacin 750 MG TABLET PO SCH (10:49)
[2022-06-09] MEDS: VENLAFAXINE **XR** 37.5 MG CAPSULE PO SCH (10:52)
[2022-06-09 19:19] VITALS: BP 134/88
[2022-06-09] MEDS: ATORVASTATIN 20 MG TAB PO SCH (20:23)
[2022-06-09] MEDS: AMITRIPTYLINE 50 MG TAB PO SCH (20:23)
[2022-06-09] MEDS: MOM 30ML SUSPENSION UDC PO PRN (20:23)
[2022-06-09] MEDS: traZODone 50 MG TAB PO PRN (20:24)
[2022-06-10 06:23] VITALS: BP 137/78
[2022-06-10] MEDS: VENLAFAXINE **XR** 37.5 MG CAPSULE PO SCH (09:07)
[2022-06-10] MEDS: TOPIRAMATE (TopAMAX) 100 MG TAB PO SCH ×2 (09:07→20:46)
[2022-06-10] MEDS: MAALOX 30 ML SUSP *UDC PO PRN (13:34)
[2022-06-10 18:00] VITALS: BP 138/90
[2022-06-10] MEDS: ATORVASTATIN 20 MG TAB PO SCH (20:46)
[2022-06-10] MEDS: traZODone 50 MG TAB PO PRN (20:46)
[2022-06-10] MEDS: AMITRIPTYLINE 50 MG TAB PO SCH (20:46)
[2022-06-10] MEDS: MOM 30ML SUSPENSION UDC PO PRN (20:47)
[2022-06-11 06:57] VITALS: BP 120/61
[2022-06-11] MEDS: TOPIRAMATE (TopAMAX) 100 MG TAB PO SCH ×2 (08:39→20:31)
[2022-06-11] MEDS: LevoFLOXacin 750 MG TABLET PO SCH (08:39)
[2022-06-11] MEDS: VENLAFAXINE **XR** 75MG CAPSULE PO SCH (08:39)
[2022-06-11] MEDS: MIRALAX *UNIT DOSE* 17GM PACKET PO SCH (09:00)
[2022-06-11] MEDS ORDERED: PREPARATION H OINTMENT (HEMORRHOID) PR PRN (14:20)
[2022-06-11] MEDS: MAALOX 30 ML SUSP *UDC PO PRN (14:37)
[2022-06-11 18:06] VITALS: BP 129/81
[2022-06-11] MEDS: AMITRIPTYLINE 50 MG TAB PO SCH (20:31)
[2022-06-11] MEDS: ATORVASTATIN 20 MG TAB PO SCH (20:31)
[2022-06-11] MEDS: traZODone 50 MG TAB PO PRN (20:31)
[2022-06-12 06:00] VITALS: BP 105/68
[2022-06-12] MEDS: MIRALAX *UNIT DOSE* 17GM PACKET PO SCH (08:27)
[2022-06-12] MEDS: VENLAFAXINE **XR** 75MG CAPSULE PO SCH (08:27)
[2022-06-12] MEDS: TOPIRAMATE (TopAMAX) 100 MG TAB PO SCH ×2 (08:27→20:33)
[2022-06-12 18:00] VITALS: BP 127/82
[2022-06-12] MEDS: traZODone 50 MG TAB PO PRN (20:33)
[2022-06-12] MEDS: AMITRIPTYLINE 50 MG TAB PO SCH (20:33)
[2022-06-12] MEDS: ATORVASTATIN 20 MG TAB PO SCH (20:33)
[2022-06-13 06:23] VITALS: BP 118/74
[2022-06-13] MEDS: TOPIRAMATE (TopAMAX) 100 MG TAB PO SCH (08:39)
[2022-06-13] MEDS: LevoFLOXacin 750 MG TABLET PO SCH (08:39)
[2022-06-13] MEDS: MIRALAX *UNIT DOSE* 17GM PACKET PO SCH (08:39)
[2022-06-13] MEDS: VENLAFAXINE **XR** 75MG CAPSULE PO SCH (08:39)
[2022-06-13] MEDS ORDERED: TRAZ-252 PO (09:32)
[2022-06-13] MEDS ORDERED: VENL75CA47 PO (09:32)
[2022-06-13] MEDS ORDERED: LEVO1TAB40 PO (09:32)
== END 2022-06-13 12:25 | disposition home or self-care (01) | DRG 885 ==
LOC: M ED 12:43 → M ED INP 17:34 → M PSY 20:49
PROVIDERS: ADMIT Psychiatry & Neurology Psychiatry; ATTEND Psychiatry & Neurology Psychiatry
DX: F33.9 Major depressive disorder, recurrent, unspecified (principal); N39.0 Urinary tract infection, site not specified; F43.10 Post-traumatic stress disorder, unspecified; G40.909 Epilepsy, unspecified, not intractable, without status epilepticus; G62.9 Polyneuropathy, unspecified; E78.5 Hyperlipidemia, unspecified; N18.9 Chronic kidney disease, unspecified; M48.00 Spinal stenosis, site unspecified; M54.9 Dorsalgia, unspecified; G89.29 Other chronic pain; Z79.899 Other long term (current) drug therapy; Z88.2 Allergy status to sulfonamides; Z88.8 Allergy status to other drugs, medicaments and biological substances; Z91.51 Personal history of suicidal behavior; Z62.810 Personal history of physical and sexual abuse in childhood; Z62.811 Personal history of psychological abuse in childhood; Z91.411 Personal history of adult psychological abuse; Z91.410 Personal history of adult physical and sexual abuse

== ENCOUNTER → 2022-06-21 | Outpatient (REF) | payer OTHER ==
[~2022-06-21] MED LIST changes: +BUPR150T12 PO; +ESTR0.1C5 TOP; +LEVO1TAB40 PO; +TRAZ-252 PO; +VENL75CA47 PO
[2022-06-21 20:32] LABS: ALBUMIN 3.7 G/DL (3.2-5.2); ALT/SGPT 24 U/L (7.0-40); BILIRUBIN,TOTAL 0.3 MG/DL (0.3-1.2); BLOOD UREA NITROGEN 15 MG/DL (9-23); CARBON DIOXIDE LEVEL 22 MMOL/L (20-31); CHLORIDE LEVEL 109 MMOL/L (98-107); CHOLESTEROL LEVEL 152 MG/DL (<200); CHOLESTEROL RISK RATIO 2.58 (<5); CREATININE FOR GFR 1.15 MG/DL (0.55-1.30); GLOMERULAR FILTRATION RATE 51.2 (>45); GLUCOSE, FASTING 99 MG/DL (74-106); HDL CHOLESTEROL 58.8 MG/DL (>40); NON-HDL-C 93 MG/DL; POTASSIUM SERUM 4.1 MMOL/L (3.5-5.1); SODIUM LEVEL 142 MMOL/L (136-145); THYROID STIMULATING HORMONE 5.627 uIU/ML (0.55-4.78); TOTAL PROTEIN 6.3 G/DL; TRIGLYCERIDES LEVEL 101 MG/DL (<150)
[2022-06-21 22:37] LABS: HEPATITIS C VIRUS ABY INDEX < 0.8 INDEX (<0.8)
[2022-06-21 22:38] LABS: HIV 1&2 SCREEN CENTAUR NEGATIVE (NEGATIVE)
== END ==
LOC: M LAB REF 16:34
PROVIDERS: ATTEND Family Medicine Addiction Medicine
DX: R53.83 Other fatigue (principal); E66.3 Overweight

== ENCOUNTER → 2022-08-15 | Outpatient (CLI) | payer OTHER | LOC: M LABSMTC 10:02 | PROVIDERS: ATTEND Anesthesiology | DX: Z01.812 Encounter for preprocedural laboratory examination (principal); Z20.822 Contact with and (suspected) exposure to COVID-19 ==

== ENCOUNTER → 2022-08-18 | Outpatient (CLI) | payer OTHER ==
[~2022-08-18] MED LIST changes: +ISOVUE-M 300 61% 15ML VIAL As Ordered ONE; +LIDOCAINE 1% SDV 30ML VIAL As Ordered ONE; +NORCO, ANEXSIA 5/325MG TABLET (HYDROcodone/ACETAMINOPHEN) As Ordered ONE; +diazePAM 5MG TABLET As Ordered ONE; +methylPREDNISolone SUSP 40MG/ML 1ML VIAL (DEPO MEDROL) As Ordered ONE
== END ==
LOC: M PAIN 10:00
PROVIDERS: ATTEND Anesthesiology
DX: M51.16 Intervertebral disc disorders with radiculopathy, lumbar region (principal); G40.409 Other generalized epilepsy and epileptic syndromes, not intractable, without status epilepticus; M47.812 Spondylosis without myelopathy or radiculopathy, cervical region; M54.81 Occipital neuralgia; G43.909 Migraine, unspecified, not intractable, without status migrainosus; G44.229 Chronic tension-type headache, not intractable; H91.93 Unspecified hearing loss, bilateral; M19.90 Unspecified osteoarthritis, unspecified site; Z79.899 Other long term (current) drug therapy; Z88.2 Allergy status to sulfonamides; Z88.8 Allergy status to other drugs, medicaments and biological substances
CPT/HCPCS: 62323; J1030

== ENCOUNTER → 2022-09-19 | Outpatient (CLI) | payer OTHER ==
[~2022-09-19] MED LIST changes: -ISOVUE-M 300 61% 15ML VIAL As Ordered ONE; -LIDOCAINE 1% SDV 30ML VIAL As Ordered ONE; -NORCO, ANEXSIA 5/325MG TABLET (HYDROcodone/ACETAMINOPHEN) As Ordered ONE; -diazePAM 5MG TABLET As Ordered ONE; -methylPREDNISolone SUSP 40MG/ML 1ML VIAL (DEPO MEDROL) As Ordered ONE
== END ==
LOC: M PAIN 09:45
PROVIDERS: ATTEND Nurse Practitioner Family
DX: M51.16 Intervertebral disc disorders with radiculopathy, lumbar region (principal); G89.29 Other chronic pain; G40.409 Other generalized epilepsy and epileptic syndromes, not intractable, without status epilepticus; M47.812 Spondylosis without myelopathy or radiculopathy, cervical region; M54.81 Occipital neuralgia; G43.909 Migraine, unspecified, not intractable, without status migrainosus; G44.229 Chronic tension-type headache, not intractable; H91.93 Unspecified hearing loss, bilateral; M19.90 Unspecified osteoarthritis, unspecified site; Z79.899 Other long term (current) drug therapy; Z88.2 Allergy status to sulfonamides; Z88.8 Allergy status to other drugs, medicaments and biological substances; Z79.52 Long term (current) use of systemic steroids

== ENCOUNTER → 2022-09-22 | Outpatient (CLI) | payer OTHER | LOC: M RAD 09:02 | PROVIDERS: ATTEND Family Medicine Addiction Medicine | DX: J44.9 Chronic obstructive pulmonary disease, unspecified (principal) ==

== ENCOUNTER → 2022-09-22 | Outpatient (REF) | payer OTHER ==
[2022-09-22 17:03] LABS: ALBUMIN 3.7 G/DL (3.2-5.2); BILIRUBIN,TOTAL 0.3 MG/DL (0.3-1.2); CALCIUM LEVEL 9.3 MG/DL (8.3-10.6); CHOLESTEROL RISK RATIO 3.19 (<5); CREATININE FOR GFR 1.15 MG/DL (0.55-1.30); GLOMERULAR FILTRATION RATE 51.2 (>45); HDL CHOLESTEROL 66.4 MG/DL (>40); POTASSIUM SERUM 3.7 MMOL/L (3.5-5.1); THYROID STIMULATING HORMONE 0.781 uIU/ML (0.55-4.78); TOTAL PROTEIN 6.5 G/DL (5.7-8.2)
== END ==
LOC: M LAB REF 16:26
PROVIDERS: ATTEND Family Medicine Addiction Medicine
DX: E03.9 Hypothyroidism, unspecified (principal)

== ENCOUNTER → 2022-12-23 | Outpatient (REF) | payer OTHER ==
[2022-12-23 12:36] LABS: ALBUMIN 3.5 G/DL (3.2-5.2); BILIRUBIN,TOTAL 0.3 MG/DL (0.3-1.2); CALCIUM LEVEL 8.7 MG/DL (8.3-10.6); CREATININE FOR GFR 1.13 MG/DL (0.55-1.30); GLOMERULAR FILTRATION RATE 52.1 (>45); POTASSIUM SERUM 4.4 MMOL/L (3.5-5.1); TOTAL PROTEIN 6.3 G/DL (5.7-8.2)
[2022-12-23 12:38] LABS: THYROID STIMULATING HORMONE 3.509 uIU/ML (0.55-4.78)
[2022-12-23 13:01] LABS: HEMOGLOBIN A1c 5.9 % (4.0-6.0)
== END ==
LOC: M LAB REF 12:04
PROVIDERS: ATTEND Family Medicine Addiction Medicine
DX: R73.03 Prediabetes (principal)

== ENCOUNTER → 2023-02-02 | Outpatient (CLI) | payer OTHER ==
[~2023-02-02] MED LIST changes: +METHACHOLINE KIT INH ONE
== END ==
LOC: M CARPUL 08:42
PROVIDERS: ATTEND Nurse Practitioner Family
DX: R06.02 Shortness of breath (principal)
CPT/HCPCS: 94070; J7674

== ENCOUNTER → 2023-02-02 | Outpatient (CLI) | payer OTHER ==
[~2023-02-02] MED LIST changes: -METHACHOLINE KIT INH ONE
== END ==
LOC: M RAD 08:40
PROVIDERS: ATTEND Nurse Practitioner Family
DX: R06.02 Shortness of breath (principal)

== ENCOUNTER → 2023-03-15 | Outpatient (REF) | payer OTHER | LOC: M LAB REF 16:04 | PROVIDERS: ATTEND Nurse Practitioner Family | DX: N39.0 Urinary tract infection, site not specified (principal); R30.0 Dysuria ==